=== PATIENT | male | born 1970 | race African-American/Black ===

== ENCOUNTER 2022-04-20 18:52 | Observation (INO) ==
--- NOTE | 2022-04-20 19:16 | XRay Report ---
XR chest 1V portable HISTORY: 52 years-old Male Chest pain, nonspecific acute chest pain COMPARISON: Chest radiograph and CTA chest 05/08/2012 TECHNIQUE: AP view of the chest FINDINGS: Cardiac silhouette is enlarged. Prior median sternotomy with cardiac valvular prosthesis. No pneumoth orax, or large pleural effusion or overt pulmonary edema. Descending thoracic aortic tortuosity with suggested aneurysmal dilation. Degenerative changes of the shoulders and spine. Surgical clips within the right subclavicular tissues. IMPRESSION: 1. Cardiac megaly without acute processes of the chest. 2. Descending thoracic aortic tortuosity/aneurysmal dilation. ACT 112: Negative or not required by law. The above report was generated using voice recognition software. It may contain grammatical, syntax o r spelling errors. Electronically signed by: Jarrett Crowe M.D. 04/20/2022 7:14 PM
[2022-04-20] MEDS ORDERED: NITROGLYCERIN 2% OINTMENT 30GM TUBE EXT STA (19:20)
[2022-04-20 20:15] LABS: Basophils # (auto) 0.04 K/uL (0-0.2); Basophils % (auto) 0.7 %; Eosinophils # (auto) 0.09 K/uL (0-0.50); Eosinophils % (auto) 1.7 %; Hematocrit (blood only) 45.2 % (42.0-52.0); Hemoglobin 15.4 g/dl (14.0-18.0); Immature Granulocytes # (auto) 0.02 K/uL (0.01-0.20); Immature Granulocytes % (auto) 0.4 %; Lymphocytes # (auto) 2.15 K/uL (1.2-3.4); Mean Corpuscular Hemoglobin 29.9 pg (25.0-34.0); Mean Corpuscular Hgb Conc 34.1 g/dL (32.0-36.0); Mean Corpuscular Volume 87.8 fL (80.0-100.0); Mean Platelet Volume 11.3 fL (9.4-12.4); Monocytes % (auto) 7.4 %; Neutrophils # (auto) 2.67 K/uL (1.40-6.50); Neutrophils % (auto) 49.8 %; Platelet Count 202 K/uL (130-400); RDW Coefficient of Variation 12.9 % (11.5-14.5); RDW Standard Deviation 41.4 fL (36.4-46.3); Red Blood Count 5.15 M/uL (4.70-6.10); White Blood Count 5.37 K/ul (4.8-10.8)
[2022-04-20 20:31] LABS: Albumin Globulin Ratio 1.4 (0.9-2); Albumin Level 4.1 gm/dl (3.4-5.0); BUN Creatinine Ratio 10.5 (10-20); Bilirubin,Total 0.9 mg/dl (0.2-1.0); Calcium 8.9 mg/dl (8.5-10.1); Creatinine Clr Calc Pharmacy 115.2 ml/min; Est GFR (African American) 106.2 ml/min; Est GFR (Non-African American) 91.7 ml/min; Potassium 3.4 mmol/L (3.5-5.1); Total Protein 7.1 gm/dl (6.0-8.3)
[2022-04-20 20:37] LABS: Troponin I High Sensitivity 7.2 pg/ml (0-20)
[2022-04-20 20:44] LABS: INR 1.8 (0.9-1.1); Partial Thromboplastin Ratio 1.1; Partial Thromboplastin Time 31.3 Seconds (21.0-31.0); Prothrombin Time 18.9 Seconds (9.0-12.0)
[2022-04-20] MEDS ORDERED: OPTIRAY 320 500ml IV ONE (21:29)
--- NOTE | 2022-04-20 21:32 | Emergency Department Note ---
Impression & Plan Chest pain, History of dissection of thoracic aorta, Aortic valve replaced ED Provider Note INFORMANT: Patient ED PROVIDER(S): Anand Laura MD CHIEF COMPLAINT: Chest pain PLAN: Disposition: Admitted Condition: Good Outpatient prescription management: none Referral: None MEDICAL DECISION MAKING: Patient presented to emergency department because of chest pain. He had pain relief with nitro prehospital. He felt some discomfort starting to come back and was given Nitropaste which alleviated any further pain. On reassessment he was still pain-free. He had a nonischemic ECG. Chest x-ray revealed a widened mediastinum and given his history CT dissection study of the thoracic aorta was ordered. Patient CBC and chemistry panel were unremarkable. Cardiac troponin was negative. CT dissection study reveals no obvious thoracic pathology. His study per protocol did not go through the abdomen and pelvis all the way. The patient has no abdominal symptoms or lower extremity symptoms at this time or the recent days. Given his complicated history and the chest pain relieved with nitroglycerin I discussed further management in the hospital. Patient was in agreement. Consultation was made with Dr. sanchze of the [facility]. Patient was evaluated in the ER and admitted for further management After review of the information above and other included data, I feel the patient requires admission. Triage Nursing notes reviewed and agree them. Vital Signs: reviewed and remarkable for no significant abnormalities Prior /Outside records reviewed: none Differential diagnosis: Cardiac ischemia, aortic dissection, pulmonary embolism, pneumothorax, pneumonia, pericarditis, myocarditis, esophageal rupture, GERD, cholecystitis, pancreatitis, musculoskeletal, as well as other pathologies. Diagnostics, as interpreted by me: ECG: Twelve-lead ECG reveals a normal sinus rhythm at 72 beats from. Left atrial enlargement. Nonspecific ST abnormality. LVH. No ST elevation Cardiac Monitoring: Cardiac monitoring ordered by me: The patient was placed on continuous cardiac monitoring and observed. It revealed a normal sinus rhythm at 67 beats per minute without ectopy or evidence of dysrhythmia. Medical decision rules: none Imaging studies: Chest x-ray shows dilation of the thoracic aorta. CT dissection study reveals no acute surgical problems. Prior surgical changes noted. Radiology did note the celiac trunk is abnormally opacified. HPI: The patient is a 52year old male who presents to the Emergency Room with complaints of chest pain. This started yesterday and is retrosternal. The patient also notes the following associated symptoms, some transient nausea. The patient has been given aspirin and nitroglycerin x2 by EMS for relieving factors. Current pain is rated as 0/10. Patient has a history of thoracic aortic dissection 12 years ago. He notes aortic repair as well as valve replacement. Patient is on metoprolol and Coumadin. Patient does note he occasionally misses doses of his medications. Pt denies LOC, headache, fevers, chills, diaphoresis, visual changes, neck pain, breathing difficulties, nausea, vomiting, abdominal pain, back pain, melena, hematochezia, urinary symptoms, numbness, weakness, lymphadenopathy, rash, or other complaints. PAST MEDICAL HISTORY: See Below, thoracic aortic aneurysm and dissection PAST SURGICAL HISTORY: See Below, repair of thoracic aneurysm SOCIAL HISTORY: See Below, uses marijuana HOME MEDICATIONS: See Below ALLERGIES: See Below VITALS: See Below PHYSICAL EXAMINATION: GENERAL: Awake, alert, well-appearing, in no distress HENT: Normocephalic, atraumatic. Oropharynx unremarkable. EYES: Normal conjunctiva. Sclera non-icteric. NECK: Inspection normal. Non-tender. Supple. No nuchal rigidity. FROM. No masses. RESPIRATORY: Clear to auscultation. No wheezes. No rales. Normal respiratory effort. CARDIAC: Normal rate. Normal rhythm. No murmurs. No rubs. Extremities warm and well perfused. Pulses equal. No JVD. GI: Soft, non-distended. No tenderness to palpation. No rebound or guarding. No masses. RECTAL: Deferred. MUSCULOSKELETAL: Atraumatic. Chest examination reveals no tenderness. The back is symmetrical on inspection without obvious abnormality. There is no CVA tenderness to palpation. No joint edema. LOWER EXTREMITIES: Calves are equal size bilaterally and non-tender. No edema. No discoloration. NEURO: Normal sensorium. No sensory or motor deficits noted. SKIN: No rash or jaundice noted. 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 Replacement of the descending thoracic aorta with a 30 mm tube graft -- follows with [facility] Cardiology Dyslipidemia History of colon polyps HTN (hypertension) Intracardiac thrombosis hx; approx 5 years ago -- hospitalized at [facility] -- says treated with AC therapy Non compliance w medication regimen "I'm a bad patient" -- admits to not taking prescribed medications "consistently" Poor historian Surgical History History of colonoscopy History of hernia surgery as an infant History of wisdom tooth extraction Mechanical heart valve present Family History Mother Colon cancer Father Prostate cancer Social History Smoking Status: Former smoker Second Hand Exposure: No; Hx Alcohol Use: Yes Alcohol type: beer and hard liquor Hx Substance Use: Yes Last Used Substance: Hours (ago) Preferred Language: Syriac Communication Ability: Effective Avionics Systems Technician Required: No Beliefs That Will Affect Care: None Current Living Situation: Alone current occupation: Unemployed Feels Safe at Home: Yes Assistive Devices: None Allergies Allergies Allergy/AdvReac Type Severity Reaction Status Date / Time No Known Allergies Allergy Mild Verified 04/20/22 20:53 Home Meds Home Medications Medication Instructions Recorded Confirmed amlodipine 10 mg tablet 10 mg PO QPM 01/04/21 04/20/22 aspirin 81 mg capsule 81 mg PO QPM 01/04/21 04/20/22 lisinopril 40 mg tablet 40 mg PO QPM 01/04/21 04/20/22 metoprolol succinate 200 mg 200 mg PO QPM 01/04/21 04/20/22 tablet,extended release 24 hr warfarin 5 mg tablet 5 mg PO DIRECTED 01/04/21 04/20/22 atorvastatin 20 mg tablet 20 mg PO HS 04/20/22 04/20/22 pantoprazole 40 mg tablet,delayed 40 mg PO DAILY 04/20/22 04/20/22 release trazodone 50 mg tablet 50 mg PO HS PRN Sleep 04/20/22 04/20/22 Results & Data (ED) Vital Signs Vital Signs - 24 hr 04/20/22 19:03 04/20/22 19:03 04/20/22 19:02 Temperature 36.9 C Temperature Source Oral Pulse Rate 79 Pulse Rate [Apical] 79 Pulse Rate from SpO2 Sensor Pulse Rhythm Regular Pulse Rhythm [Apical] Regular Pulse Strength Normal Pulse Strength [Apical] Normal Respiratory Rate 20 20 Respiratory Effort / Characteristics Non-Labored Non-Labored Respiratory Depth Normal Normal Respiratory Pattern Regular Regular Blood Pressure 146/85 H Blood Pressure [Right Arm] 146/85 H Blood Pressure Mean 105 Blood Pressure Mean [Right Arm] 105 Blood Pressure Position Lying Pulse Oximetry 95 95 95 Oxygen Delivery Method Room Air Room Air Room Air Sepsis Recent Fever Within 48 Hours No Sepsis New/Unexplained Change in Mental Status No Sepsis Action Taken by Nursing No Action Required 04/20/22 19:04 04/20/22 19:05 04/20/22 19:10 Temperature Temperature Source Pulse Rate 74 70 75 Pulse Rate [Apical] Pulse Rate from SpO2 Sensor 70 69 Pulse Rhythm Pulse Rhythm [Apical] Pulse Strength Pulse Strength [Apical] Respiratory Rate 19 19 Respiratory Effort / Characteristics Respiratory Depth Respiratory Pattern Blood Pressure Blood Pressure [Right Arm] Blood Pressure Mean Blood Pressure Mean [Right Arm] Blood Pressure Position Pulse Oximetry 96 94 Oxygen Delivery Method Sepsis Recent Fever Within 48 Hours Sepsis New/Unexplained Change in Mental Status Sepsis Action Taken by Nursing 04/20/22 19:20 04/20/22 19:30 04/20/22 19:40 Temperature Temperature Source Pulse Rate 74 71 72 Pulse Rate [Apical] Pulse Rate from SpO2 Sensor 72 71 72 Pulse Rhythm Pulse Rhythm [Apical] Pulse Strength Pulse Strength [Apical] Respiratory Rate 19 18 23 Respiratory Effort / Characteristics Respiratory Depth Respiratory Pattern Blood Pressure Blood Pressure [Right Arm] Blood Pressure Mean Blood Pressure Mean [Right Arm] Blood Pressure Position Pulse Oximetry 98 96 97 Oxygen Delivery Method Sepsis Recent Fever Within 48 Hours Sepsis New/Unexplained Change in Mental Status Sepsis Action Taken by Nursing 04/20/22 19:41 04/20/22 19:41 04/20/22 19:50 Temperature Temperature Source Pulse Rate 69 67 Pulse Rate [Apical] Pulse Rate from SpO2 Sensor 70 67 Pulse Rhythm Pulse Rhythm [Apical] Pulse Strength Pulse Strength [Apical] Respiratory Rate 20 19 Respiratory Effort / Characteristics Respiratory Depth Respiratory Pattern Blood Pressure 133/87 Blood Pressure [Right Arm] Blood Pressure Mean 102 Blood Pressure Mean [Right Arm] Blood Pressure Position Pulse Oximetry 96 96 Oxygen Delivery Method Sepsis Recent Fever Within 48 Hours Sepsis New/Unexplained Change in Mental Status Sepsis Action Taken by Nursing 04/20/22 20:00 04/20/22 20:00 04/20/22 20:10 Temperature Temperature Source Pulse Rate 66 68 Pulse Rate [Apical] Pulse Rate from SpO2 Sensor 66 68 Pulse Rhythm Pulse Rhythm [Apical] Pulse Strength Pulse Strength [Apical] Respiratory Rate 19 22 Respiratory Effort / Characteristics Respiratory Depth Respiratory Pattern Blood Pressure 142/86 H Blood Pressure [Right Arm] Blood Pressure Mean 104 Blood Pressure Mean [Right Arm] Blood Pressure Position Pulse Oximetry 96 96 Oxygen Delivery Method Sepsis Recent Fever Within 48 Hours Sepsis New/Unexplained Change in Mental Status Sepsis Action Taken by Nursing 04/20/22 20:20 04/20/22 20:30 04/20/22 20:30 Temperature Temperature Source Pulse Rate 65 Pulse Rate [Apical] Pulse Rate from SpO2 Sensor 66 72 Pulse Rhythm Pulse Rhythm [Apical] Pulse Strength Pulse Strength [Apical] Respiratory Rate 15 Respiratory Effort / Characteristics Respiratory Depth Respiratory Pattern Blood Pressure 131/83 Blood Pressure [Right Arm] Blood Pressure Mean 99 Blood Pressure Mean [Right Arm] Blood Pressure Position Pulse Oximetry 97 94 Oxygen Delivery Method Sepsis Recent Fever Within 48 Hours Sepsis New/Unexplained Change in Mental Status Sepsis Action Taken by Nursing 04/20/22 20:40 04/20/22 20:50 04/20/22 21:00 Temperature Temperature Source Pulse Rate 66 Pulse Rate [Apical] Pulse Rate from SpO2 Sensor 69 66 Pulse Rhythm Pulse Rhythm [Apical] Pulse Strength Pulse Strength [Apical] Respiratory Rate 18 Respiratory Effort / Characteristics Respiratory Depth Respiratory Pattern Blood Pressure 116/76 Blood Pressure [Right Arm] Blood Pressure Mean 89 Blood Pressure Mean [Right Arm] Blood Pressure Position Pulse Oximetry 96 96 Oxygen Delivery Method Sepsis Recent Fever Within 48 Hours Sepsis New/Unexplained Change in Mental Status Sepsis Action Taken by Nursing 04/20/22 21:00 04/20/22 21:31 04/20/22 21:32 Temperature Temperature Source Pulse Rate 66 68 66 Pulse Rate [Apical] Pulse Rate from SpO2 Sensor 67 69 67 Pulse Rhythm Pulse Rhythm [Apical] Pulse Strength Pulse Strength [Apical] Respiratory Rate 17 20 21 Respiratory Effort / Characteristics Respiratory Depth Respiratory Pattern Blood Pressure Blood Pressure [Right Arm] Blood Pressure Mean Blood Pressure Mean [Right Arm] Blood Pressure Position Pulse Oximetry 95 96 96 Oxygen Delivery Method Sepsis Recent Fever Within 48 Hours Sepsis New/Unexplained Change in Mental Status Sepsis Action Taken by Nursing 04/20/22 21:32 04/20/22 21:40 Temperature Temperature Source Pulse Rate 68 Pulse Rate [Apical] Pulse Rate from SpO2 Sensor 70 Pulse Rhythm Pulse Rhythm [Apical] Pulse Strength Pulse Strength [Apical] Respiratory Rate 18 Respiratory Effort / Characteristics Respiratory Depth Respiratory Pattern Blood Pressure 123/82 Blood Pressure [Right Arm] Blood Pressure Mean 95 Blood Pressure Mean [Right Arm] Blood Pressure Position Pulse Oximetry 97 Oxygen Delivery Method Sepsis Recent Fever Within 48 Hours Sepsis New/Unexplained Change in Mental Status Sepsis Action Taken by Nursing Laboratory Data 04/20/22 19:21 04/20/22 19:21 Lab Results 04/20/22 04/20/22 04/20/22 Range/Units 19:21 19:21 19:21 WBC 5.37 (4.8-10.8) K/ul RBC 5.15 (4.70-6.10) M/uL Hgb 15.4 (14.0-18.0) g/dl Hct 45.2 (42.0-52.0) % MCV 87.8 (80.0-100.0) fL MCH 29.9 (25.0-34.0) pg MCHC 34.1 (32.0-36.0) g/dL RDW Std Deviation 41.4 (36.4-46.3) fL RDW Coeff of Eyal 12.9 (11.5-14.5) % Plt Count 202 (130-400) K/uL MPV 11.3 (9.4-12.4) fL Immature Gran % (Auto) 0.4 % Neut % (Auto) 49.8 % Lymph % (Auto) 40.0 % Bee % (Auto) 7.4 % Eos % (Auto) 1.7 % Baso % (Auto) 0.7 % Neut # (Auto) 2.67 (1.40-6.50) K/uL Lymph # (Auto) 2.15 (1.2-3.4) K/uL Bee # (Auto) 0.40 (0.11-0.59) K/uL Eos # (Auto) 0.09 (0-0.50) K/uL Baso # (Auto) 0.04 (0-0.2) K/uL Immature Gran # (Auto) 0.02 (0.01-0.20) K/uL PT 18.9 H (9.0-12.0) Seconds INR 1.8 H (0.9-1.1) APTT 31.3 H (21.0-31.0) Seconds PTT Ratio 1.1 Sodium 141 (136-145) mmol/L Potassium 3.4 L (3.5-5.1) mmol/L Chloride 109 H (98-107) mmol/L Carbon Dioxide 27 (21-32) mmol/L Anion Gap 5 (3-11) BUN 10 (6-23) mg/dl Creatinine 0.95 (0.6-1.4) mg/dl Est Cr Clr Drug Dosing 115.2 ml/min Est GFR ( Amer) 106.2 ml/min Est GFR (Non-Af Amer) 91.7 ml/min BUN/Creatinine Ratio 10.5 (10-20) Glucose 107 H (70-99(Fasting)) mg/dl Calcium 8.9 (8.5-10.1) mg/dl Total Bilirubin 0.9 (0.2-1.0) mg/dl AST 20 (13-39) U/L ALT 18 (7-52) U/L Alkaline Phosphatase 57 (34-104) U/L Troponin I High Sens 7.2 (0-20) pg/ml Total Protein 7.1 (6.0-8.3) gm/dl Albumin 4.1 (3.4-5.0) gm/dl Globulin 3.0 (2.5-4.0) gm/dl Albumin/Globulin Ratio 1.4 (0.9-2) Lipase 34 (11-82) U/L Administered Medications Discontinued Medications Ioversol (Optiray 320 500ml) 99 ml IV ONCE ONE Stop: 04/20/22 21:30 Last Admin: 04/20/22 21:30 Dose: 99 ml Documented By: DG Nitroglycerin (Nitroglycerin 2% Ointment 30gm Tube) 0.5 inch EXT NOW STA Stop: 04/20/22 19:21 Last Admin: 04/20/22 19:39 Dose: 0.5 inch Documented By: RSL Imaging Data Radiologist's Impression: Chest X-Ray 04/20/22 19:02 XR chest 1V portable HISTORY: 52 years-old Male Chest pain, nonspecific acute chest pain COMPARISON: Chest radiograph and CTA chest 05/08/2012 TECHNIQUE: AP view of the chest FINDINGS: Cardiac silhouette is enlarged. Prior median sternotomy with cardiac valvular prosthesis. No pneumothorax, or large pleural effusion or overt pulmonary edema. Descending thoracic aortic tortuosity with suggested aneurysmal dilation. Degenerative changes of the shoulders and spine. Surgical clips within the right subclavicular tissues. IMPRESSION: 1. Cardiac megaly without acute processes of the chest. 2. Descending thoracic aortic tortuosity/aneurysmal dilation. ACT 112: Negative or not required by law. The above report was generated using voice recognition software. It may contain grammatical, syntax or spelling errors. Electronically signed by: Jarrett Crowe M.D. 04/20/2022 7:14 PM Discharge Plan Visit Data Chief Complaint: Chest Pain Stated Complaint: chest pain ED Provider: Anand Laura Discharge Problem: Chest pain, History of dissection of thoracic aorta, Aortic valve replaced Forms Stand Alone Forms: My [facility] [email or web address] Prescriptions Prescriptions: No Action metoprolol succinate 200 mg Tablet Extended Release 24 Hr 200 mg PO QPM amlodipine 10 mg Tablet 10 mg PO QPM warfarin 5 mg Tablet 5 mg PO DIRECTED Rx Instructions: PER PT "SON PUT 2 TABS IN EVERY DAY PILL BOX, I STOPPED FOR A WHILE, NOT SURE WHAT LEVEL I'M AT NOW". lisinopril 40 mg Tablet 40 mg PO QPM aspirin 81 mg Capsule 81 mg PO QPM atorvastatin 20 mg tablet 20 mg PO HS Rx Instructions: LAST FILLED 06/10/21 FOR 90 DAYS. trazodone 50 mg tablet 50 mg PO HS PRN (Reason: Sleep) pantoprazole 40 mg tablet,delayed release (DR/EC) 40 mg PO DAILY Referrals Referrals: Cristhian Lynn MD [Primary Care Provider] -
[2022-04-21] MEDS ORDERED: POTASSIUM CHLORIDE CRTAB 20 MEQ TABCR PO STA ×2 (00:03→08:12)
[2022-04-21] MEDS ORDERED: SODIUM CHLORIDE 0.9% 1000ML 1,000 ML IV SCH (00:55)
[2022-04-21] MEDS ORDERED: POLYETHYLENE (MIRALAX) 17 GM PACK PO PRN (00:55)
[2022-04-21] MEDS ORDERED: NITROGLYCERIN SL 0.4 MG/TAB TAB SL PRN (00:55)
[2022-04-21] MEDS ORDERED: traZODone HCL 50 MG TAB PO PRN (00:55)
[2022-04-21] MEDS ORDERED: Heparin IV Adult Wt-Based Low-Dose *NO* Bolus Protocol IV SCH (00:55)
[2022-04-21] MEDS ORDERED: ACETAMINOPHEN 325 MG TAB PO PRN (00:55)
[2022-04-21] MEDS: HEPARIN SODIUM/DEXTROSE 25,000 UNITS/500 ML BAG IV SCH (03:02)
--- NOTE | 2022-04-21 04:07 | History and Physical Report ---
DATE OF ADMISSION: 04/20/2022. CHIEF COMPLAINT: Chest pain. HISTORY OF PRESENT ILLNESS: A 52-year-old male with past medical history significant for dissection of thoracic aorta, status post repair, status post aortic valve replacement, hypertension, abdominal aortic aneurysm without rupture, history of benign neoplasm of colon, history of acute blood loss anemia, history of hepatitis C antibody positive, depression, presents with chest pain. The patient states he is noncompliant with medications, misses the medications sometimes. Last week, he missed his blood pressure medications. He is also not currently being followed with anticoagulation clinic for some time, comes because since yesterday morning, he has chest pain, pain left side radiating to his left arm, pressure-like feeling, constant pain. Nothing made worse. Occasionally feels lightheaded. Denies any shortness of breath, no nausea. Nitro relieved the pain. Currently, no pain. No fevers, no cough, no runny nose. He has some mild abdominal discomfort. Usually constipated. Moves bowels every 3 days. Normal bladder movements. No swelling in the legs. Hemodynamically stable. ALLERGIES: No known drug allergies. PAST MEDICAL HISTORY: As mentioned above. PAST SURGICAL HISTORY: Colonoscopy, left heart catheterization, thoracoabdominal aneurysm repair, aortic valve replacement with prosthetic valve. MEDICATIONS: The patient is on amlodipine 10 mg p.o. a.m., aspirin 81 mg p.o. a.m., atorvastatin 20 mg p.o. at bedtime, lisinopril 40 mg p.o. a.m., metoprolol succinate 200 mg p.o. a.m., Protonix 40 mg p.o. daily, trazodone 50 mg p.o. at bedtime p.r.n., warfarin 5 mg as directed. FAMILY HISTORY: Significant for father had prostate cancer, mother had colon cancer. SOCIAL HISTORY: Quit smoking in 2020. Smoked quarter pack a day for 15 years. Alcohol occasional. Remote history of crack cocaine use in 2005. REVIEW OF SYSTEMS: As per HPI. Rest of review of systems is negative. PHYSICAL EXAMINATION: GENERAL: The patient is of moderate build, not in acute distress. VITAL SIGNS: Temperature 36.9, pulse 66, respiratory rate 18, blood pressure 125/92, oxygen 94% on room air. HEENT: Pupils equal, round and reactive to light. Oral mucosa moist. NECK: No JVD. No neck masses. CARDIOVASCULAR: S1 and S2 heard. Regular rate and rhythm. No murmur, no gallop. RESPIRATORY SYSTEM: Normal AP diameter. No accessory muscle use. No wheezing, crackles. ABDOMEN: Soft, bowel sounds present, nontender, no distention. CENTRAL NERVOUS SYSTEM: Cranial nerves II through XII grossly intact, nonfocal. EXTREMITIES: No edema, no erythema. LABORATORY DATA: WBC 5.3, hemoglobin 15.4, hematocrit 45.2, platelets 202. PT 18.9, INR 1.8. Sodium 144, potassium 3.4, chloride 109, bicarbonate 27, BUN 10, creatinine 0.9, serum glucose 107, calcium 8.9, total bilirubin 0.9, AST 20, ALT 18, alkaline phosphatase 57. Troponin I high sensitivity is 1.2, lipase 34. SARS-CoV-2 rapid test negative. IMAGING DATA: CTA chest, preliminary report, repair of the ascending thoracic aorta and aortic valve replacement are stable. Chest x-ray, cardiomegaly without acute process.. EKG: Normal sinus rhythm at a rate of 72, possible left atrial enlargement, left axis deviation, left ventricular hypertrophy, nonspecific T-wave abnormality seen. ASSESSMENT AND PLAN: This is a 50-year-old male, who presents with chest pain. 1. Chest pain: Rule out acute coronary syndrome. Initial workup was negative. We will follow serial enzymes, echocardiogram. We will keep n.p.o. after midnight. Consult cardiology in the a.m. for further recommendation. Monitor in the [employer]. 2. History of aortic root aneurysm, noted in 2010 while he was awaiting a surgical repair had acute type A thoracic aortic dissection that extended into aortic root of iliac bifurcation, which he underwent emergent repair and mechanical valve conduit in 02/2011 and again, he developed recurrent expanding 6.5-cm arch aneurysm dissection that extended to iliacs. He was status post repair.Today CTA chest, no acute findings. We will follow the final report. The patient has aortic valve replacement, on Coumadin. INR is subtherapeutic at one point. The patient is not following regularly with Coumadin Clinic. We will place him on low-dose IV heparin and continue his Coumadin. Monitor PT/INR. Await cardiac input. 3. History of hypertension: Continue his lisinopril, metoprolol, amlodipine. We will monitor the blood pressure. The patient is missing his blood pressure medications. 4. History of Hyperlipidemia: On statin. 5. History of HCV antibody positive: Needs followup. 6. Deep venous thrombosis prophylaxis: INR is 1.8. He is on IV heparin. We will follow the PT/INR. DISPOSITION: Closely monitor in the med tele. Expect to discharge home and follow with family doctor. Level 1 full code. Job ID: [id number] [facility]ie
[2022-04-21] MEDS ORDERED: FLUARIX QUADRIVALENT 0.5 ML SYR IM ONE (05:18)
--- NOTE | 2022-04-21 08:13 | CT Scan Report ---
CT ANGIOGRAPHY OF THE CHEST DISSECTION PROTOCOL CLINICAL HISTORY: chest pain, hx of thoracic dissection COMPARISON STUDY: Chest radiograph performed earlier today. Chest CT May 08, 2012. TECHNIQUE: Before and following the IV administration of 99 mL of Optiray, helical axial images of th e chest were obtained. Maximal intensity projections and sagittal and coronal reformats were viewed on an independent 3D workstation. IV contrast was administered without complication. Automated expo sure control was utilized for the study. A dose lowering technique was utilized adhering to the prin ciples of YUSUF. CT DOSE: 830.82 mGy.cm FINDINGS: Type A aortic dissection is again noted, as shown on prior CT of May 08, 2012. Status pos t median sternotomy and aortic valve replacement and aortic root repair. Interval aortic arch repair since CT of May 08, 2012 is noted. Residual dissection flap extends into the brachiocephalic trunk. However, the brachiocephalic trunk, common carotid, subclavian and vertebral arteries are patent. The few and false lumens are opacified. Outpouching of the proximal aortic arch is likely postsurgical. The aorta measures 5.5 cm in caliber at this level. The distal aortic arch measures 4.3 cm. The dista l descending aorta measures 4 cm and the proximal abdominal aorta measures 3.7 cm. Celiac axis is pat ent and arises from the true lumen. The inferior extent of the dissection flap is not imaged on this exam. Trace left pleural effusion is likely postsurgical. There is no pericardial effusion. There is mild cardiomegaly. No central pulmonary emboli are identified. The remainder of the pulmonary arterie s suboptimally opacified. Lingular opacity favors atelectasis or scarring. There is no consolidation to suggest pneumonia. There is no pneumothorax. No thoracic lymphadenopathy is present. No acute frac tures within the visualized bony thorax are noted. Visualized portions of the upper abdomen are unrem arkable. IMPRESSION: 1. Status post aortic valve replacement and aortic root replacement. Interval aortic arch repair sin e CT of May 08, 2012. Residual dissection flap with opacification of the true and false lumens. No v essel occlusion. No definite acute findings however correlation with prior postsurgical CT, if availa ble, would be of benefit. Thoracic aortic dilatation, as described above. 2. Trace left pleural effusion which is likely postsurgical. 3. No consolidation to suggest pneumonia. 4. Mild cardiomegaly. ACT 112: Negative or not required by law. Electronically signed by: Romero Harris M.D. 04/21/2022 8:11 AM
[2022-04-21 08:29] LABS: Basophils # (auto) 0.03 K/uL (0-0.2); Basophils % (auto) 0.6 %; Eosinophils # (auto) 0.08 K/uL (0-0.50); Eosinophils % (auto) 1.6 %; Hematocrit (blood only) 45.8 % (42.0-52.0); Hemoglobin 15.6 g/dl (14.0-18.0); Immature Granulocytes # (auto) 0.01 K/uL (0.01-0.20); Immature Granulocytes % (auto) 0.2 %; Lymphocytes # (auto) 1.94 K/uL (1.2-3.4); Lymphocytes % (auto) 39.4 %; Mean Corpuscular Hemoglobin 29.5 pg (25.0-34.0); Mean Corpuscular Hgb Conc 34.1 g/dL (32.0-36.0); Mean Corpuscular Volume 86.7 fL (80.0-100.0); Mean Platelet Volume 11.1 fL (9.4-12.4); Monocytes # (auto) 0.45 K/uL (0.11-0.59); Monocytes % (auto) 9.1 %; Neutrophils # (auto) 2.41 K/uL (1.40-6.50); Neutrophils % (auto) 49.1 %; Platelet Count 217 K/uL (130-400); RDW Coefficient of Variation 12.8 % (11.5-14.5); RDW Standard Deviation 40.3 fL (36.4-46.3); Red Blood Count 5.28 M/uL (4.70-6.10); White Blood Count 4.92 K/ul (4.8-10.8)
[2022-04-21 08:38] LABS: BUN Creatinine Ratio 8.7 (10-20); Calcium 9.1 mg/dl (8.5-10.1); Creatinine Clr Calc Pharmacy 109.2 ml/min; Est GFR (African American) 110.4 ml/min; Est GFR (Non-African American) 95.3 ml/min
[2022-04-21 08:45] LABS: Troponin I High Sensitivity 9.2 pg/ml (0-20)
[2022-04-21 08:49] LABS: INR 1.9 (0.9-1.1); Prothrombin Time 19.1 Seconds (9.0-12.0)
[2022-04-21] MEDS: PANTOprazole 40 MG TAB PO SCH (09:10)
--- NOTE | 2022-04-21 09:12 | Cardiology Consultation ---
Date of Consultation April 21, 2022 Assessment & Plan (1) Chest pain: (2) History of dissection of thoracic aorta: (3) H/O mechanical aortic valve replacement: Plan Medically complex 52-year-old male who initially presented to the emergency department due to chest pain. -Overall chest pain is very atypical. High sensitive troponins were negative x2 and EKG without any concern for ACS-repeat EKG this morning showed resolution and nonspecific T wave abnormality. However, given his prior cardiac history as stated above will proceed with exercise stress echo today. -Had a lengthy discussion regarding medication compliance. Blood pressure and heart rates well controlled. No changes at this time. -Discussed risk of subtherapeutic INRs with the patient. Recommended INR goal of 2.5-3.5 given his history of mechanical AVR-agree with heparin bridge until INR is therapeutic. Will need close follow up with AC clinic as an outpatient once patient is discharged. Case discussed with Dr. Sanders. Supervising Physician Co-Signing Physician Notes Patient seen and personally examined. Complex underlying constellation of issues including prior type I aortic dissection with aortic valve replacement and aortic root repair/replacement. Repeat surgery for distal aortic involvement the arch and descending thoracic aorta with chronic descending thoracic arctic aneurysm Presents with atypical chest pain with some lapse in medical therapies. Patient referred today and underwent stress echocardiography with study negative for stress-induced ischemia at high workload achieving 9 minutes and 15 seconds on a Joel protocol and 85% age-predicted maximal heart rate. No symptoms were elicited by exercise Overall heart function was normal at rest and stress. There were no stress- induced EKG abnormalities or arrhythmia Echocardiogram demonstrates normal aortic valve prosthesis function, mildly thickened aortic root and ascending aorta consistent with surgical repair but no enlargement or pathology CT of the chest performed similar to prior study of 06/03/2021 As above urged compliance with medical therapies and hypertension control We will arrange follow-up through cardiology for ongoing aneurysm surveillance medical management History of Present Illness Reason for Consultation: Chest pain Requesting Physician: Bob alexandra Attending Physician: Shawn Desai MD History of Present Illness Medically complex 52-year-old male presented to [facility] emergency department this morning due to chest pain. Chest pain started on Sunday. Described as a pin poking/tightness sensation that started in his left chest and radiated to his left shoulder and hand. Symptoms occurring for no rhyme or reason-initially occurred while he was laying in bed. No other associated symptoms-denying palpitations, shortness of breath, nausea, or diaphoresis. Patient remains symptoms free since discharge. Notes marijuana use and occasional alcohol use. Lab work unremarkable including negative high sensitive troponin x2. Tele: SR with PACs, 60 bpm CTA of the chest 04/20: 1. Status post aortic valve replacement and aortic root replacement. Interval aortic arch repair since CT of May 08, 2012. Residual dissection flap with opacification of the true and false lumens. No vessel occlusion. No definite acute findings however correlation with prior postsur gical CT, if available, would be of benefit. Thoracic aortic dilatation, as described above. Prior CTA of the chest outpatient dated 06/2021: ANGIOGRAPHIC FINDINGS: Status post aortic valve and ascending aortic repair. There is persistent aortic dissection starting in the distal ascending aorta beyond the graft and involving the aortic arch. This is unchanged in appearance since 01/28/2020. The distal ascending aorta measures up to 43 millimeter, unchanged. There is communication between the false and true lumens in the distal arch. Dissection extends into the innominate artery with thrombosis of the false lumen, unchanged. The left common carotid and left subclavian arteries arise from both false and true lumens and are patent. The distal arch measures up to 38 millimeter, unchanged. There has been interval surgical repair of the descending thoracic aorta dissection and aneurysm. The proximal descending aorta measures 44 millimeter, previously measuring 53 millimeter. The distal descending aorta measures 40 millimeter, unchanged. EKG 04/21: Normal sinus rhythm with a first-degree AV block and PACs. Nonspecific T wave abnormality previously noted resolved. 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 Genetic testing negative Suffered type a thoracic aortic dissection extended to the aortic root and the iliac bifurcation-status post emergent repair by Dr. Velez with placement of a 27 mm Saint Suresh mechanical aortic valve conduit, 02/12/2011- on Coumadin Reexpansion of the aortic arch and dissection extending to the iliacs-status post replacement of descending thoracic aorta, 30 mm tube graft and right femoral cardiopulmonary bypass 05/11/2020 Preop cath demonstrating nonobstructive CAD, 03/18/2020 History of transient postop A-fib Hypertension History of anemia History of hep C positive Former tobacco use, quit 2020 Medication noncompliance Allergies Allergy/AdvReac Type Severity Reaction Status Date / Time No Known Allergies Allergy Mild Verified 04/20/22 20:53 Home Medications Medication Instructions Recorded Confirmed Type amlodipine 10 mg tablet 10 mg PO QPM 01/04/21 04/20/22 History aspirin 81 mg capsule 81 mg PO QPM 01/04/21 04/20/22 History lisinopril 40 mg tablet 40 mg PO QPM 01/04/21 04/20/22 History metoprolol succinate 200 mg 200 mg PO QPM 01/04/21 04/20/22 History tablet,extended release 24 hr warfarin 5 mg tablet 5 mg PO DIRECTED 01/04/21 04/20/22 History atorvastatin 20 mg tablet 20 mg PO HS 04/20/22 04/20/22 History pantoprazole 40 mg tablet,delayed 40 mg PO DAILY 04/20/22 04/20/22 History release trazodone 50 mg tablet 50 mg PO HS PRN Sleep 04/20/22 04/20/22 History Patient History Medical History (Updated 04/21/22 @ 14:36 by Shawn Desai MD) 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 Replacement of the descending thoracic aorta with a 30 mm tube graft -- follows with [facility] Cardiology Dyslipidemia History of colon polyps HTN (hypertension) Intracardiac thrombosis hx; approx 5 years ago -- hospitalized at [place] -- says treated with AC therapy Non compliance w medication regimen "I'm a bad patient" -- admits to not taking prescribed medications "consistently" Poor historian Surgical History (Updated 04/21/22 @ 09:55 by ANDREINA Posada) History of colonoscopy History of hernia surgery as an infant History of wisdom tooth extraction Mechanical heart valve present Family History Mother Colon cancer Father Prostate cancer Social History Smoking Status: Former smoker Second Hand Exposure: No; Do You Dip or Chew Tobacco: No; Tobacco Cessation Education Requested by Patient: No Hx Alcohol Use: Yes Alcohol type: beer and hard liquor Hx Substance Use: Yes Last Used Substance: Just Prior to Arrival Last Used Substance Other:: Quit cocaine a long time ago; used marijuana prior to admission and on 04/18 Preferred Language: Ethiopian Communication Ability: Effective Legal Support Analyst Required: No Beliefs That Will Affect Care: None Current Living Situation: Alone current occupation: Unemployed Other Information That Helps Us Care for You: No Feels Safe at Home: Yes Safety Concerns: Feels Safe At This Time Assistive Devices: None Review of Systems Review of Systems: All systems reviewed & are unremarkable except as noted in HPI & below Physical Exam Constitutional: WD/WN, vitals as above no acute distress Eyes: PERRL, conjunctivae normal, anicteric sclerae Neck: normal visual inspection and trachea midline Respiratory: normal respiratory effort, lungs clear to auscultation Cardiovascular: Rate/Rhythm: regular rate and regular rhythm Heart Sounds: normal S1 and normal S2 ([place] mechanical valve closure) Vessels: no JVD Extremities: no edema Gastrointestinal (Abdomen): normal bowel sounds, soft, nontender, no hepatosplenomegaly Skin: no rashes, warm and dry Psychiatric: A+Ox3, euthymic affect Results & Data ([facility]) Vital Signs (Past 12 Hours) Vital Signs Temp Pulse Pulse Pulse Resp BP BP 04/21/22 08:06 75 04/21/22 07:23 37.1 C 62 18 129/62 04/21/22 00:57 69 04/21/22 00:55 36.9 C 63 18 147/78 H 04/21/22 00:55 36.9 C 63 18 147/78 H 04/20/22 23:30 66 18 125/92 04/20/22 23:07 63 04/20/22 21:40 68 18 04/20/22 21:32 123/82 04/20/22 21:32 66 21 04/20/22 21:31 68 20 Pulse Ox O2 Del Method 04/21/22 08:06 04/21/22 07:23 95 Room Air 04/21/22 00:57 04/21/22 00:55 97 Room Air 04/21/22 00:55 97 Room Air 04/20/22 23:30 94 Room Air 04/20/22 23:07 04/20/22 21:40 97 04/20/22 21:32 04/20/22 21:32 96 04/20/22 21:31 96 Laboratory Results Cardiac Enzymes 04/20/22 04/21/22 Range/Units 19:21 07:55 AST 20 (13-39) U/L Troponin I High Sens 7.2 9.2 (0-20) pg/ml Coagulation 04/20/22 04/21/22 04/21/22 Range/Units 19:21 07:55 08:57 PT 18.9 H 19.1 H (9.0-12.0) Seconds APTT 31.3 H 54.8 H* (21.0-31.0) Seconds CBC 04/20/22 04/21/22 Range/Units 19:21 07:55 WBC 5.37 4.92 (4.8-10.8) K/ul RBC 5.15 5.28 (4.70-6.10) M/uL Hgb 15.4 15.6 (14.0-18.0) g/dl Hct 45.2 45.8 (42.0-52.0) % Plt Count 202 217 (130-400) K/uL Neut # (Auto) 2.67 2.41 (1.40-6.50) K/uL Lymph # (Auto) 2.15 1.94 (1.2-3.4) K/uL [place] # (Auto) 0.40 0.45 (0.11-0.59) K/uL Eos # (Auto) 0.09 0.08 (0-0.50) K/uL Baso # (Auto) 0.04 0.03 (0-0.2) K/uL Comprehensive Metabolic Panel 04/20/22 04/21/22 Range/Units 19:21 07:55 Sodium 141 141 (136-145) mmol/L Potassium 3.4 L 4.0 (3.5-5.1) mmol/L Chloride 109 H 108 H (98-107) mmol/L Carbon Dioxide 27 28 (21-32) mmol/L BUN 10 8 (6-23) mg/dl Creatinine 0.95 0.92 (0.6-1.4) mg/dl Glucose 107 H 83 (70-99(Fasting)) mg/dl Calcium 8.9 9.1 (8.5-10.1) mg/dl AST 20 (13-39) U/L ALT 18 (7-52) U/L Alkaline Phosphatase 57 (34-104) U/L Total Protein 7.1 (6.0-8.3) gm/dl Albumin 4.1 (3.4-5.0) gm/dl Intake and Output 04/20/22 04/21/22 04/21/22 22:59 06:59 14:59 Intake Total 88.333 / 88.333 Balance 88.333 / 88.333 Intake: IV 88.333 / 88.333 Heparin Sodium/Dextrose 25,000 88.333 / 88.333 units In 500 ml @ 1,000 UNITS/ HR 20 mls/hr IV .Q24H [facility] Rx#: [id number] Other: Other Intake Source npo Weight 100.5 kg 98.2 kg Weight Measurement Method Built in Bedscale Standing Scale Diagnostic Findings Echo 04/21/2022: LVEF 50 to 55% No wall motion abnormality Moderate concentric LVH Bileaflet Saint Suresh aortic mechanical prosthesis-gradients normal Aortic root and ascending aorta are mildly thickened consistent with past surgical repair but are of normal size Mild MR
[2022-04-21 11:02] LABS: Partial Thromboplastin Time 54.8 Seconds (21.0-31.0)
--- NOTE | 2022-04-21 14:38 | Hospitalist Progress Note ---
Date of Service April 21, 2022 Assessment & Plan (1) Chest pain: Plan: Significant cardiac history including history of mechanical aortic valve replacement and history of dissection of the thoracic aorta Has been very noncompliant with medications He was admitted with chest pain and ACS has been ruled out He underwent a stress echo and that came out to be negative for any inducible ischemia with exercise capacity above average He remained stable following the procedure No more chest pain and likely discharge tomorrow (2) History of dissection of thoracic aorta: (3) H/O mechanical aortic valve replacement: (4) HTN (hypertension): (5) Dyslipidemia: Plan Has been on Coumadin INR is 1.9 today INR should be 2.5-3.5 given mechanical aortic valve Has been on intravenous heparin and Coumadin discontinued Likely discharge tomorrow following INR being therapeutic CODE STATUS full Admission and Anticipated Discharge Date Admission Date: April 20, 2022 Subjective 04/21/2022 The patient was seen and examined in medical telemetry unit He has been very noncompliant with his medication and was admitted with chest pain No ACS and underwent a stress echo that came out to be unremarkable He has been on intravenous heparin and oral Coumadin Will be discharged when INR is therapeutic Review of Systems Review of Systems: All systems reviewed and are unremarkable except as noted below Cardiovascular: Additional Comments: No chest pain, palpitation or shortness of breath Physical Exam Physical Exam: Lying in bed comfortably Constitutional: well developed and well nourished; not ill appearing Eyes: PERRL, conjunctivae normal, anicteric sclerae ENMT: external ear and nose normal, oropharynx normal Neck: trachea midline, no thyromegaly Respiratory: no respiratory distress Auscultation: lungs clear to auscultation bilaterally Cardiovascular: Rate/Rhythm: regular rate and regular rhythm; not tachycardic Heart Sounds: normal S1 and normal S2; no murmur Extremities: no edema Gastrointestinal (Abdomen): Inspection/Auscultation: normal bowel sounds; abdomen not distended Percussion/Palpation: abdomen soft; abdomen nontender Musculoskeletal: No acute arthritis involving any joint Neurologic: normal touch/pain/proprioception and moves all extremities; no focal motor deficits Alert, awake and oriented x3 Psychiatric: A+Ox3, euthymic affect Lymphatic: no cervical or axillary lymphadenopathy Results & Data Results & Data ([facility]) Vital Signs (Past 12 Hours) Vital Signs Temp Pulse Pulse Resp BP Pulse Ox O2 Del Method 04/21/22 11:36 37.3 C 78 18 140/85 95 Room Air 04/21/22 08:06 75 04/21/22 07:23 37.1 C 62 18 129/62 95 Room Air Laboratory Results Short CBC 04/20/22 04/21/22 Range/Units 19:21 07:55 WBC 5.37 4.92 (4.8-10.8) K/ul Hgb 15.4 15.6 (14.0-18.0) g/dl Hct 45.2 45.8 (42.0-52.0) % Plt Count 202 217 (130-400) K/uL BMP 04/20/22 04/21/22 19:21 07:55 Sodium 141 141 Potassium 3.4 L 4.0 Chloride 109 H 108 H Carbon Dioxide 27 28 BUN 10 8 Creatinine 0.95 0.92 Glucose 107 H 83 Calcium 8.9 9.1 Liver Function 04/20/22 Range/Units 19:21 Total Bilirubin 0.9 (0.2-1.0) mg/dl AST 20 (13-39) U/L ALT 18 (7-52) U/L Alkaline Phosphatase 57 (34-104) U/L Albumin 4.1 (3.4-5.0) gm/dl Medications Administered Current Inpatient Medications Acetaminophen (Acetaminophen 325 Mg Tab) 650 mg PO Q4H PRN PRN Reason: Pain or Fever Stop: 05/21/22 00:54 Amlodipine Besylate (Amlodipine Besylate 5 Mg Tab) 10 mg PO QPM [facility] Stop: 05/21/22 20:59 Aspirin (Aspirin 81 Mg Ectab) 81 mg PO QPM [facility] Stop: 05/21/22 20:59 Atorvastatin Calcium (Atorvastatin 20 Mg Tab) 20 mg PO HS [facility] Stop: 05/21/22 20:59 Heparin Sodium/Dextrose (Heparin Sodium/Dextrose) 25,000 units in 500 mls @ 20 mls/hr IV .Q24H [facility]; Protocol Stop: 05/21/22 00:54 Last Titration: 04/21/22 07:27 Dose: 1,000 units/hr, 20 mls/hr Lisinopril (Lisinopril 40 Mg Tab) 40 mg PO QPM [facility] Stop: 05/21/22 20:59 Metoprolol Succinate (Metoprolol Succ 50mg Ext Rel Tab) 200 mg PO QPM [facility] Stop: 05/21/22 20:59 Miscellaneous (On Heparin And Warfarin: Pending Order) 1 each N/A DAILY@1000 [facility] Stop: 05/22/22 09:59 Nitroglycerin (Nitroglycerin Sl 0.4 Mg/Tab Tab) 0.4 mg SL UD PRN PRN Reason: Chest Pain Stop: 05/21/22 00:54 Pantoprazole Sodium (Pantoprazole 40 Mg Tab) 40 mg PO DAILY [facility] Stop: 05/21/22 08:59 Last Admin: 04/21/22 09:10 Dose: 40 mg Polyethylene Glycol (Polyethylene (Miralax) 17 Gm Pack) 17 gm PO DAILY PRN PRN Reason: Constipation Stop: 05/21/22 00:54 Trazodone HCl (Trazodone Hcl 50 Mg Tab) 50 mg PO HS PRN PRN Reason: Sleep Stop: 05/21/22 00:54 Warfarin Sodium (Warfarin Sod 5 Mg Tab) 5 mg PO DAILY@1600 [facility] Stop: 05/21/22 15:59
[2022-04-21] MEDS ORDERED: WARFARIN SOD 5 MG TAB PO SCH (16:00)
[2022-04-21] MEDS ORDERED: ATORVASTATIN 20 MG TAB PO SCH (21:00)
[2022-04-21] MEDS ORDERED: amLODIPine BESYLATE 5 MG TAB PO SCH (21:00)
[2022-04-21] MEDS ORDERED: lisinopril 40 MG TAB PO SCH (21:00)
[2022-04-21] MEDS ORDERED: ASPIRIN 81 MG ECTAB PO SCH (21:00)
[2022-04-21] MEDS ORDERED: METOPROLOL SUCC 50MG EXT REL TAB PO SCH (21:00)
--- NOTE | 2022-04-21 22:09 | Electrocardiogram Report ---
Test Reason : Blood Pressure : / mmHG Vent. Rate : 072 BPM Atrial Rate : 072 BPM P-R Int : 198 ms QRS Dur : 106 ms QT Int : 402 ms P-R-T Axes : 038 -41 -14 degrees QTc Int : 440 ms Normal sinus rhythm Possible Left atrial enlargement Left axis deviation Left ventricular hypertrophy Nonspecific T wave abnormality Abnormal ECG When compared with ECG of 08-MAY-2012 18:54, Sinus rhythm has replaced Ectopic atrial rhythm Confirmed by Sascha Wang ([id number]) on 04/21/2022 10:08:40 PM Referred By: REFERRED SELF Confirmed By:Edward Wang
--- NOTE | 2022-04-21 22:53 | Electrocardiogram Report ---
Test Reason : Blood Pressure : / mmHG Vent. Rate : 071 BPM Atrial Rate : 071 BPM P-R Int : 236 ms QRS Dur : 098 ms QT Int : 432 ms P-R-T Axes : 053 -17 051 degrees QTc Int : 469 ms Sinus rhythm with 1st degree A-V block with Premature atrial complexes Otherwise normal ECG When compared with ECG of 20-APR-2022 19:00, (unconfirmed) Premature atrial complexes are now Present MO interval has increased Confirmed by Sascha Wang ([id number]) on 04/21/2022 10:52:58 PM Referred By: REFERRED SELF Confirmed By:Edward Wang
[2022-04-22] MEDS: HEPARIN SODIUM/DEXTROSE 25,000 UNITS/500 ML BAG IV SCH (03:37)
[2022-04-22 07:27] LABS: INR 2.4 (0.9-1.1)
[2022-04-22 07:57] LABS: Partial Thromboplastin Time 55.2 Seconds (21.0-31.0)
[2022-04-22] MEDS: PANTOprazole 40 MG TAB PO SCH (08:01)
--- NOTE | 2022-04-22 11:30 | Electrocardiogram Report ---
Test Reason : Blood Pressure : / mmHG Vent. Rate : 066 BPM Atrial Rate : 066 BPM P-R Int : 228 ms QRS Dur : 108 ms QT Int : 464 ms P-R-T Axes : 055 -35 048 degrees QTc Int : 486 ms Sinus rhythm with 1st degree A-V block Left atrial enlargement Left axis deviation Prolonged QT Abnormal ECG When compared with ECG of 21-APR-2022 06:47, Premature atrial complexes are no longer Present Confirmed by Bello Patterson ([id number]) on 04/22/2022 11:29:34 AM Referred By: REFERRED SELF Confirmed By:Bello Patterson
--- NOTE | 2022-04-22 11:42 | Hospitalist Progress Note ---
Date of Service April 22, 2022 Assessment & Plan (1) Chest pain: Plan: Significant cardiac history including history of mechanical aortic valve replacement and history of dissection of the thoracic aorta Has been very noncompliant with medications He was admitted with chest pain and ACS has been ruled out He underwent a stress echo and that came out to be negative for any inducible ischemia with exercise capacity above average Denies any symptoms since admission Has been ambulating in the room without any difficulties No more pain in the chest or left shoulder He will be discharged home this afternoon (2) History of dissection of thoracic aorta: (3) H/O mechanical aortic valve replacement: (4) HTN (hypertension): (5) Dyslipidemia: Plan Has been on Coumadin INR is 1.9 today INR should be 2.5-3.5 given mechanical aortic valve Has been on intravenous heparin and Coumadin discontinued Likely discharge tomorrow following INR being therapeutic INR is 2.4 today-strongly advised to continue with current dose of Coumadin and go to the Coumadin clinic Sunday and if closed Sunday must He was strongly advised to be compliant with the medications and keep appointments with the healthcare providers CODE STATUS full Admission and Anticipated Discharge Date Admission Date: April 20, 2022 Subjective 04/21/2022 The patient was seen and examined in medical telemetry unit He has been very noncompliant with his medication and was admitted with chest pain No ACS and underwent a stress echo that came out to be unremarkable He has been on intravenous heparin and oral Coumadin Will be discharged when INR is therapeutic 04/22/2022 The patient was seen and examined in medical telemetry unit He has been feeling much better and denies any symptoms His INR is 2.4 today He will be discharged home this afternoon Review of Systems Review of Systems: All systems reviewed and are unremarkable except as noted below Cardiovascular: Additional Comments: No chest pain, palpitation or shortness of breath Physical Exam Physical Exam: Lying in bed comfortably Constitutional: well developed and well nourished; not ill appearing Eyes: PERRL, conjunctivae normal, anicteric sclerae ENMT: external ear and nose normal, oropharynx normal Neck: trachea midline, no thyromegaly Respiratory: no respiratory distress Auscultation: lungs clear to auscultation bilaterally Cardiovascular: Rate/Rhythm: regular rate and regular rhythm; not tachycardic Heart Sounds: normal S1 and normal S2; no murmur Extremities: no edema Gastrointestinal (Abdomen): Inspection/Auscultation: normal bowel sounds; abdomen not distended Percussion/Palpation: abdomen soft; abdomen nontender Musculoskeletal: No acute arthritis involving any of the joint and no tenderness over the precordium Neurologic: normal touch/pain/proprioception and moves all extremities; no focal motor deficits Psychiatric: A+Ox3, euthymic affect Lymphatic: no cervical or axillary lymphadenopathy Results & Data Results & Data ([facility]) Vital Signs (Past 12 Hours) Vital Signs Temp Pulse Pulse Resp BP Pulse Ox O2 Del Method 04/22/22 07:44 36.9 C 51 L 18 112/65 93 Room Air 04/22/22 07:42 64 04/22/22 04:00 36.7 C 62 18 127/80 98 Room Air Medications Administered Current Inpatient Medications Acetaminophen (Acetaminophen 325 Mg Tab) 650 mg PO Q4H PRN PRN Reason: Pain or Fever Stop: 05/21/22 00:54 Amlodipine Besylate (Amlodipine Besylate 5 Mg Tab) 10 mg PO QPM [facility] Stop: 05/21/22 20:59 Last Admin: 04/21/22 22:13 Dose: 10 mg Aspirin (Aspirin 81 Mg Ectab) 81 mg PO QPM [facility] Stop: 05/21/22 20:59 Last Admin: 04/21/22 22:14 Dose: 81 mg Atorvastatin Calcium (Atorvastatin 20 Mg Tab) 20 mg PO HS [facility] Stop: 05/21/22 20:59 Last Admin: 04/21/22 22:15 Dose: 20 mg Heparin Sodium/Dextrose (Heparin Sodium/Dextrose) 25,000 units in 500 mls @ 20 mls/hr IV .Q24H [facility]; Protocol Stop: 05/21/22 00:54 Last Admin: 04/22/22 03:37 Dose: 1,000 units/hr, 20 mls/hr Lisinopril (Lisinopril 40 Mg Tab) 40 mg PO QPM [facility] Stop: 05/21/22 20:59 Last Admin: 04/21/22 22:11 Dose: 40 mg Metoprolol Succinate (Metoprolol Succ 50mg Ext Rel Tab) 200 mg PO QPM [facility] Stop: 05/21/22 20:59 Last Admin: 04/21/22 22:14 Dose: 200 mg Miscellaneous (On Heparin And Warfarin: Pending Order) 1 each N/A DAILY@1000 [facility] Stop: 05/22/22 09:59 Last Admin: 04/22/22 10:50 Dose: Not Given Nitroglycerin (Nitroglycerin Sl 0.4 Mg/Tab Tab) 0.4 mg SL UD PRN PRN Reason: Chest Pain Stop: 05/21/22 00:54 Pantoprazole Sodium (Pantoprazole 40 Mg Tab) 40 mg PO DAILY [facility] Stop: 05/21/22 08:59 Last Admin: 04/22/22 08:01 Dose: 40 mg Polyethylene Glycol (Polyethylene (Miralax) 17 Gm Pack) 17 gm PO DAILY PRN PRN Reason: Constipation Stop: 05/21/22 00:54 Trazodone HCl (Trazodone Hcl 50 Mg Tab) 50 mg PO HS PRN PRN Reason: Sleep Stop: 05/21/22 00:54 Warfarin Sodium (Warfarin Sod 5 Mg Tab) 5 mg PO DAILY@1600 [facility] Stop: 05/21/22 15:59 Last Admin: 04/21/22 15:16 Dose: 5 mg
--- NOTE | 2022-04-22 16:47 | Discharge Summary ---
Date of Service April 22, 2022 Admission HPI Per Admitting Provider DICTATED BY:Larry Conrad MD DATE OF ADMISSION: 04/20/2022. CHIEF COMPLAINT: Chest pain. HISTORY OF PRESENT ILLNESS: A 52-year-old male with past medical history significant for dissection of thoracic aorta, status post repair, status post aortic valve replacement, hypertension, abdominal aortic aneurysm without rupture, history of benign neoplasm of colon, history of acute blood loss anemia, history of hepatitis C antibody positive, depression, presents with chest pain. The patient states he is noncompliant with medications, misses the medications sometimes. Last week, he missed his blood pressure medications. He is also not currently being followed with anticoagulation clinic for some time, comes because since yesterday morning, he has chest pain, pain left side radiating to his left arm, pressure-like feeling, constant pain. Nothing made worse. Occasionally feels lightheaded. Denies any shortness of breath, no nausea. Nitro relieved the pain. Currently, no pain. No fevers, no cough, no runny nose. He has some mild abdominal discomfort. Usually constipated. Moves bowels every 3 days. Normal bladder movements. No swelling in the legs. Hemodynamically stable. Admission Exam Per Admitting Provider GENERAL: The patient is of moderate build, not in acute distress. VITAL SIGNS: Temperature 36.9, pulse 66, respiratory rate 18, blood pressure 125/92, oxygen 94% on room air. HEENT: Pupils equal, round and reactive to light. Oral mucosa moist. NECK: No JVD. No neck masses. CARDIOVASCULAR: S1 and S2 heard. Regular rate and rhythm. No murmur, no gallop. RESPIRATORY SYSTEM: Normal AP diameter. No accessory muscle use. No wheezing, crackles. ABDOMEN: Soft, bowel sounds present, nontender, no distention. CENTRAL NERVOUS SYSTEM: Cranial nerves II through XII grossly intact, nonfocal. EXTREMITIES: No edema, no erythema. Principal Diagnosis Atypical chest pain, status post negative stress echo, history of mechanical aortic valve placement and history of dissection of the thoracic aorta Discharge Exam Lying in bed comfortably Constitutional well developed and well nourished; not ill appearing Eyes PERRL, conjunctivae normal, anicteric sclerae ENMT external ear and nose normal, oropharynx normal Neck trachea midline, no thyromegaly Respiratory no respiratory distress Auscultation: lungs clear to auscultation bilaterally Cardiovascular Rate/Rhythm: regular rate and regular rhythm; not tachycardic Heart Sounds: normal S1 and normal S2; no murmur Extremities: no edema Gastrointestinal (Abdomen) Inspection/Auscultation: normal bowel sounds; abdomen not distended Percussion/Palpation: abdomen soft; abdomen nontender Neurologic normal touch/pain/proprioception and moves all extremities; no focal motor deficits Psychiatric A+Ox3, euthymic affect Lymphatic no cervical or axillary lymphadenopathy Discharge Data Allergies Allergy/AdvReac Type Severity Reaction Status Date / Time No Known Allergies Allergy Mild Verified 04/20/22 20:53 Consultations 04/20/22 22:21 ED Decision to Admit Stat 04/21/22 08:00 Consult Cardiology Routine Ordered Studies 04/20/22 19:20 CT angio chest dissec wo/w con Stat Hospital Course (1) Chest pain: Significant cardiac history including history of mechanical aortic valve replacement and history of dissection of the thoracic aorta Has been very noncompliant with medications He was admitted with chest pain and ACS has been ruled out He underwent a stress echo and that came out to be negative for any inducible ischemia with exercise capacity above average Denies any symptoms since admission Has been ambulating in the room without any difficulties No more pain in the chest or left shoulder He will be discharged home this afternoon (2) History of dissection of thoracic aorta: (3) H/O mechanical aortic valve replacement: (4) HTN (hypertension): (5) Dyslipidemia: Plan Has been on Coumadin INR is 1.9 today INR should be 2.5-3.5 given mechanical aortic valve Has been on intravenous heparin and Coumadin discontinued Likely discharge tomorrow following INR being therapeutic INR is 2.4 today-strongly advised to continue with current dose of Coumadin and go to the Coumadin clinic Sunday and if closed Sunday must He was strongly advised to be compliant with the medications and keep appoin tments with the healthcare providers CODE STATUS full Total Time Total Time Spent Total Time Spent (In Minutes): 35 minutes Discharge Plan Discharge Items Patient Disposition: Home - Self-Care Reason For Visit: CHEST PAIN Discharge Diagnosis: Atypical chest pain, status post negative stress echo, history of mechanical aortic valve placement and history of dissection of the thoracic aorta Condition on Discharge: Good Activity: Resume your previous activity Non-emergency contact: Primary Care Provider Call non-emergency contact if: you have any medication questions and your symptoms worsen Follow-up/Referrals: Cristhian Lynn MD [Primary Care Provider] - (Date & Time 04/26/2022 10:00 AM Provider José Luis Krishnan MD [facility] ) Diet: Heart Healthy Addtl Attending Provider Instructions: Please take precautions to avoid falls Take your medications especially Coumadin regularly Please have a follow-up with your Coumadin clinic on Sunday and if Sunday is closed Sunday to check your INR and dose Coumadin accordingly Keep INR between 2.5-3.5 Please give appointments with your healthcare providers Pending Studies at Discharge: No Stand-Alone Forms: My [facility] [employer], Smoking Cessation Medications and DC Order Prescriptions: Continued metoprolol succinate 200 mg Tablet Extended Release 24 Hr 200 mg PO QPM amlodipine 10 mg Tablet 10 mg PO QPM warfarin 5 mg Tablet 5 mg PO DIRECTED Rx Instructions: PER PT "SON PUT 2 TABS IN EVERY DAY PILL BOX, I STOPPED FOR A WHILE, NOT SURE WHAT LEVEL I'M AT NOW". lisinopril 40 mg Tablet 40 mg PO QPM aspirin 81 mg Capsule 81 mg PO QPM atorvastatin 20 mg tablet 20 mg PO HS Rx Instructions: LAST FILLED 06/10/21 FOR 90 DAYS. trazodone 50 mg tablet 50 mg PO HS PRN (Reason: Sleep) pantoprazole 40 mg tablet,delayed release (DR/EC) 40 mg PO DAILY Discharge Orders: Discharge Order (Routine); Ordered 04/22/22 Ordered By: Shawn Gutiérrez/Other Patient Handouts: Communicating About Pain Admission Data Admit Date/Time: 04/20/22 23:50 Attending Provider: Shawn Desai Admit Provider: Larry Conrad Primary Care Provider: Cristhian Lynn Other Providers: Larry Conrad ; Lance Brito ; Jordan Mcclain ; Ravi Sanders ; Dillan Wetzel ; Roberto Fuentes ; Cristhian Lin ; Paty Hernandez ; Emiliana Hall ; Blanca Alford ; Sudeep Wilkins Other Interventions: Discharge Summary Assessment (RN) Last Done: 04/22/22 12:00
== END 2022-04-22 13:00 | disposition home or self-care (01) ==
LOC: 2W 18:52 → ED 18:52 → 2W 04-21 00:32

== ENCOUNTER 2023-05-25 23:20 | Inpatient (IN) ==
[2023-05-26 00:35] LABS: Basophils # (auto) 0.04 K/uL (0.00-0.20); Basophils % (auto) 0.7 %; Eosinophils # (auto) 0.11 K/uL (0.00-0.50); Hematocrit (blood only) 48.2 % (42.0-52.0); Immature Granulocytes # (auto) 0.01 K/uL (0.01-0.20); Immature Granulocytes % (auto) 0.2 %; Lymphocytes # (auto) 1.94 K/uL (1.20-3.40); Lymphocytes % (auto) 34.5 %; Mean Corpuscular Hemoglobin 29.1 pg (25.0-34.0); Mean Corpuscular Hgb Conc 33.2 g/dL (32.0-36.0); Mean Corpuscular Volume 87.6 fL (80.0-100.0); Mean Platelet Volume 11.5 fL (9.4-12.4); Monocytes # (auto) 0.42 K/uL (0.11-0.59); Monocytes % (auto) 7.5 %; Neutrophils % (auto) 55.1 %; Platelet Count 215 K/uL (130-400); RDW Standard Deviation 41.6 fL (36.4-46.3); White Blood Count 5.62 K/ul (4.8-10.8)
[2023-05-26 00:45] LABS: Albumin Globulin Ratio 1.2 (0.9-2); Albumin Level 4.3 gm/dl (3.4-5.0); BUN Creatinine Ratio 8.4 (10-20); Bilirubin,Total 1.6 mg/dl (0.2-1.0); Calcium 9.2 mg/dl (8.6-10.3); Creatinine Clr Calc Pharmacy 92.8 ml/min; Est GFR (African American) 91.4 ml/min; Est GFR (Non-African American) 78.8 ml/min; Globulin 3.6 gm/dl (2.5-4.0); Magnesium 2.1 mg/dl (1.7-2.4); Potassium 3.5 mmol/L (3.5-5.1); Total Protein 7.9 gm/dl (6.0-8.3)
[2023-05-26] MEDS: SODIUM CHLORIDE 0.9% 500 ML IV ONE (00:46)
--- NOTE | 2023-05-26 00:47 | Emergency Department Note ---
Impression & Plan Ptosis of left eyelid Admit to the [facility] ED Provider Note NAME: CHRISTY MACKEY AGE: 53 SEX: Male INFORMANT: Patient ED PROVIDER(S): Nika Reddy DO CHIEF COMPLAINT: Left eyelid droop PLAN: Disposition: Admit to the [facility] MEDICAL DECISION MAKING: This is a 53-year-old male patient who presents emergency department with left eyelid drooping. Patient noted double vision around 7 PM on evening. He did not think much of this and was awake throughout the night but finally fell asleep around 5 AM in the morning on Sunday which is not unusual for him. He did sleep throughout the day on Sunday and woke around 4 PM Sunday afternoon and looked in the mirror and noted that his left eyelid was drooping. He got up and about and felt wobbly and significantly dizzy and weak. He finally contacted a friend marcos who who urged him to come to the emergency department believing that he had had a stroke. Laboratory studies revealed a negative troponin, normal renal function, normal glucose and electrolytes. INR was 3.4. There was no leukocytosis and no evidence of anemia. CT scan of the brain was normal CTA of the head and neck were normal. Patient also had CTA of the chest which was unchanged. I remain concerned about the patient's ptosis of the left eye believing this could represent an acute CVA given his presentation. I discussed the case with the [facility] and they will admit for further care. Care/management discussed with: The patient, shared services manager, and the [facility] Triage Nursing notes: reviewed and agree with them. Vital Signs: reviewed and remarkable for hypertension Chronic Medical/Social Conditions affecting care: Hypertension, thoracic aortic dissection with repair Differential Diagnosis: Okeefe's palsy, acute CVA, ptosis, diplopia Diagnostics, independently interpreted by me: ECG: Normal sinus rhythm at a rate of [address] segment elevation or signs of ischemia. There is no ectopy. Cardiac Monitoring: Normal sinus rhythm at a rate of 70 Imaging studies: CT scan of the brain: As per stat rad CTA of the brain: As per stat rad CTA of the neck: As per stat rad CTA of the chest: As per stat rad HPI: 53 year old Male arrives for evaluation of left eyelid droop. Patient presents with left eyelid drooping. Patient noted double vision around 7 PM on evening. He did not think much of this and was awake throughout the night but finally fell asleep around 5 AM. He did sleep throughout the day on Sunday and woke around 4 PM in the afternoon. He looked in the mirror and noted that his left eyelid was drooped. He realized that he also felt wobbly and weak with ambulating. He also noted that he was dizzy. He contacted a friend who urged him to come to the emergency department later this evening. PAST MEDICAL HISTORY: See Below, PAST SURGICAL HISTORY: See Below, SOCIAL HISTORY: See Below, HOME MEDICATIONS: See list ALLERGIES: None VITALS: See Below PHYSICAL EXAMINATION: HEENT: Head - normocephalic and atraumatic. Pupils are equal, round, and reactive to light. Extraocular eye muscles are intact and sclera are anicteric. Ears - bilaterally patent canals with noninjected tympanic membranes and no evidence of hemotympanum. Nose - moist nasal mucosa without discharge. Mouth - moist buccal mucosa. Oropharynx is nonerythematous and there is no tonsillar exudate or edema noted. Neck: Supple; no JVD, nuchal rigidity, cervical lymphadenopathy, or auscultated bruits. Heart: Regular rate and rhythm. There is a normal S1 and S2 with no murmurs, clicks, or gallops appreciated. Lungs: Clear to auscultation bilaterally with no wheezes, rales, or rhonchi. Abdomen: Soft, completely nontender, nondistended, with good bowel sounds. There are no palpable pulsatile masses or hepatosplenomegaly. There is no guarding, rigidity, or rebound noted. Extremities: No evidence of cyanosis, clubbing, or edema. There are easily palpable peripheral pulses. Neuro:The patient is awake and alert, oriented to day, time, and place. Muscle strength is 5/5 in all 4 extremities. 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 There are no cerebellar signs. Cranial nerves are grossly intact except the left eyelid does droop. There is sparing to the forehead. Emergency department course: The patient was evaluated in room B-9. A complete history and physical was performed. An IV lock was initiated and labs were drawn as above. A twelve-lead EKG was obtained as described above. An order was placed for continuous cardiac monitoring. The patient was in a normal sinus rhythm at a rate of 70. Patient went for CT scan of the brain, CTA of the brain and neck, and CTA of the chest. I reviewed all these findings with the patient and discussed the case with the [facility] Hospitalist. 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 Surgical repair and placement of a 27 mm [place] mechanical valve conduit Dyslipidemia HTN (hypertension) Surgical History Mechanical heart valve present History of wisdom tooth extraction History of hernia surgery as an History of colonoscopy Family History Mother Colon cancer Father Prostate cancer Social History Smoking Status: Never smoker Second Hand Exposure: No; Do You Dip or Chew Tobacco: No; Tobacco Cessation Education Requested by Patient: No Hx Alcohol Use: Yes Alcohol type: beer Hx Substance Use: Yes Last Used Substance: Days (ago) Last Used Substance Other:: Quit cocaine a long time ago; used marijuana prior to admission and on 04/18 Preferred Language: [place] Communication Ability: Effective Powdered Sugar Supervisor Required: No Beliefs That Will Affect Care: None Current Living Situation: Alone current occupation: Unemployed Other Information That Helps Us Care for You: No Feels Safe at Home: Yes Assistive Devices: Glasses Allergies Allergies Allergy/AdvReac Type Severity Reaction Status Date / Time No Known Allergies Allergy Mild Verified 04/20/22 20:53 Home Meds Home Medications Medication Instructions Recorded Confirmed amlodipine 10 mg tablet 10 mg PO QPM 01/04/21 05/26/23 aspirin 81 mg capsule 81 mg PO QPM 01/04/21 05/26/23 lisinopril 40 mg tablet 40 mg PO QPM 01/04/21 05/26/23 metoprolol succinate 200 mg 200 mg PO QPM 01/04/21 05/26/23 tablet,extended release 24 hr warfarin 5 mg tablet 5 mg PO DIRECTED 01/04/21 05/26/23 atorvastatin 20 mg tablet 20 mg PO HS 04/20/22 05/26/23 pantoprazole 40 mg tablet,delayed 40 mg PO DAILY 04/20/22 05/26/23 release Results & Data (ED) Vital Signs Vital Signs - 24 hr 05/25/23 23:31 Temperature 36.8 C Temperature Source Temporal Artery Scan Pulse Rate 70 Respiratory Rate 18 Blood Pressure 172/102 H Blood Pressure Mean 125 Blood Pressure Position Sitting Pulse Oximetry 98 Oxygen Delivery Method Room Air Sepsis Recent Fever Within 48 Hours No Sepsis New/Unexplained Change in Mental Status N/A Sepsis Action Taken by Nursing No Action Required Laboratory Data 05/28/23 07:02 05/28/23 07:02 Lab Results 05/26/23 05/26/23 Range/Units 00:00 02:09 WBC 5.62 (4.8-10.8) K/ul RBC 5.50 (4.70-6.10) M/uL Hgb 16.0 (14.0-18.0) g/dl Hct 48.2 (42.0-52.0) % MCV 87.6 (80.0-100.0) fL MCH 29.1 (25.0-34.0) pg MCHC 33.2 (32.0-36.0) g/dL RDW Std Deviation 41.6 (36.4-46.3) fL RDW Coeff of Eyal 13.0 (11.5-14.5) % Plt Count 215 (130-400) K/uL MPV 11.5 (9.4-12.4) fL Immature Gran % (Auto) 0.2 % Neut % (Auto) 55.1 % Lymph % (Auto) 34.5 % [place] % (Auto) 7.5 % Eos % (Auto) 2.0 % Baso % (Auto) 0.7 % Neut # (Auto) 3.10 (1.40-6.50) K/uL Lymph # (Auto) 1.94 (1.20-3.40) K/uL [place] # (Auto) 0.42 (0.11-0.59) K/uL Eos # (Auto) 0.11 (0.00-0.50) K/uL Baso # (Auto) 0.04 (0.00-0.20) K/uL Immature Gran # (Auto) 0.01 (0.01-0.20) K/uL PT 34.7 H (9.0-12.0) Seconds INR 3.4 H (0.9-1.1) APTT 46 H (21-31) Seconds PTT Ratio 1.6 Sodium 142 (136-145) mmol/L Potassium 3.5 (3.5-5.1) mmol/L Chloride 107 (98-107) mmol/L Carbon Dioxide 27 (21-32) mmol/L Anion Gap 8 (3-11) BUN 9 (6-23) mg/dl Creatinine 1.07 (0.6-1.4) mg/dl Est Cr Clr Drug Dosing 92.8 ml/min Est GFR ( Amer) 91.4 ml/min Est GFR (Non-Af Amer) 78.8 ml/min BUN/Creatinine Ratio 8.4 L (10-20) Glucose 82 (70-99(Fasting)) mg/dl Calcium 9.2 (8.6-10.3) mg/dl Magnesium 2.1 (1.7-2.4) mg/dl Total Bilirubin 1.6 H (0.2-1.0) mg/dl AST 23 (13-39) U/L ALT 39 (7-52) U/L Alkaline Phosphatase 68 (34-104) U/L Troponin I High Sens 9.2 (0-20) pg/ml Total Protein 7.9 (6.0-8.3) gm/dl Albumin 4.3 (3.4-5.0) gm/dl Globulin 3.6 (2.5-4.0) gm/dl Albumin/Globulin Ratio 1.2 (0.9-2) Urine Color Yellow Urine Appearance Clear (Clear) Urine pH 8.0 H (4.5-7.5) Ur Specific [place] 1.030 (1.000-1.030) Urine Protein Negative (Negative) Urine Glucose (UA) Negative (Negative) Urine Ketones Negative (Negative) Urine Blood Negative (Negative) Urine Nitrite Negative (Negative) Urine Bilirubin Negative (Negative) Urine Urobilinogen Negative (Negative) Ur Leukocyte Esterase Negative (Negative) Urine Opiates Screen Neg (Neg) Ur Methadone, Qual Neg (Neg) Urine Barbiturates Neg (Neg) Ur Phencyclidine (PCP) Neg (Neg) U Amphetamin/Meth Scrn Neg (Neg) MDMA (Ecstasy) Screen Neg (Neg) U Benzodiazepines Scrn Neg (Neg) Ur Cocaine Metabolite Neg (Neg) U Marijuana (THC) Screen Pos H (Neg) U Marijuana THC Carboxy 435 H (<5) ng/mL Drug Screen Comment SEE NOTE Administered Medications Amlodipine Besylate (Amlodipine Besylate 5 Mg Tab) 10 mg PO QAM EMANUEL Stop: 06/27/23 08:59 Last Admin: 05/28/23 08:57 Dose: 10 mg Documented By: JOSELO Atorvastatin Calcium (Atorvastatin 20 Mg Tab) 20 mg PO HS [facility] Stop: 06/25/23 20:59 Last Admin: 05/27/23 21:10 Dose: 20 mg Documented By: Admin: 05/26/23 20:27 Dose: 20 mg Documented By: NAZANIN Clopidogrel Bisulfate (Clopidogrel Bisulfate 75 Mg Tab) 75 mg PO DAILY [facility] Stop: 06/27/23 09:59 Last Admin: 05/28/23 10:08 Dose: 75 mg Documented By: JOSELO Metoprolol Succinate (Metoprolol Succ 25mg Ext Rel Tab) 25 mg PO QPM [facility] Stop: 06/25/23 20:59 Last Admin: 05/27/23 21:10 Dose: 25 mg Documented By: Admin: 05/26/23 20:27 Dose: 25 mg Documented By: NAZANIN Pantoprazole Sodium (Pantoprazole 40 Mg Tab) 40 mg PO DAILY [facility] Stop: 06/25/23 09:02 Last Admin: 05/28/23 08:56 Dose: 40 mg Documented By: Admin: 05/27/23 08:48 Dose: 40 mg Documented By: Admin: 05/26/23 12:29 Dose: 40 mg Documented By: DOMINIC Warfarin Sodium (Warfarin Sod 5 Mg Tab) 5 mg PO [id number]@1600 [facility] Stop: 06/25/23 15:59 Last Admin: 05/26/23 15:50 Dose: 5 mg Documented By: LND Warfarin Sodium (Warfarin Sod 10 Mg Tab) 10 mg PO [email or web address]@1600 EMANUEL Stop: 06/26/23 15:59 Last Admin: 05/27/23 18:07 Dose: 10 mg Documented By: YUE Discontinued Medications Amlodipine Besylate (Amlodipine Besylate 5 Mg Tab) 10 mg PO NOW ONE Stop: 05/27/23 12:37 Last Admin: 05/27/23 14:59 Dose: 10 mg Documented By: YUE Aspirin (Aspirin 81 Mg Ectab) 81 mg PO QPM EMANUEL Stop: 06/25/23 20:59 Last Admin: 05/27/23 21:10 Dose: 81 mg Documented By: Admin: 05/26/23 20:27 Dose: 81 mg Documented By: NAZANIN Sodium Chloride (Nss) 500 mls @ 999 mls/hr IV .Q31M ONE Stop: 05/26/23 00:37 Last Infusion: 05/26/23 01:24 Dose: Infused Documented By: Admin: 05/26/23 00:46 Dose: 999 mls/hr Documented By: SHAHEEN Potassium Chloride 20 meq/ (Lactated Ringer's) 1,010 mls @ 60 mls/hr IV .[id number] ONE Stop: 05/26/23 21:42 Last Infusion: 05/26/23 13:33 Dose: Infused Documented By: Admin: 05/26/23 06:02 Dose: 60 mls/hr Documented By: ALEJANDRA Sodium Chloride (Nss) 1,000 mls @ 125 mls/hr IV .Q8H EMANUEL Stop: 06/25/23 13:29 Last Admin: 05/27/23 21:18 Dose: Not Given Documented By: Infusion: 05/27/23 14:48 Dose: Infused Documented By: Admin: 05/27/23 14:47 Dose: Not Given Documented By: Admin: 05/27/23 04:28 Dose: 125 mls/hr Documented By: Infusion: 05/27/23 04:28 Dose: Infused Documented By: Admin: 05/26/23 20:29 Dose: 125 mls/hr Documented By: Infusion: 05/26/23 20:29 Dose: Infused Documented By: Admin: 05/26/23 13:32 Dose: 125 mls/hr Documented By: DOMINIC Pneumococcal 20-Valent Conj Vacc (Pneumococcal Vaccine (Pcv20) 20-Essie Conj-Dip Crm/Pf 0.5 Ml Syr) 0.5 ml IM .ONCE ONE Stop: 05/27/23 07:32 Last Admin: 05/27/23 18:18 Dose: 0.5 ml Documented By: MM Potassium Chloride (Potassium Chloride Crtab 20 Meq Tabcr) 40 meq PO NOW STA Stop: 05/26/23 04:56 Last Admin: 05/26/23 05:43 Dose: 40 meq Documented By: NAW Potassium Chloride (Potassium Chloride Crtab 20 Meq Tabcr) 40 meq PO NOW STA Stop: 05/28/23 08:00 Last Admin: 05/28/23 08:40 Dose: 40 meq Documented By: WRL Discharge Plan Visit Data Chief Complaint: TIA Symptoms Stated Complaint: LT EYE DROOPING, DIZZY, SINCE 3AM, SOME NUMBNESS ED Provider: Nika Reddy Discharge Problem: Ptosis of left eyelid Patient Disposition: Admitted As Inpatient Discharge Instructions Interventions: ED Discharge Assessment Last Done: 05/26/23 08:36
[2023-05-26 00:51] LABS: Troponin I High Sensitivity 9.2 pg/ml (0-20)
[2023-05-26 01:01] LABS: INR 3.4 (0.9-1.1); Partial Thromboplastin Ratio 1.6; Partial Thromboplastin Time 46 Seconds (21-31); Prothrombin Time 34.7 Seconds (9.0-12.0)
[2023-05-26 02:16] LABS: Appearance Urine Clear (Clear); Bilirubin Urine Negative (Negative); Blood Urine Negative (Negative); Color Urine Yellow; Glucose Urine UA Negative (Negative); Ketones Urine Negative (Negative); Leukocyte Esterase Urine Negative (Negative); Nitrite Urine Negative (Negative); Protein Urine Negative (Negative); Urobilinogen Urine Negative (Negative)
--- NOTE | 2023-05-26 02:52 | CT Scan Report ---
Exam(s): CTA HEAD With Contrast IV Amt: 118 ML EXAM: CT Angiography Head With Intravenous Contrast CLINICAL HISTORY: Reason for exam: neuro deficit, acute stroke suspected. TECHNIQUE: Axial computed tomographic angiography images of the head with intravenous contrast. Automated exposure control was utilized for the study. A dose lowering technique was utilized adhering to the principles of ALARA. MIP reconstructed images were created and reviewed. CONTRAST: Patient received 118 ML of IV contrast COMPARISON: No relevant prior studies available. FINDINGS: The dural venous sinuses are patent. Right internal carotid artery: No acute findings. Intracranial segment is patent with no significant stenosis. No aneurysm. Right anterior cerebral artery: Unremarkable. No occlusion or significant stenosis. No aneurysm. Right middle cerebral artery: Ectatic M1 segment. No aneurysm. Right posterior cerebral artery: Unremarkable. No occlusion or significant stenosis. No aneurysm. Right vertebral artery: Unremarkable as visualized. Left internal carotid artery: No acute findings. Intracranial segment is patent with no significant stenosis. No aneurysm. Left anterior cerebral artery: Ectatic left A2 segment. No aneurysm. Left middle cerebral artery: Ectatic M1 segment. No aneurysm. Left posterior cerebral artery: Unremarkable. No occlusion or significant stenosis. No aneurysm. Left vertebral artery: Unremarkable as visualized. Basilar artery: Vertebral basilar dolichoectasia. No occlusion or significant stenosis. No aneurysm. IMPRESSION: Negative CT angiogram of the head. Electronically signed by: Philomena Hughes MD 05/26/23 02:51 AM
--- NOTE | 2023-05-26 02:54 | CT Scan Report ---
Exam(s): CT HEAD Without Contrast EXAM: CT Head Without Intravenous Contrast CLINICAL HISTORY: Reason for exam: neuro deficit, acute stroke suspected. TECHNIQUE: Axial computed tomography images of the head/brain without intravenous contrast. Automated exposure control was utilized for the study. A dose lowering technique was utilized adhering to the principles of ALARA. COMPARISON: No relevant prior studies available. FINDINGS: Brain: Remote ischemic injuries of the bilateral cerebellar lobes. No hemorrhage. No significant white matter disease. No edema. Ventricles: Unremarkable. No ventriculomegaly. Bones/joints: Unremarkable. No acute fracture. Soft tissues: Unremarkable. Sinuses: Unremarkable as visualized. No acute sinusitis. Mastoid air cells: Unremarkable as visualized. No mastoid effusion. IMPRESSION: No evidence of acute intracranial pathology. Electronically signed by: Philomena Hughes MD 05/26/23 02:53 AM
--- NOTE | 2023-05-26 03:02 | CT Scan Report ---
Exam(s): CTA CHEST W/WO Contrast IV Amt: 118 ML EXAM: CT Angiography Chest Without and With Intravenous Contrast CLINICAL HISTORY: Reason for exam: Right face and arm weak/numb. TECHNIQUE: Axial computed tomographic angiography images of the chest without and with intravenous contrast. Automated exposure control was utilized for the study. A dose lowering technique was utilized adhering to the principles of ALARA. MIP reconstructed images were created and reviewed. CONTRAST: Patient received 118 ML of IV contrast COMPARISON: Comparison made to prior CT scan chest from April 17, 2023. FINDINGS: Pulmonary arteries: Unremarkable. No pulmonary embolism. Aorta: There is a dissection of the ascending and proximal descending aorta with filling of the true and false lumens. 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 Status post heart valve replacement. There is a dissection of the proximal abdominal, incompletely visualized. Lungs: Unremarkable. No mass. No consolidation. Pleural space: Unremarkable. No significant effusion. No pneumothorax. Heart: Unremarkable. No cardiomegaly. No significant pericardial effusion. No evidence of RV dysfunction. Bones/joints: Status post median sternotomy. No acute fracture. No dislocation. Soft tissues: Cholelithiasis without cholecystitis. Lymph nodes: Unremarkable. No enlarged lymph nodes. IMPRESSION: No evidence of acute thoracic pathology. Stable aortic dissection status post aortic valve replacement. Electronically signed by: Philomena Hughes MD 05/26/23 03:01 AM
--- NOTE | 2023-05-26 03:07 | CT Scan Report ---
Exam(s): CTA NECK With Contrast IV Amt: 118 ML EXAM: CT Angiography Neck With Intravenous Contrast CLINICAL HISTORY: Reason for exam: neuro deficit, acute stroke suspected. TECHNIQUE: Routine carotid CT angiography protocol was performed with intravenous contrast. NASCET criteria using the distal ICAs for comparison were used for evaluation of stenoses. Automated exposure control was utilized for the study. A dose lowering technique was utilized adhering to the principles of ALARA. MIP reconstructed images were created and reviewed. CONTRAST: Patient received 118 ML of IV contrast COMPARISON: None. FINDINGS: VASCULATURE: Right common carotid artery: Unremarkable. No occlusion or significant stenosis. No dissection. Right internal carotid artery: Unremarkable. Extracranial segment is patent with no occlusion or significant stenosis. No dissection. Right external carotid artery: Unremarkable. No occlusion. Right vertebral artery: Unremarkable. No occlusion or significant stenosis. No dissection. Left common carotid artery: Unremarkable. No occlusion or significant stenosis. No dissection. Left internal carotid artery: Unremarkable. Extracranial segment is patent with no occlusion or significant stenosis. No dissection. Left external carotid artery: Unremarkable. No occlusion. Left vertebral artery: Unremarkable. No occlusion or significant stenosis. No dissection. NECK: Bones/joints: Severe spinal canal stenosis at C6-7. No acute fracture. Soft tissues: Unremarkable. Lung apices: Clear. CAROTID STENOSIS REFERENCE USING NASCET CRITERIA: % ICA stenosis = (1 - narrowest ICA diameter/diameter of distal cervical ICA) x 100. Mild - <50% stenosis. Moderate - 50-69% stenosis. Severe - 70-94% stenosis. Near occlusion - 95-99% stenosis. Occluded - 100% stenosis. IMPRESSION: Negative CTA neck. Electronically signed by: Philomena Hughes MD 05/26/23 03:06 AM
[2023-05-26] MEDS: POTASSIUM CHLORIDE CRTAB 20 MEQ TABCR PO STA (05:43)
--- NOTE | 2023-05-26 05:52 | History & Physical Report ---
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 Rule out CVA given patient vascular risk factors Hx Marfan syndrome/collagen vascular disease as per records hx PVD, aortic aneurysm/dissection status post surgery, mechanical AVR on Coumadin, INR therapeutic hypertension, elevated secondary illness hyperlipidemia on statin Rx prediabetes, hemoglobin A1c of 5.10 Jul 2023 GERD, on PPI history HCV antibody possibility, never required treatment as per patient mood disorder, stable past tobacco/cocaine abuse Medical telemetry Continue home antiplatelet and anticoagulation Rx Neurochecks MRI brain, TTE for stroke workup Neurology consult Re: Left eye ptosis Permissive hypertension until stroke ruled out as cause of left eye ptosis DVT prophylaxis. Coumadin INR goal between 2.5-3.5, history mechanical AVR Full code Text document was generated using [employer] voice recognition software. It may contain grammatical or spelling errors. Kindly contact undersigned for clarification of any documentation item in question. History of Present Illness Chief Complaint: Double vision, droopy left eye Primary Care Provider: Neri Yeung MD History obtained from patient and records. Medical history significant for PVD, aortic aneurysm/dissection status post surgery, mechanical AVR on Coumadin, hypertension, hyperlipidemia, Marfan syndrome/collagen vascular disease as per records, prediabetes, GERD, history HCV, mood disorder, presbyopia as per records, past tobacco/cocaine abuse. Last confinement April 2022 for atypical chest pain. Stress echo negative for inducible ischemia. Few weeks ago patient noted left lower extremity numbness which later involved the upper extremity as per patient. No unusual back/neck pain or recollection of trauma. Patient seen at PCPs office last month. Neuropathy workup recommended. 2 days ago, patient noted double vision both eyes more persistent than usual. Left-sided headache symptoms. Patient woke up yesterday and noted droopy left eye. No arm or leg weakness or slurred speech. No chest pain, no SOB. Compliant with home medications. Patient gives history of intermittent double vision both eyes since aneurysm surgery from years ago. Usually precipitated by fatigue and sleepiness; resolved with rest. Droopy left eye is a new problem as per patient. Patient brought by friend to the ER. Medical History as above Surgical History : Hernia repair, dental surgery, sternal debridement, mechanical AVR, thoracoabdominal aortic aneurysm repair with graft Family History : Stroke, prostate cancer, colon cancer Personal/Social history : Past tobacco abuse, occasional EtOH intake, disabled Allergies Allergy/AdvReac Type Severity Reaction Status Date / Time No Known Allergies Allergy Mild Verified 04/20/22 20:53 Home Medications Medication Instructions Recorded Confirmed Type amlodipine 10 mg tablet 10 mg PO QPM 01/04/21 05/26/23 History aspirin 81 mg capsule 81 mg PO QPM 01/04/21 05/26/23 History lisinopril 40 mg tablet 40 mg PO QPM 01/04/21 05/26/23 History metoprolol succinate 200 mg 200 mg PO QPM 01/04/21 05/26/23 History tablet,extended release 24 hr warfarin 5 mg tablet 5 mg PO DIRECTED 01/04/21 05/26/23 History atorvastatin 20 mg tablet 20 mg PO HS 04/20/22 05/26/23 History pantoprazole 40 mg tablet,delayed 40 mg PO DAILY 04/20/22 05/26/23 History release Past Med/Surg History Medical History Non compliance w medication regimen "I'm a bad patient" -- admits to not taking prescribed medications "consistently" Poor historian Intracardiac thrombosis hx; approx 5 years ago -- hospitalized at [facility] -- says treated with AC therapy History of colon polyps 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 Surgical repair and placement of a 27 mm [place] mechanical valve conduit Dyslipidemia HTN (hypertension) Surgical History (Updated 05/02/23 @ 00:09 by Eleni Eagle) Mechanical heart valve present History of wisdom tooth extraction History of hernia surgery as an History of colonoscopy Family History Mother Colon cancer Father Prostate cancer Social History Smoking Status: Never smoker Second Hand Exposure: No; Do You Dip or Chew Tobacco: No; Hx Alcohol Use: Yes Alcohol type: beer and hard liquor Hx Substance Use: Yes Last Used Substance: Just Prior to Arrival Last Used Substance Other:: Quit cocaine a long time ago; used marijuana prior to admission and on 04/18 Preferred Language: Serbian Communication Ability: Effective Slurry Control Tender Required: No Beliefs That Will Affect Care: None Current Living Situation: Alone current occupation: Unemployed Feels Safe at Home: Yes Assistive Devices: None Review of Systems Review of Systems: As per HPI, all other systems reviewed and negative Physical Exam 2 Physical Exam: GENERAL: Comfortable, pleasant, no respiratory distress SKIN: Normal color, warm HEENT: [place] palpebral conjunctivae, left ptosis, moist buccal mucosa NECK : Supple, no tenderness CHEST : CTA, no tenderness HEART : RRR, mechanical murmur ABDOMEN: Some distention, nontender EXTREMITIES : No LE swelling/tenderness, no other conspicuous deformities noted NEUROLOGIC : Coherent, left ptosis, limited adduction left eye, no facial droop, MMTs BUE 4/5, BLE 4/5, gait and stance not assessed Results & Data Results & Data Vital Signs (Past 12 Hours) Vital Signs Temp Pulse Resp BP Pulse Ox O2 Del Method 05/26/23 05:10 60 05/26/23 04:30 61 18 145/87 H 94 05/26/23 04:00 57 L 18 136/87 93 05/26/23 03:30 57 L 19 132/87 94 05/26/23 03:00 138/91 05/26/23 03:00 56 L 25 H 95 05/26/23 02:30 68 18 142/88 H 96 05/26/23 02:03 63 16 140/103 H 97 05/26/23 01:51 61 19 163/100 H 99 05/26/23 01:00 65 19 167/104 H 98 05/26/23 00:30 66 23 160/114 H 97 05/26/23 00:01 69 21 129/95 05/25/23 23:55 69 20 148/90 H 99 05/25/23 23:31 36.8 C 70 18 172/102 H 98 Room Air Laboratory Results Laboratory Results WBC 5.62 K/ul (4.8-10.8) 05/26/23 00:00 RBC 5.50 M/uL (4.70-6.10) 05/26/23 00:00 Hgb 16.0 g/dl (14.0-18.0) 05/26/23 00:00 Hct 48.2 % (42.0-52.0) 05/26/23 00:00 MCV 87.6 fL (80.0-100.0) 05/26/23 00:00 MCH 29.1 pg (25.0-34.0) 05/26/23 00:00 MCHC 33.2 g/dL (32.0-36.0) 05/26/23 00:00 RDW Std Deviation 41.6 fL (36.4-46.3) 05/26/23 00:00 RDW Coeff of Eyal 13.0 % (11.5-14.5) 05/26/23 00:00 Plt Count 215 K/uL (130-400) 05/26/23 00:00 MPV 11.5 fL (9.4-12.4) 05/26/23 00:00 Immature Gran % (Auto) 0.2 % 05/26/23 00:00 Neut % (Auto) 55.1 % 05/26/23 00:00 Lymph % (Auto) 34.5 % 05/26/23 00:00 Baker % (Auto) 7.5 % 05/26/23 00:00 Eos % (Auto) 2.0 % 05/26/23 00:00 Baso % (Auto) 0.7 % 05/26/23 00:00 Neut # (Auto) 3.10 K/uL (1.40-6.50) 05/26/23 00:00 Lymph # (Auto) 1.94 K/uL (1.20-3.40) 05/26/23 00:00 Baker # (Auto) 0.42 K/uL (0.11-0.59) 05/26/23 00:00 Eos # (Auto) 0.11 K/uL (0.00-0.50) 05/26/23 00:00 Baso # (Auto) 0.04 K/uL (0.00-0.20) 05/26/23 00:00 Immature Gran # (Auto) 0.01 K/uL (0.01-0.20) 05/26/23 00:00 PT 34.7 Seconds (9.0-12.0) H 05/26/23 00:00 INR 3.4 (0.9-1.1) H 05/26/23 00:00 APTT 46 Seconds (21-31) H 05/26/23 00:00 PTT Ratio 1.6 05/26/23 00:00 Sodium 142 mmol/L (136-145) 05/26/23 00:00 Potassium 3.5 mmol/L (3.5-5.1) 05/26/23 00:00 Chloride 107 mmol/L (98-107) 05/26/23 00:00 Carbon Dioxide 27 mmol/L (21-32) 05/26/23 00:00 Anion Gap 8 (3-11) 05/26/23 00:00 BUN 9 mg/dl (6-23) 05/26/23 00:00 Creatinine 1.07 mg/dl (0.6-1.4) 05/26/23 00:00 Est Cr Clr Drug Dosing 92.8 ml/min 05/26/23 00:00 Est GFR ( Amer) 91.4 ml/min 05/26/23 00:00 Est GFR (Non-Af Amer) 78.8 ml/min 05/26/23 00:00 BUN/Creatinine Ratio 8.4 (10-20) L 05/26/23 00:00 Glucose 82 mg/dl (70-99(Fasting)) 05/26/23 00:00 Calcium 9.2 mg/dl (8.6-10.3) 05/26/23 00:00 Magnesium 2.1 mg/dl (1.7-2.4) 05/26/23 00:00 Total Bilirubin 1.6 mg/dl (0.2-1.0) H 05/26/23 00:00 AST 23 U/L (13-39) 05/26/23 00:00 ALT 39 U/L (7-52) 05/26/23 00:00 Alkaline Phosphatase 68 U/L (34-104) 05/26/23 00:00 Troponin I High Sens 9.2 pg/ml (0-20) 05/26/23 00:00 Total Protein 7.9 gm/dl (6.0-8.3) 05/26/23 00:00 Albumin 4.3 gm/dl (3.4-5.0) 05/26/23 00:00 Globulin 3.6 gm/dl (2.5-4.0) 05/26/23 00:00 Albumin/Globulin Ratio 1.2 (0.9-2) 05/26/23 00:00 Urine Color Yellow 05/26/23 02:09 Urine Appearance Clear (Clear) 05/26/23 02:09 Urine pH 8.0 (4.5-7.5) H 05/26/23 02:09 Ur Specific [place] 1.030 (1.000-1.030) 05/26/23 02:09 Urine Protein Negative (Negative) 05/26/23 02:09 Urine Glucose (UA) Negative (Negative) 05/26/23 02:09 Urine Ketones Negative (Negative) 05/26/23 02:09 Urine Blood Negative (Negative) 05/26/23 02:09 Urine Nitrite Negative (Negative) 05/26/23 02:09 Urine Bilirubin Negative (Negative) 05/26/23 02:09 Urine Urobilinogen Negative (Negative) 05/26/23 02:09 Ur Leukocyte Esterase Negative (Negative) 05/26/23 02:09 Impressions Chest CTA 05/26/23 00:07 Exam(s): CTA CHEST W/WO Contrast IV Amt: 118 ML EXAM: CT Angiography Chest Without and With Intravenous Contrast CLINICAL HISTORY: Reason for exam: Right face and arm weak/numb. TECHNIQUE: Axial computed tomographic angiography images of the chest without and with intravenous contrast. Automated exposure control was utilized for the study. A dose lowering technique was utilized adhering to the principles of ALARA. MIP reconstructed images were created and reviewed. CONTRAST: Patient received 118 ML of IV contrast COMPARISON: Comparison made to prior CT scan chest from April 17, 2023. FINDINGS: Pulmonary arteries: Unremarkable. No pulmonary embolism. Aorta: There is a dissection of the ascending and proximal descending aorta with filling of the true and false lumens. 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 Status post heart valve replacement. There is a dissection of the proximal abdominal, incompletely visualized. Lungs: Unremarkable. No mass. No consolidation. Pleural space: Unremarkable. No significant effusion. No pneumothorax. Heart: Unremarkable. No cardiomegaly. No significant pericardial effusion. No evidence of RV dysfunction. Bones/joints: Status post median sternotomy. No acute fracture. No dislocation. Soft tissues: Cholelithiasis without cholecystitis. Lymph nodes: Unremarkable. No enlarged lymph nodes. IMPRESSION: No evidence of acute thoracic pathology. Stable aortic dissection status post aortic valve replacement. Electronically signed by: Philomena Hughes MD 05/26/23 03:[address] 05/26/23 00:08 Exam(s): CT HEAD Without Contrast EXAM: CT Head Without Intravenous Contrast CLINICAL HISTORY: Reason for exam: neuro deficit, acute stroke suspected. TECHNIQUE: Axial computed tomography images of the head/brain without intravenous contrast. Automated exposure control was utilized for the study. A dose lowering technique was utilized adhering to the principles of ALARA. COMPARISON: No relevant prior studies available. FINDINGS: Brain: Remote ischemic injuries of the bilateral cerebellar lobes. No hemorrhage. No significant white matter disease. No edema. Ventricles: Unremarkable. No ventriculomegaly. Bones/joints: Unremarkable. No acute fracture. Soft tissues: Unremarkable. Sinuses: Unremarkable as visualized. No acute sinusitis. Mastoid air cells: Unremarkable as visualized. No mastoid effusion. IMPRESSION: No evidence of acute intracranial pathology. Electronically signed by: Philomena Hughes MD 05/26/23 02:53 AM Head CTA 05/26/23 00:08 Exam(s): CTA HEAD With Contrast IV Amt: 118 ML EXAM: CT Angiography Head With Intravenous Contrast CLINICAL HISTORY: Reason for exam: neuro deficit, acute stroke suspected. TECHNIQUE: Axial computed tomographic angiography images of the head with intravenous contrast. Automated exposure control was utilized for the study. A dose lowering technique was utilized adhering to the principles of ALARA. MIP reconstructed images were created and reviewed. CONTRAST: Patient received 118 ML of IV contrast COMPARISON: No relevant prior studies available. FINDINGS: The dural venous sinuses are patent. Right internal carotid artery: No acute findings. Intracranial segment is patent with no significant stenosis. No aneurysm. Right anterior cerebral artery: Unremarkable. No occlusion or significant stenosis. No aneurysm. Right middle cerebral artery: Ectatic M1 segment. No aneurysm. Right posterior cerebral artery: Unremarkable. No occlusion or significant stenosis. No aneurysm. Right vertebral artery: Unremarkable as visualized. Left internal carotid artery: No acute findings. Intracranial segment is patent with no significant stenosis. No aneurysm. Left anterior cerebral artery: Ectatic left A2 segment. No aneurysm. Left middle cerebral artery: Ectatic M1 segment. No aneurysm. Left posterior cerebral artery: Unremarkable. No occlusion or significant stenosis. No aneurysm. Left vertebral artery: Unremarkable as visualized. Basilar artery: Vertebral basilar dolichoectasia. No occlusion or significant stenosis. No aneurysm. IMPRESSION: Negative CT angiogram of the head. Electronically signed by: Philomena Hughes MD 05/26/23 02:51 AM Neck CTA 05/26/23 00:08 Exam(s): CTA NECK With Contrast IV Amt: 118 ML EXAM: CT Angiography Neck With Intravenous Contrast CLINICAL HISTORY: Reason for exam: neuro deficit, acute stroke suspected. TECHNIQUE: Routine carotid CT angiography protocol was performed with intravenous contrast. NASCET criteria using the distal ICAs for comparison were used for evaluation of stenoses. Automated exposure control was utilized for the study. A dose lowering technique was utilized adhering to the principles of ALARA. MIP reconstructed images were created and reviewed. CONTRAST: Patient received 118 ML of IV contrast COMPARISON: None. FINDINGS: VASCULATURE: Right common carotid artery: Unremarkable. No occlusion or significant stenosis. No dissection. Right internal carotid artery: Unremarkable. Extracranial segment is patent with no occlusion or significant stenosis. No dissection. Right external carotid artery: Unremarkable. No occlusion. Right vertebral artery: Unremarkable. No occlusion or significant stenosis. No dissection. Left common carotid artery: Unremarkable. No occlusion or significant stenosis. No dissection. Left internal carotid artery: Unremarkable. Extracranial segment is patent with no occlusion or significant stenosis. No dissection. Left external carotid artery: Unremarkable. No occlusion. Left vertebral artery: Unremarkable. No occlusion or significant stenosis. No dissection. NECK: Bones/joints: Severe spinal canal stenosis at C6-7. No acute fracture. Soft tissues: Unremarkable. Lung apices: Clear. CAROTID STENOSIS REFERENCE USING NASCET CRITERIA: % ICA stenosis = (1 - narrowest ICA diameter/diameter of distal cervical ICA) x 100. Mild - <50% stenosis. Moderate - 50-69% stenosis. Severe - 70-94% stenosis. Near occlusion - 95-99% stenosis. Occluded - 100% stenosis. IMPRESSION: Negative CTA neck. Electronically signed by: Philomena Hughes MD 05/26/23 03:06 AM Diagnostic Findings EKG as per my interpretation :Rate 65, LAD, LAFB, T wave flattening inferior leads
[2023-05-26] MEDS ORDERED: PHARMACIST DISCHARGE MED REC CONSULT PRN (05:57)
[2023-05-26] MEDS ORDERED: LORazepam 0.5 MG TAB PO PRN (05:59)
[2023-05-26] MEDS ORDERED: ACETAMINOPHEN 325 MG TAB PO PRN (05:59)
[2023-05-26] MEDS ORDERED: traMADol HCL 50 MG TABLET PO PRN (05:59)
[2023-05-26] MEDS ORDERED: PROMETHAZINE HCL 12.5 MG in SODIUM CHLORIDE 0.9% 50 ML IV PRN (05:59)
[2023-05-26] MEDS: POTASSIUM CHLORIDE 20 MEQ in LACTATED RINGER'S 1,000 ML IV ONE (06:02)
--- NOTE | 2023-05-26 07:35 | XRay Report ---
XR chest 1V portable CLINICAL HISTORY: neuro deficit, acute stroke suspected COMPARISON STUDY: Chest radiograph and chest CT April 17, 2023. FINDINGS: There are median sternotomy wires. The postoperative appearance of the thoracic aorta is un changed with tortuosity. There is no evidence for pulmonary edema or pneumonia. No pneumothorax or pl eural effusion. IMPRESSION: No acute cardiopulmonary findings. Stable postoperative findings. ACT 112: Negative or not required by law. Electronically signed by: Romero Harris M.D. 05/26/2023 7:32 AM
[2023-05-26 07:59] LABS: Amphetamines+Metham, Urine Neg (Neg); Barbiturates, Urine Neg (Neg); Benzodiazepine, Urine Neg (Neg); Cocaine, Urine Neg (Neg); MDMA (Ecstacy), Urine Neg (Neg); Marijuana, Urine Pos (Neg); Methadone, Urine Neg (Neg); Opiate, Urine Neg (Neg); Phencyclidine, Urine Neg (Neg)
--- NOTE | 2023-05-26 09:00 | Electrocardiogram Report ---
Test Reason : Blood Pressure : / mmHG Vent. Rate : 066 BPM Atrial Rate : 066 BPM P-R Int : 206 ms QRS Dur : 108 ms QT Int : 432 ms P-R-T Axes : 043 -28 001 degrees QTc Int : 452 ms Normal sinus rhythm Poor R wave progression, consider anterior ID vs. lead placement vs. LVH Abnormal ECG When compared with ECG of 17-APR-2023 03:27, Nonspecific T wave abnormality no longer evident in Lateral leads Confirmed by Dhiraj Jasmine ([id number]) on 05/26/2023 8:59:45 AM Referred By: REFERRED SELF Confirmed By:Dhiraj Jasmine
--- NOTE | 2023-05-26 09:43 | Magnetic Resonance Report ---
MRI OF THE BRAIN WITHOUT CONTRAST CLINICAL HISTORY: Left eye ptosis. Double vision. COMPARISON STUDY: MRA of the head November 21, 2021. Head CT and CTA of the head May 26, 2023. TECHNIQUE: Utilizing a 1.5 Jeanine magnet and dedicated coil, multiplanar, multiecho imaging of the bra in was performed without IV contrast. FINDINGS: There is a 5 mm focus of restricted diffusion within the left occipital lobe on diffusion-w eighted sequence image 12 of 25. This is hypointense on the ADC map and there is a small correspondin g T2 hyperintense focus. There is no mass effect or evidence for hemorrhagic conversion. In addition, there is a 5 mm focus of restricted diffusion within the left cerebellar hemisphere on image 7. Poss ible additional punctate acute to subacute infarct within the posterior left temporal lobe on image 1 0. The ventricular system is unremarkable. Basal cisterns are patent. There are no extra-axial collec tions. Flow-voids for the major intracranial vessels are present. Several old infarcts within the sarah ateral cerebellar hemispheres are present. There are scattered supratentorial subcortical white matte r T2 hyperintense foci. Calvarial signal is normal. Right ethmoid sinuses are partially opacified. Th ere is no mastoid fluid. No intracranial masses are identified on unenhanced exam. IMPRESSION: 1. Small acute to subacute infarcts within the left cerebellar hemisphere and left occipital lobe, me asuring 5 mm. Possible punctate acute to subacute infarct within the posterior left temporal lobe. No mass effect. No evidence for hemorrhagic conversion. 2. 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 3. No acute intracranial hemorrhage. ACT 112: Negative or not required by law. Electronically signed by: Romero Harris M.D. 05/26/2023 9:41 AM
--- OUTSIDE RECORDS SUMMARY | 2023-05-26 12:09 | External Medical Summary ---
Author Name Unknown Address Unknown Organization K01[place] [place] [address] [place] [id number] Laboratory Report Ordering Provider Test Date Status ERLIN PAEZ 04/23/2023 14:38:20 Final Observation Date Value Abnormality Reference (Units ) Status HbA1C 04/23/2023 14:38:20 5.7 Above high normal 4. 0-5.6 (%) Final The use of HbA1c to monitor glycemic status is based on normal hemoglobin and HbA composition. This test should not be used in patients with abnormal hemoglobin that affects the half life of the red blood cell or the in vivo glycation rates. Glucose, estimated average 04/23/2023 14:38:20 117 <126 (mg/dL) Final Performing Location [facility] [place] [address] [place] [id number]
--- OUTSIDE RECORDS SUMMARY | 2023-05-26 12:09 | External Medical Summary | Summary of Care ---
Author Name Unknown Organization [facility] Address [address] [place] [address] Phone [phone] Care Team Providers Care Microbial Specialist Name Role Phone Neri Yeung MD Primary Care Provider [phone]- [phone] Reason for Visit * Reason Comments Depression Encounter Details Date Type Department Care Team (Late st Contact Info) Description 05/10/2023 2:30 PM EST [facility] [address], [place] [id number] Norma Gottlieb LCSW [address] [place] [address] Current moderate episode of major depressive disorder without prior episode (HCC)* Allergies No known active allergiesdocumented as of this encounter (statuses as of 05/10/2023) Medications Medication Sig Dispensed Refills Start Date End Date Status Diclofenac Sodium 1 % Transdermal Gel (Voltaren)Indicatio ns:Chronic left-sided thoracic back pain Place 2 g topically on the skin 2 times a day. To affected area as directed. 100 g 5 01/07/2020 Active traZODone HCl 50 MG Oral Tablet (Desyrel)Indication s:Persistent insomnia Take 1 Tab by mouth at bedtime. 30 Tab 5 12/10/2020 Active Additional Information Patient not taking.Reported on 10/20/2022 Warfarin Sodium 5 MG Oral Tablet (Coumadin) TAKE ONE-HALF TO ONE TABLET BY MOUTH DAILY OR DIRECTED BY COUMADIN CLINIC 90 Tablet 3 05/25/2022 Active amLODIPine Besylate 10 MG Oral Tablet (Norvasc)Indication s:HTN, goal below 130/80 Take 1 Tablet by mouth in the morning. 90 Tablet 3 04/23/2023 Active Aspirin 81 MG Oral Tablet Chewable (Aspirin Low Dose) Take 1 Tablet by mouth in the morning. 91 Tablet 3 04/23/2023 Active Atorvastatin Calcium 20 MG Oral Tablet (Lipitor)Indication s:Dyslipidemia,Hist ory of thoracic aortic aneurysm repair Take 1 Tablet by mouth in the morning. 90 Tablet 3 04/23/2023 Active Lisinopril 40 MG Oral TabletIndications:H TN, goal below 130/80 Take 1 Tablet by mouth in the morning. 90 Tablet 3 04/23/2023 Active Metoprolol Succinate ER 200 MG Oral Tablet Extended Release 24 HourIndications:HTN , goal below 130/80 Take 1 Tablet by mouth in the morning. 90 Tablet 3 04/23/2023 Active Pantoprazole Sodium 40 MG Oral Tablet Delayed Release (Protonix) Take 1 Tablet by mouth in the morning. 90 Tablet 3 04/23/2023 Active LORazepam 0.5 MG Oral Tablet (Ativan)Indications :Anxiety Take 1 Tablet by mouth 3 times a day as needed for Anxiety. 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 History of thoracic aortic aneurysm repair 05/26 AAA (abdominal aortic aneurysm) without rupture 05/26/2013 HTN, goal below 130/80 05/17/2011 HCV antibody positive 04/17/2011 S/P aortic valve replacement 03/15/2011 Benign neoplasm of colon 03/02/2011 Overview: denomas-repeat colonoscopy in 3 yrs Dissection of thoracic aorta 02/15/2011 Aortic valve disorder 02/13/2011 Anticoagulation management encounter 02/13/2011 skilled nursing current use of anticoagulant therapy 1 04/16/2010 Overview: ICD-10 update of inactive term documented as of this encounter (statuses as of 05/10/2023) Resolved Problems Problem Noted Date Diagnosed Date Resolved Date Fracture of phalanx of finger 06/17/2015 04/02/2017 Dislocation, finger 05/19/2015 04/02/19 18 Thrombus 12/22/2014 11/14/2021 Iliac artery aneurysm, left 11/26/2014 04/05/2020 GI bleeding 02/25/2011 04/02/2017 Marfan's syndrome 01/19/2011 02/24/2011 Other specified drug dependence, in remission 01/20/20 11 07/13/2016 Thoracic aortic aneurysm 01/17/2011 Overview: Dilated aortic root HTN, goal below 130/80 01/17/201105/16 documented as of this encounter (statuses as of 05/10/2023) Immunizations Name Administration Dates Next Due COVID-19 mRNA, LNP-s, No Pre serve, 2-Dose Series (Moderna) 10/05/2020,09/03/2020 Seasonal Influenza, PF, 6 M & above, IM , (FluLaval or Fluzone) 12/10/2020,01/07/2020,12/03/2017,2017 Seasonal Influenza, Quadriva lent, No Preserve, IM 11/15/2015 Seasonal Influenza, Split, I IV3, With Preserve, Inj 11/25/2014,01/27/2014,04/01/2013,2010 TD, Preservative Free 01/07/2020 TDAP (age 11 and older)(Adacel) 10/03/2009 documented as of this encounter Social History Tobacco Use Types Packs/Day Years Used Date Smoking Tobacco: Former Cigarettes 0.3 15 0 04/05/2005 - 04/05/2020 Cigars 04/05/2005 - 0 04/05/2020 Smokeless Tobacco: Former Alcohol Use Standard Drinks/Week Comments Yes 0 (1 standard drink = 0.6 oz pur e alcohol) on occasion PHQ-2 Answer Date Recorded PHQ-2 Score 7 01/07/2018 Hunger Vital Sign Answer Date Recorded Within the past 12 months, y ou worried that your food would run out before you got the money to buy more. Never true 12/29/19 23 Within the past 12 months, t he food you bought just didn't last and you didn't have money to get more. Never true 12/28/2022 Sex and Gender Information Value Date Recorded Sex Assigned at Male 08/20/2018 3:26 PM EDT Gender Identity Male 08/20/2018 3:26 PM EDT Sexual Orientation Not on file Job Start Date Occupation Industry Not on file Not on file Not on file documented as of this encounter Functional Status Functional Status Response Date of Assess ment Are you deaf or do you have serious difficulty h earing? No 05/10/2020 Are you blind or do you have serious difficulty seeing, even when wearing glasses? No 05/10/2020 Do you have serious difficul ty walking or climbing stairs? (5 years old or older) No 05/12/2020 Do you have difficulty dress ing or bathing? (5 years old or older) No 05/10/2020 Because of a physical, menta l, or emotional condition, do you have difficulty doing errands alone such as visiting a doctor s office or shopping? (15 years old or older) No 05/11/19 Cognitive Status Response Date of Assessm ent Because of a physical, menta l, or emotional condition, do you have serious difficulty concentrating, remembering, or making decisions? (5 years old or older) No 05/10/2020 documented as of this encounter Progress Notes * Norma Gottlieb, BOW MAKER - 05/10/2023 2:30 PM EST Patient location: HOME. I was not in a hospital or clinic location. After connecting through [employer], patient was verified with two unique identifiers. Patient (or authorized legal underwriting service representative) was then informed that this was a Telemedicine visit and being conducted confidentially over secure lines. Methods to assure confidentiality were taken. Patient acknowledged consent and understanding of privacy and security of the Telemedicine visit. The patient agreed to participate. My office door was closed. No one else was in the room with me. I informed the patient that I have reviewed their record in [facility] and presented the opportunity for them to ask any questions regarding the visit today. The patient agreed to participate. Provider reviewed elements of Outpatient Services Description including limits of confidentiality, how to contact the department, risks and benefits of treatment and consent for treatment. Start Time: 2:54 PM Stop Time: 3:30 PM Total direct iqps-iv-teua time: 36 minutes BEHAVIORAL MEDICINE PROGRESS NOTE Psychology, [address] [address] TYPE OF VISIT: Individual DIAGNOSIS: depression REASON FOR FOLLOW-UP: Individual therapy SESSION FOCUS: The main themes of the session were: exploration of relationships with friends; expression of stressful experiences; management and coping with daily life; and coping with day to day organizational difficulties. NOTES: Pt reported he was late for the session due to sleep difficulties. Pt reported he was up for most of the night then slept during the day. Pt reported having a difficulty time staying on top of financial concerns such as doctors bills and money owed for legal fees. Pt continues to express deep angerwith his closest friend. Pt expressed anger toward his friend due to his friends betrayal. Goal: Improved self-management of depression INTERVENTION: The main therapeutic interventions consisted of: supportive techniques; an emphasis on self-expression; an emphasis on bxft-pgf-dim functioning; and an emphasis on coping with current life difficulties. Outpatient Adult Therapy Treatment Plan Treatment plan was developed on 12/12/22, treatment will continue to focus on goals below; Treatment update will occur when clinically indicated or by 06/09/2023. Patient's goals captured in patient's words: "to not feel burdened to vent and have some clarity" Expected family or significant other involvement: Offer Support Type of Service:Individual Patients Strengths and Facilitating Factors to care: Seeking help, Has hobbies, and Cooperative Treatment Barriers: none identified Crisis Planning: What I can do if I ever experience a crisis (much worse symptoms, severe distress or thoughts of self-harm): walk away from the situation and breathe People I can call in the event of a crisis: nobody Additional resources I can utilize if the previous steps are ineffective (e.g: ED, hotlines): Suicide and Crisis Lifeline - 988 Signature Obtained on Treatment Plan Patient/ Family Received Copy of Treatment Plan Duration of Treatment Frequency of Treatment Patient unable to sign Treatment Plan acknowledgement document. Signature will be obtained at the time or before [facility] bulletin extension expires. Patient has access to [employer] 16-20 sessions every other week Patient Identified Needs/Goals Interventions Objective/ Discharge Criteria Problem/Need 1: Depression Cognitive Behavioral Therapy (CBT), which includes psychoeducation, cognitive restructuring, relaxation/diaphragmatic breathing, problem-solving, and behavioral activation and Motivational interviewing PHQ<5 Please choose a method to track patient's improvement based on clinical assessment: PHQ-9 Adult Data Discharge Discussed with patient: Patient continues to need treatment Collaboration of Care: Yes, provider within [facility], information is shared automatically in medical record Is this the patients' initial treatment plan? No PATIENT EDUCATION: Verbal MENTAL STATUS AND BEHAVIORAL OBSERVATIONS: Appearance: within normal limits Behavior: within normal limits Speech: normal pitch, rate and volume Affect: Congruent with content of conversation Thought Process: within normal limits and goal directed Thought Content: within normal limits Intellectual Function: within normal limits Sensorium: alert and oriented to person, place, time and situation Cognition: grossly intact Insight/Judgment: good Suicide/Homicidal Assessment Validated Screening and Assessment Measures - No change in risk from last session (see note dated 04/26/23 for further details) FOLLOW-UP PLAN: Return: 2 weeks Action Plan: 1. Continue Cognitive Behavioral Therapy and Motivational Interviewing 2. Continue medication management Treatment plan reviewed with the patient. Patient voices understanding and concurs with plan. Norma Gottlieb LCSW Division of Psychiatry & Behavioral Medicine [facility] [phone] documented in this encounter Plan of Treatment Upcoming Encounters Date Type Department Care Team (Late st Contact Info) Description 05/21/2023 9:30 AM EDT Imaging Vascular Lab, [facility] 2nd [facility], [address] [address] 05/24/2023 2:30 PM EDT Telemedicine Psychology, [place] [address] [place] [address] Norma Gottlieb LCSW [address] [place] [address] 06/05/2023 6:10 PM EDT Anticoagulation Pharmacy, [place] [address] [place] [address] [facility] [address] [place] [address] 10/22/2023 1:40 PM EDT Office Visit Family [facility], [place] [address] [place] [facility] [place] [address] Neri Yeung MD [address] [place] [address] 11/29/2023 2:00 PM EDT Office Visit Ophthalmology, [facility] [address] [facility] [place] [address] Kenneth Jalloh, DO [address] [place] [id number] Scheduled Procedures Name Priority Associated Diagnoses Date/Ti me COLONOSCOPY FLEXIBLE PROXIMA L DIAGNOSTIC Recall Screening for colon cancer Health Maintenance Due Date Last Done Comments Albumin/Creatinine Ratio 1988 Hepatitis B (1 of 3 - 19+ 3-dose series) 1989 Depression Screening 04/02/2018 04/02/2017 Zoster Vaccines (1 of 2) 2020 COVID-19 Vaccine (3 - 2022- season) 2022 10/05/2020, 09/03/2020 Influenza Vaccine (FLU shot) (#1) 2022 12/10/2020, 01/07/2020, 12/03/2017, Additional history exists GFR 04/23/2024 04/23/2023, 04/0 03/2021, 06/18/2020, Additional history exists COLONOSCOPY-EVERY 5 YRS AGES 18-100 01/07/2026 01/07/2021, 01/07/2021, 03/02/2011 Diabetes Screening 04/23/2026 04/23/2023, 0 04/23/2023, 06/03/2021, Additional history exists Lipid Panel 04/23/2028 04/23/2023, 04/0 03/2021, 01/07/2020, Additional history exists DTaP,Tdap,and Td Vaccines (3 - Td or Tdap) 01/06/2030 01/07/2020, 10/03/2009 COLONOSCOPY-EVERY 3 YRS AGES 18-100 Discontinued 01/07/2021, 01/07/2021, 03/02/2011 GARDASIL-HPV IMMUNIZATION SERIES Aged Out No longer eligible based on patient's age to complete this topic MENINGOCOCCAL (MENACTRA/MENVEO) Aged Out No longer eligible based on patient's age to complete this topic Pneumococcal Vaccine: Pediatrics (0 to 5 Years) and At-Risk Patients (6 to 64 Years) Aged Out No longer eligible based on patient's age to complete this topic documented as of this encounter Medical Devices Implanted Type Area Park Attendant Device Identifier Shelf Expiration Date Model / Serial / Lot Valve Conduit [id number] - [id number] Implanted:Qty: 1 on 02/12/2011 [place] [facility] [place] - Non Human N/A: Heart ST HARMONY : CARDIOVASCULAR 08/14/2011 [id number]- 514 / [id number] / Graft Gelweave 8x15 [id number] - [id number] Implanted:Qty: 1 on 02/12/2011 [place] [facility] Right: Upper Arm [employer] : CARDIO SYS 08/03/2015 [id number] / / [id number] A Sut Steel 6 M654g - [id number] Implanted:Qty: 6 on 02/16/2011 at [place] [facility] N/A: Chest DO NOT USE 10/03/2015 [id number] / / [id number] [place] Ptfe 6x6in X5 - [id number] Implanted:Qty: 1 on 05/11/2020 by Philipp Valente MD at [place] [facility] N/A: Aorta CR BARD : PERIPHERAL VASCULAR 04/01/2024 [id number] / / [id number] 32 Mm X 30 Cm Gelweave Gelatin Impregnated Woven Vascular Prosthesis Implanted:Qty: 1 on 05/11/2020 by Philipp Valente MD at [place] [facility] N/A: Aorta [employer] : VASCUTEK [id number] 08/02/2022 [id number] / [id number] / [id number] documented as of this encounter Visit Diagnoses Diagnosis Current moderate episode of major depressive disorder without prior episode (HCC)- Primary documented in this encounter Advance Directives Latest Code Status on File Code Status Date Activated Date Inactivated Comments Full Code 05/11/2020 2:33 PM 05/18/2020 3:53 PM This o rder reflects the patients wishes and were consensually agreed upon. Code Status History Code Status Date Activated Date Inactivated Comments Full Code 05/10/2020 9:18 AM 05/11/2020 2:32 PM This or ilya reflects the patients wishes and were consensually agreed upon. Full Code 12/22/2014 5:21 PM 12/29/2014 10:54 PM Th is order reflects the patients wishes and were consensually agreed upon. Question Answer Comments Discussion of Advance Directives occurred with: Patient Does the patient have a Living Will? No Does the patient have Health Care Power of Processor Solid Propellant? No Full Code 02/25/2011 1:12 AM 02/25/2011 6:33 PM Thi s order reflects the patients wishes and were consensually agreed upon. Question Answer Comments Discussion of Advance Directives occurred with: Patient Does the patient have a Living Will? No Does the patient have Health Care Power of Processor Solid Propellant? No Full Code 02/12/2011 9:04 PM 02/21/2011 9:44 AM Thi s order reflects the patients wishes and were consensually agreed upon. Care Teams Microbial Specialist Relationship Specialty Start Date End Date Neri Yeung MD [address] [place] [address] PCP - General Family Medicine 07/08/21 documented as of this encounter
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
--- OUTSIDE RECORDS SUMMARY | 2023-05-26 12:09 | External Medical Summary | Summary of Care ---
Author Name Unknown Organization [facility] Address [address] [place] [address] Phone [phone] Care Team Providers Care Human Resources Compensation Analyst Name Role Phone Neri Yeung MD Primary Care Provider [phone]- [phone] Reason for Visit * Reason Comments Outpatient Testing Encounter Details Date Type Department Care Team (Late st Contact Info) Description 04/23/2023 3:10 PM EST Laboratory Laboratory, [place] [address] [place] [address] [place], [facility] [address] [place] [address] Lipid screening; HTN, goal below 130/80; Encounter for long-term (current) use of medications; Peripheral polyneuropathy; S/P aortic valve replacement Allergies No known active allergiesdocumented as of this encounter (statuses as of 04/23/2023) Medications Medication Sig Dispensed Refills Start Date [...] 81 MG Oral Tablet Chewable (Aspirin Low Dose)Indications:Di ssection of thoracic aorta (HCC) Take 1 Tablet by mouth in the [...] the morning. 90 Tablet 3 04/23/2023 Active documented as of this encounter (statuses as of 04/23/2023) Active Problems Problem Noted Date Diagnosed Date [...] valve disorder 02/13/2011 Anticoagulation management encounter 02/13/2011 senior living current use of anticoagulant therapy 1 04/16/2010 Overview: ICD-10 update of inactive term documented as of this encounter (statuses as of 04/23/2023) Resolved Problems Problem Noted Date Diagnosed Date [...] as of this encounter (statuses as of 04/23/2023) Immunizations Name Administration Dates Next Due COVID-19 [...] (15 years old or older) No 05/11/19 21 Cognitive Status Response Date of Assessm ent Because of a physical, menta l, or emotional condition, do you have serious difficulty concentrating, remembering, or making decisions? (5 years old or older) No 05/10/2020 documented as of this encounter Plan of Treatment Upcoming Encounters Date Type Department Care Team (Late st Contact Info) Description 04/24/2023 7:00 AM EST Anticoagulation Pharmacy, [place] [address] [place] [address] [facility] [address] [place] [address] 04/26/2023 2:30 PM EST Telemedicine Psychology, [place] [address] [place] [address] Norma Gottlieb, YOUTH AGENT [address] [place] [address] 05/07/2023 6:10 PM EST Anticoagulation Pharmacy, [place] [address] [place] [address] [facility] [address] [place] [address] 05/21/2023 9:30 AM EDT Imaging Vascular Lab, [facility] [facility] [address] [facility] [place] [address] 10/22/2023 1:40 PM EDT Office Visit Family Practice, [place] [address] [place] [address] Neri Yeung MD [address] [facility] [place] [address] 11/29/2023 2:00 PM EDT Office Visit Ophthalmology, [facility] [address] [facility] [place] [address] Kenneth Jalloh, DO [address] [facility] [address] [place] [address] Pending Results Name Type Priority Associated Diagnoses Date /Time LIPID PANEL WITH DIRECT LDL IF TG IS HIGH Lab Routine Lipid screening 04/23/2023 2:38 PM EST COMPREHENSIVE METABOLIC PANEL Lab Routine HTN, goal below 130/80 04/23/2023 2:38 PM EST VITAMIN B12 Lab Routine Encounter for long-term (current) use of medications 04/23/2023 2:38 PM EST MAGNESIUM Lab Routine Encounter for long-term (current) use of medications 04/23/2023 2:38 PM EST TSH WITH FREE T4 IF INDICATED Lab Routine Peripheral polyneuropathy 04/23/2023 2:38 PM EST HEMOGLOBIN A1C Lab Routine Peripheral polyneuropathy 04/23/2023 2:38 PM EST PT INR Lab Routine S/P aortic valve replacement 04/23/2023 2:38 PM EST Scheduled Procedures Name Priority Associated Diagnoses Date/Ti me COLONOSCOPY FLEXIBLE PROXIMA L DIAGNOSTIC Recall Screening for colon cancer Health Maintenance Due Date Last Done Comments Albumin/Creatinine Ratio 1988 Hepatitis B (1 of 3 - 19+ 3-dose series) 1989 Depression Screening 04/02/2018 04/02/2017 Zoster Vaccines (1 of 2) 2020 GFR 06/03/2022 06/03/2021, 06/03, 05/18/2020, Additional history exists COVID-19 Vaccine (3 - 2022-24 season) 2022 10/05/2020, 09/03/2020 Influenza Vaccine (FLU shot) (#1) 2022 12/10/2020, 01/07/2020, 12/03/2017, Additional history exists Diabetes Screening 06/03/2024 06/03/2021, 0 06/18/2020, 05/18/2020, Additional history exists COLONOSCOPY-EVERY 5 YRS AGES 18-100 01/07/2026 01/07/2021, 01/07/2021, 03/02/2011 Lipid Panel 06/03/2026 06/03/2021, 11/06/2019, 12/23/2014, Additional history exists DTaP,Tdap,and Td Vaccines (3 [...] this encounter Medical Devices Implanted Type Area Weather Strip Mechanic Device Identifier Shelf Expiration Date Model / Serial / Lot Valve Conduit [id number] - [id number] Implanted:Qty: 1 on 02/12/2011 at [place] [facility] Tissue - Non Human N/A: Heart ST HARMONY : CARDIOVASCULAR 08/14/2011 [id number]- [id number] / [id number] / Graft Gelweave 8x15 [id number] - [id number] Implanted:Qty: 1 on 02/12/2011 at OR [facility] Right: Upper Arm [employer] : CARDIO SYS 08/03/2015 [id number] / / [id number] A Sut Steel 6 M654g - [id number] Implanted:Qty: 6 on 02/16/2011 at OR [facility] N/A: Chest DO NOT USE 10/03/2015 [id number] / / [id number] [place] Ptfe 6x6in X5 - [id number] Implanted:Qty: 1 on 05/11/2020 by Philipp Valente MD at OR [facility] N/A: Aorta CR BARD : PERIPHERAL VASCULAR 04/01/2024 [id number] / / [id number] 32 Mm X 30 Cm Gelweave Gelatin Impregnated Woven Vascular Prosthesis Implanted:Qty: 1 on 05/11/2020 by Philipp Valente MD at OR [facility] N/A: Aorta [employer] : VASCUTEK [id number] 08/02/2022 [id number] / [id number] / [id number] documented as of this encounter Visit Diagnoses Diagnosis Lipid screening Screening for lipoid disorders HTN, goal below 130/80 Unspecified essential hypertension Encounter for long-term (current) use of medications Encounter for long-term (current) use of other medications Peripheral polyneuropathy Unspecified hereditary and idiopathic peripheral neuropathy S/P aortic valve replacement Heart valve replaced by other means documented in this encounter Advance Directives Latest [...] the patient have Health Care Power of Pathology Laboratory Aide? No Full Code 02/25/2011 1:12 AM 02/25/2011 6:33 PM Thi s order reflects the patients wishes and were consensually agreed upon. Question Answer Comments Discussion of Advance Directives occurred with: Patient Does the patient have a Living Will? No Does the patient have Health Care Power of Pathology Laboratory Aide? No Full Code 02/12/2011 9:04 PM 02/21/2011 9:44 AM Thi s order reflects the patients wishes and were consensually agreed upon. Care Teams Human Resources Compensation Analyst Relationship Specialty Start Date End Date Neri Yeung MD [address] [place] [address] PCP - General Family Medicine 07/08/21 documented as of this encounter
--- OUTSIDE RECORDS SUMMARY | 2023-05-26 12:09 | External Medical Summary | Summary of Care ---
Author Name Unknown Organization [facility] Address [address] [place] [address] Phone [phone] Care Team Providers Care Forestry Tree Pruner Name Role Phone Neri Yeung MD Primary Care Provider [phone]- [phone] Reason for Visit * Reason Comments Status Check Return in 6 months Encounter Details Date Type Department Care Team (Latest Contact Info) Description 04/23/2023 1:00 PM EST Office Visit [facility] [address] [place] [address] Neri Yeung MD [address] [place] [address] S/P aortic valve replacement*; History of thoracic aortic aneurysm repair; HTN, goal below 130/80; Dyslipidemia; Peripheral polyneuropathy; Anxiety; residential current use of anticoagulant therapy Allergies No known active allergiesdocumented as of this encounter (statuses as of 04/23/2023) Medications Medication Sig Dispensed Refills Start Date End Date Status Diclofenac Sodium 1 % Transdermal Gel (Voltaren)Indicat ions:Chronic left-sided thoracic back pain Place 2 g topically on the skin 2 times a day. To affected area as directed. 100 g 5 01/07/2020 Active traZODone HCl 50 MG Oral Tablet (Desyrel)Indicati ons:Persistent insomnia Take 1 Tab by mouth at bedtime. 30 Tab 5 12/10/2020 Active Additional Information Patient not taking.Reported on 10/20/2022 Warfarin Sodium 5 MG Oral Tablet (Coumadin) TAKE ONE-HALF TO ONE TABLET BY MOUTH DAILY OR DIRECTED BY COUMADIN CLINIC 90 Tablet 3 05/25/2022 Active amLODIPine Besylate 10 MG Oral Tablet (Norvasc)Indicati ons:HTN, goal below 130/80 Take 1 Tablet by mouth in the morning. 90 Tablet 3 04/23/2023 Active Aspirin 81 MG Oral Tablet Chewable (Aspirin Low Dose) Take 1 Tablet by mouth in the morning. 91 Tablet 3 04/23/2023 Active Atorvastatin Calcium 20 MG Oral Tablet (Lipitor)Indicati ons:Dyslipidemia, History of thoracic aortic aneurysm repair Take 1 Tablet by mouth in the morning. 90 Tablet 3 04/23/2023 Active Lisinopril 40 MG Oral TabletIndications :HTN, goal below 130/80 Take 1 Tablet by mouth in the morning. 90 Tablet 3 04/23/2023 Active Metoprolol Succinate ER 200 MG Oral Tablet Extended Release 24 HourIndications:H TN, goal below 130/80 Take 1 Tablet by mouth in the morning. 90 Tablet 3 04/23/2023 Active Pantoprazole Sodium 40 MG Oral Tablet Delayed Release (Protonix) Take 1 Tablet by mouth in the morning. 90 Tablet 3 04/23/2023 Active LORazepam 0.5 MG Oral Tablet (Ativan)Indicatio ns:Anxiety Take 1 Tablet by mouth 3 times a day as needed for Anxiety. 30 Tablet 0 04/23/2023 Active Metoprolol Succinate ER 200 MG Oral Tablet Extended Release 24 Hour TAKE 1 TABLET BY MOUTH EVERY DAY 90 Tablet 3 08/22/2022 4 Discontinue d(Refill) Aspirin Low Dose 81 MG Oral Tablet Chewable (aspirin)Indicati ons:Dissection of thoracic aorta (HCC) TAKE 1 TABLET BY MOUTH EVERY DAY 91 Tablet 3 11/30/2022 4 Discontinue d(Refill) Atorvastatin Calcium 20 MG Oral Tablet (Lipitor)Indicati ons:Dyslipidemia, History of thoracic aortic aneurysm repair Take 1 Tablet by mouth in the morning. 90 Tablet 3 03/01/2023 4 Discontinue d(Refill) Pantoprazole Sodium 40 MG Oral Tablet Delayed Release (Protonix) Take 1 Tablet by mouth in the morning. 90 Tablet 2 03/01/2023 4 Discontinue d(Refill) amLODIPine Besylate 10 MG Oral Tablet (Norvasc)Indicati ons:HTN, goal below 130/80 Take 1 Tablet by mouth in the morning. 90 Tablet 1 03/01/2023 4 Discontinue d(Refill) Lisinopril 40 MG Oral Tablet Take 1 Tablet by mouth in the morning. 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 1 04/16/2010 [...] 04/05/2005 - 0 04/05/2020 Smokeless Tobacco: Former Tobacco Cessation:Counseling Given: Not Answered Alcohol Use Standard Drinks/Week Comments Yes 0 [...] on file documented as of this encounter Last Filed Vital Signs Vital Sign Reading Time Taken Comments Blood Pressure 144/82 04/23/2023 1:18 PM EST Pulse 86 04/23/2023 1:11 PM EST Temperature 36.6 C (97.9 F) 04/23/2023 1:11 PM ES T Respiratory Rate 18 04/23/2023 1:11 PM EST Oxygen Saturation 98% 04/23/2023 1:11 PM EST Inhaled Oxygen Concentration - - Weight 95.8 kg (211 lb 3.2 oz) 04/23/2023 1:11 P M EST Height 188 cm (6' 2") 04/23/2023 1:11 PM EST Body Mass Index 27.12 04/23/2023 1:11 PM EST documented in this encounter Functional Status Functional Status Response [...] as of this encounter Progress Notes * Neri Yeung MD - 04/23/2023 1:43 PM EST Subjective: Juan Hamilton is a 53 year old male here today for Chief Complaint Patient presents with Status Check Return in 6 months Patient presents for routine six-month return. He was admitted to the hospital a year ago with chest pain. Last week, he returned to the emergency department for an episode of chest pain. No concerning findings. Patient states he has lost his transportation and has been unable to make his visits with the [facility] clinic for his PT INR. His INR was found to be 5.5 in the emergency department. He was told to hold his warfarin for 4 days. Patient states he has been back on it for 3 days. He is agreeable to updating his PT INR today. He is working to get transportation arranged again. His chest pain is better. He has seen improvement with both nitroglycerin and lorazepam in the past when he has had similar pains. He is concerned that his episodes triggers significant anxiety and he can not get things settled down and then needs to go to the ER for evaluation given the seriousness of many of his diagnoses. He does continue to follow with psychology. We discussed potentially considering visit with psychiatry but are holding on that at the current time. Patient was to have had an EGD for evaluation of his abdominal symptoms. Unfortunately, that was canceled as he did not have transportation other than the bus to get to the appointment. He was told he could reschedule it if he could find adequate transportation to and from the visit. States his symptoms have not worsened. He does complain of a burning sensation on the bottom of the left foot. He has not sure of the cause. He is agreeable to having labs to evaluate it further. There was no injury that he was aware of. He does report that he has been out of many of his medications and does have difficulty with compliance. Past Medical History: Diagnosis Date Benign neoplasm of colon 03/02/11 denomas-repeat colonoscopy in 3 yrs HTN, goal below 130/80 01/17/2011 Iliac artery aneurysm, left (HCC) 11/26/2014 Other specified drug dependence, in remission 01/19/2011 Thoracic aortic aneurysm (HCC) 01/17/2011 Past Surgical History: Procedure Laterality Date COLONOSCOPY THRU STOMA, W/BIOPSY 03/02/2011 adenomas-repeat colonoscopy in 3 yrs COLONOSCOPY, DIAGNOSTIC (RECTUM) N/A 01/07/2021 non-bleeding internal hemorrhoids/recall 5 years/Colonoscopy/[place] CORONARY ANGIOGRAPHY W/LEFT HEART CATH 01/17/2011 CORONARY ANGIOGRAPHY W/LEFT HEART CATH performed by ELIANE ESCOBEDO at [facility] CORONARY ANGIOGRAPHY W/LEFT HEART CATH Right 03/18/2020 CORONARY ANGIOGRAPHY W/LEFT HEART CATH performed by Jhon Buchanan DO at [facility] INFORMATION hernia INFORMATION wisdom teeth REPLACEMENT AORTIC VALVE, BYPASS WITH PROSTHETIC VALVE 02/12/2011 REPLACEMENT AORTIC VALVE performed by JERRI BERRY at OR [facility] STERNAL DEBRIDEMENT 02/16/2011 STERNAL DEBRIDEMENT performed by JERRI BERRY at OR [facility] THORACOABDOMINAL ANEURYSM N/A 05/11/2020 THORACOABDOMINAL AORTIC ANEURYSM REPAIR WITH GRAFT performed by Philipp Valente MD at OR [facility] Review of patient's allergies indicates: No Known Allergies Current Outpatient Medications Medication Sig Dispense Refill Diclofenac Sodium 1 % Transdermal Gel (Voltaren) Place 2 g topically on the skin 2 times a day. To affected area as directed. 100 g 5 Warfarin Sodium 5 MG Oral Tablet (Coumadin) TAKE ONE-HALF TO ONE TABLET BY MOUTH DAILY OR DIRECTED BY COUMADIN CLINIC 90 Tablet 3 amLODIPine Besylate 10 MG Oral Tablet (Norvasc) Take 1 Tablet by mouth in the morning. 90 Tablet 3 Aspirin 81 MG Oral Tablet Chewable (Aspirin Low Dose) Take 1 Tablet by mouth in the morning. 91 Tablet 3 Atorvastatin Calcium 20 MG Oral Tablet (Lipitor) Take 1 Tablet by mouth in the morning. 90 Tablet 3 Lisinopril 40 MG Oral Tablet Take 1 Tablet by mouth in the morning. 90 Tablet 3 Metoprolol Succinate ER 200 MG Oral Tablet Extended Release 24 Hour Take 1 Tablet by mouth in the morning. 90 Tablet 3 Pantoprazole Sodium 40 MG Oral Tablet Delayed Release (Protonix) Take 1 Tablet by mouth in the morning. 90 Tablet 3 LORazepam 0.5 MG Oral Tablet (Ativan) Take 1 Tablet by mouth 3 times a day as needed for Anxiety. 30 Tablet 0 traZODone HCl 50 MG Oral Tablet (Desyrel) Take 1 Tab by mouth at bedtime. (Patient not taking: Reported on 10/20/2022) 30 Tab 5 No current facility-administered medications for this visit. Objective: BP 144/82 | Pulse 86 | Temp 36.6 C (97.9 F) (Temporal Artery) | Resp 18 | Ht 1.88 m (6' 2") | Wt 95.8 kg (211 lb 3.2 oz) | SpO2 98% | BMI 27.12 kg/m | BSA 2.24 m GEN: NAD HEENT: Benign NECK: Supple with no LAD, TM, JVD CHEST: CTA B CV: Chronic changes related to previous surgeries. ABD: Soft, NT/ND, No HSM, NABS EXT: No c,c,e. He does have good pedal pulses and good capillary refill. No wounds on the feet noted. Does have a tender spot on the lateral lower leg on the left. 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 Encourage compliance with meds. Recheck PT INR today and try to get work back into [facility] clinic. Patient will let us know if he can arrange transportation for an EGD. Continue proton pump inhibitor for now. Will obtain labs today to evaluate for possible neuropathy of the lower extremities. -for mental health, he will continue with his counselor. He was offered psychiatry visit in [facility] at this time. He does have anxiety which is often times exacerbated by physical symptoms that he gets due to the concerning diagnoses he has had in the past. He states he does get relief with lorazepam when he has a significant increase in anxiety and symptoms. We reviewed appropriate use of the medication and not taking it regularly. Prescription was sent for as needed use for severe anxiety. -continue follow up every 6 months or sooner if needed Follow Up: Return in about 6 months (around 10/22/2023) for recheck. | For: recheck 44 min spent with pt and documentation Neri Yeung MD documented in this encounter Nursing Notes * Katiana Chance LPN - 04/23/2023 1:11 PM EST The patient has been properly identified by confirmation of name and date of . Chief Complaint Patient presents with Status Check Return in 6 months Went to the ER last week Did not take his medication this morning documented in this encounter Plan of Treatment Upcoming Encounters Date Type Department Care Team (Late st Contact Info) Description 04/24/2023 7:00 AM EST Anticoagulation Pharmacy, [place] [address] [place] [address] [facility] [address] [place] [address] 04/26/2023 2:30 PM EST Telemedicine Psychology, [place] [address], [place] [id number] Norma Gottlieb LCSW [address] [place] [address] 05/07/2023 6:10 PM EST [facility]tico[facility], [place] [address] [facility] [address] [facility] [address] [facility] [address] 05/21/2023 9:30 AM EDT Imaging Vascular Lab, [facility] [address] [facility] [address] 10/22/2023 1:40 PM EDT Office Visit Family Practice, [place] [address] [facility] [address] Neri Yeung MD [address] [facility] [address] 11/29/2023 2:00 PM EDT Office Visit Ophthalmology, [facility] [address] [facility] [address] Kenneth Jalloh DO [facility] [place] [address] Pending Results Name Type Priority Associated Diagnoses Date /Time TSH WITH FREE T4 IF INDICATED Lab Routine Peripheral polyneuropathy 04/23/2023 2:38 PM EST HEMOGLOBIN A1C Lab Routine Peripheral polyneuropathy 04/23/2023 2:38 PM EST PT INR Lab Routine S/P aortic valve replacement 04/23/2023 2:38 PM EST Scheduled Orders Name Type Priority Associated Diagnoses Orde r Schedule TSH WITH FREE T4 IF INDICATED Lab Routine Peripheral polyneuropathy Expected: 04/23/2023 (Approximate), Expires: 04/22/2024 HEMOGLOBIN A1C Lab Routine Peripheral polyneuropathy Expected: 04/23/2023 (Approximate), Expires: 04/22/2024 PT INR Lab Routine S/P aortic valve replacement Expected: 04/23/2023 (Approximate), Expires: 04/22/2024 Scheduled Procedures Name Priority Associated Diagnoses Date/Ti [...] 01/07/2021, 01/07/2021, 03/02/2011 Lipid Panel 06/03/2026 06/03/2021, 1106/2019, 12/23/2014, Additional history exists DTaP,Tdap,and Td Vaccines [...] this encounter Medical Devices Implanted Type Area Second Grade Teacher Device Identifier Shelf Expiration Date Model / Serial / Lot Valve Conduit [id number] - [id number] Implanted:Qty: 1 on 02/12/2011 at OR [facility] Tissue - Non Human N/A: Heart ST HARMON[employer] : CARDIOVASCULAR 08/14/2011 27CAVGJ- 514 / [id number] / Graft Gelweave 8x15 [id number] - [id number] Implanted:Qty: 1 on 02/12/2011 at OR [facility] Right: Upper Arm [employer] : CARDIO SYS 08/03/2015 [id number] / / [id number] A Sut Steel 6 M654g - [id number] Implanted:Qty: 6 on 02/16/2011 at OR [facility] N/A: Chest DO NOT USE 10/03/2015 [id number] / / [id number] [place] Ptfe 6x6in X5 - [id number] Implanted:Qty: 1 on 05/11/2020 by Philipp Valente MD at OR [facility] N/A: Aorta CR BARD : PERIPHERAL VASCULAR 04/01/2024 [id number] / / [id number] 32 Mm X 30 Cm Gelweave Gelatin Impregnated Woven Vascular Prosthesis Implanted:Qty: 1 on 05/11/2020 by Philipp Valente MD at OR [facility] N/A: Aorta [employer] : VASCUTEK [id number] 08/02/2022 [id number] / [id number] / [id number] documented as of this encounter Visit Diagnoses Diagnosis S/P aortic valve replacement- Primary Heart valve replaced by other means History of thoracic aortic aneurysm repair Other postprocedural status HTN, goal below 130/80 Unspecified essential hypertension Dyslipidemia Other and unspecified hyperlipidemia Peripheral polyneuropathy Unspecified hereditary and idiopathic peripheral neuropathy Anxiety 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 No Full Code 02/25/2011 1:12 AM 02/25/2011 6:33 PM Thi s order reflects the patients wishes and were consensually agreed upon. Question Answer Comments Discussion of Advance Directives occurred with: Patient Does the patient have a Living Will? No Does the patient have Health Care Power of [place]man? No Full Code 02/12/2011 9:04 PM 02/21/2011 9:44 AM Thi s order reflects the patients wishes and were consensually agreed upon. Care Teams Forestry Tree Pruner Relationship Specialty Start Date End Date Neri Yeung MD [address] [place] [address] PCP - General Family Medicine 07/08/21 documented as of this encounter
--- OUTSIDE RECORDS SUMMARY | 2023-05-26 12:09 | External Medical Summary ---
Author Name Unknown Address Unknown Organization K01:[facility]ATORY [facility] [address] [place] [address] Laboratory Report Ordering Provider Test Date Status ERLIN PAEZ 04/23/2023 14:38:20 Final Observation Date Value Abnormality Reference (Units ) Status Triglyceride 04/23/2023 14:38:20 111 <=174 ( mg/dL) Final Triglyceride Reference Range s (mg/dL):
<150 Acceptable
150-174 Borderline high
175-499 High
>=500 Very high Cholesterol 04/23/2023 14:38:20 249 Above high normal <200 (mg/dL) Final Total Cholesterol Reference Ranges (mg/dL):
<200 Desirable
200-239 Borderline high
>=240 High HDL 04/23/2023 14:38:20 40 >39 (mg/dL ) Final HDL Cholesterol Reference Ra nges (mg/dL):
>=60 High (Desirable)
<50 Low (Undesirable) For Females
<40 Low (Undesirable) For Males NON-HDL CHOLESTEROL 04/23/2023 14:38:20 209 Above high normal <=159 (mg/dL) Final Non-HDL Cholesterol Referenc e Range (mg/dL):
<100 Target level for high risk ASCVD patient
<130 Optimal for general population
130-159 Near optimal for general population
160-189 Borderline High
190-219 High
>=220 Very High LDL, (calculated) 04/23/2023 14:38:20 187 Above high n ormal <=129 (mg/dL) Final LDL Cholesterol Reference Ra nges (mg/dL):
<70 Target level for high risk ASCVD patient
<100 Optimal for general population
100-129 Near optimal for general population
130-159 Borderline high
160-189 High
>=190 Very high Performing Location [place] [facility] [place] [address] [facility] [place] [address]
--- OUTSIDE RECORDS SUMMARY | 2023-05-26 12:09 | External Medical Summary ---
Author Name Unknown Address Unknown Organization K01:[place] [facility] [place] [address] [place] [address] Laboratory Report Ordering Provider Test Date Status ERLIN PAEZ 04/23/2023 14:38:20 Final Observation Date Value Abnormality Reference (Units ) Status Vitamin B12 04/23/2023 14:38:20 [phone] (pg/mL) Final Performing Location LABORATORY [facility] - [address] [place] [address]
--- OUTSIDE RECORDS SUMMARY | 2023-05-26 12:09 | External Medical Summary | Summary of Care ---
Author Name Unknown Organization [facility] Address [address] [place] [address] Phone [phone] Care Team Providers Care Dual Rate Dealer Name Role Phone Neri Yeung MD Primary Care Provider +1- [phone] Reason for Visit * Reason Onset Date Comments STAIR AAA 08/03/2022 Encounter Details Date Type Department Care Team (Late st Contact Info) Description 08/03/2022 Telephone STAIR AAA [address], [place] [id number] Program, Stair [address] [place] [address] STAIR AAA Allergies No known active allergiesdocumented as of this encounter (statuses as of 05/23/2023) Medications Medication Sig Dispensed Refills Start Date End Date Status Diclofenac Sodium 1 % Transdermal Gel (Voltaren)Indica tions:Chronic left-sided thoracic back pain Place 2 g topically on the skin 2 times a day. To affected area as directed. 100 g 5 0 Active traZODone HCl 50 MG Oral Tablet (Desyrel)Indicat ions:Persistent insomnia Take 1 Tab by mouth at bedtime. 30 Tab 5 1 Active Additional Information Patient not taking.Reported on 10/20/2022 Warfarin Sodium 5 MG Oral Tablet (Coumadin) TAKE ONE-HALF TO ONE TABLET BY MOUTH DAILY OR DIRECTED BY COUMADIN CLINIC 90 Tablet 3 3 Active amLODIPine Besylate 10 MG Oral Tablet (Norvasc)Indicat ions:HTN, goal below 130/80 TAKE 1 TABLET BY MOUTH EVERY DAY 90 Tab 3 1 02/29/20 23 Discontinued(Ref ill) Lisinopril 40 MG Oral Tablet TAKE 1 TABLET BY MOUTH EVERY DAY 90 Tablet 0 2 02/29/20 23 Discontinued(Ref ill) Atorvastatin Calcium 20 MG Oral Tablet (Lipitor)Indicat ions:Dyslipidemi a Take by mouth 1 Tablet in the morning. 90 Tablet 3 2 02/29/20 23 Discontinued(Ref ill) Pantoprazole Sodium 40 MG Oral Tablet Delayed Release (Protonix) Take by mouth 1 Tablet in the morning. 90 Tablet 3 2 11/29/19 23 Discontinued Aspirin Low Dose 81 MG Oral Tablet Chewable (aspirin)Indicat ions:Dissection of thoracic aorta (HCC) TAKE 1 TABLET BY MOUTH EVERY DAY 91 Tablet 3 2 12/01/19 23 Discontinued Metoprolol Succinate ER 200 MG Oral Tablet Extended Release 24 Hour TAKE 1 TABLET BY MOUTH EVERY DAY 90 Tablet 1 2 08/23/19 23 Discontinued documented as of this encounter (statuses as of 05/23/2023) Active Problems Problem Noted Date Diagnosed Date [...] valve disorder 02/13/2011 Anticoagulation management encounter 02/13/2011 residential current use of anticoagulant therapy 1 04/16/2010 Overview: ICD-10 update of inactive term documented as of this encounter (statuses as of 05/23/2023) Resolved Problems Problem Noted Date Diagnosed Date [...] as of this encounter (statuses as of 05/23/2023) Immunizations Name Administration Dates Next Due COVID-19 [...] 0.3 15 0 04/05/2005 - 04/05/2020 Cigars Smokeless Tobacco: Former Alcohol Use Standard Drinks/Week [...] No 05/10/2020 documented as of this encounter Miscellaneous Notes * Telephone Encounter - Popeye Laurent LPN - 05/23/2023 9:39 AM EDT AAA - Communication to Patient Called and spoke to patient. Has no transportation. Is getting medical assistance corrected. Scheduled for next month as patient feels he will be able to make this appt. Popeye Laurent LPN Coordinator PO (System to Track Abnormalities of Importance Reliably) [phone] * Telephone Encounter - Popeye Laurent LPN - 05/21/2023 3:42 PM EDT AAA - Communication to Patient Patient cancelled imaging for today. Attempted to call patient. No answer. Voicemail full. Popeye Laurent LPN Coordinator PO (System to Track Abnormalities of Importance Reliably) [phone] * Addendum Note - Popeye Laurent LPN - 04/04/2023 2:24 PM ESTAddended by: POPEYE LAURENT on: 04/04/2023 02:24 PM Modules accepted: Orders * Telephone Encounter - Popeye Laurent LPN - 04/04/2023 2:23 PM EST Patient returned call. Scheduled next duplex. * Telephone Encounter - Popeye Laurent LPN - 04/04/2023 2:05 PM EST AAA - Communication to Patient Patient due for next imaging in May, scheduled. Left Message for patient to return call. Popeye Laurent LPN Coordinator PO (System to Track Abnormalities of Importance Reliably) [phone] * Telephone Encounter - Popeye Laurent LPN - 08/03/2022 11:57 AM EDT AAA - Clinical Summary Name: Juan Hamilton Age: [age] year old AAA Review: Initial Patient Identified by: Problem List Report Imaging Interpretation: CT Type of Result: AAA 3.0 to 3.9 cm AAA Care Plan Recommendation: Aortic Duplex - details below Details: in 2 years Next steps: Enroll in STAIR Program. AAA - Communication to Patient Patient contacted, recommendations reviewed, patient agrees, follow-up letter sent. Enrolled in STAIR Program PCP JEREMY Laurent LPN Coordinator PO (System to Track Abnormalities of Importance Reliably) [phone] Patient managed in STAIR Program for Abdominal Aortic Aneurysm - banner added Popeye L Shriner, ACTIONSCRIPT DEVELOPER Coordinator STAIR (System to Track Abnormalities of Importance Reliably) CT ABD/PELVIS WO IV/ORAL CONTRAST 05/16/[address] CHEST WO CONTRAST; CT ABD/PELVIS WO IV/ORAL CONTRAST05/16/2021 1:07 pm; 05/16/2021 1:06 pm HISTORY s/p thoracoabdominal aneurysm repair; f/u replacement of descending thoracic aorta TECHNIQUE No intravenous contrast was administered. Oral contrast was not administered. COMPARISON XR CHEST 2 VIEWS dated 06/18/2020; CTA CHEST NON-CORONARY W CONTRAST dated 01/28/2020; CTA THORAX - NON CORONARY dated 04/14/2016; CTA THORAX - NON CORONARY dated 11/26/2014 FINDINGS CHEST: LUNG AND LARGE AIRWAYS: There is linear subsegmental atelectasis scattered throughout the left lung. There is a 0.2 cm right upper lobe nodule that is unchanged from 2015 (image 100 series 12). Thereis a 0.2 cm left upper lobe nodule that is unchanged from 2015 (image 104 series 12). A few additional tiny nodules measure less than 0.5 cm in size and are largely unchanged. PLEURA: Mild pleural thickening in the left hemithorax adjacent to the descending thoracic aorta isvisualized. VESSELS: Aortic valve replacement is seen. Postsurgical changes are seen throughout the thoracic aorta. At the level of the pulmonary artery bifurcation, the ascending thoracic aorta measures 3.6 x 4.0 cm (image 163 series 12). The distal ascending thoracic aorta measures 3.9 x 5.4 cm (image 141 series 12). The aorta measures 3.8 x 4.2 cm at the arch. The proximal descending thoracic aorta measures 4.0 x 3.4 cm (image 143 series 12). In the mid descending thoracic aorta at the level left pulmonary veins the aorta measures 3.3 x 4.1 cm. The descending thoracic aorta is tortuous. At the hiatus the aorta measures 4.2 x 4.0 cm (image 319 series 12). HEART: normal size. No pericardial effusion. MEDIASTINUM AND DEAN: within normal limits. CHEST WALL AND LOWER NECK: Sternotomy wires are visualized. ABDOMEN: LIVER: within normal limits. BILE DUCTS: normal caliber. GALLBLADDER: No calcified gallstones. Normal caliber wall. PANCREAS: within normal limits. SPLEEN: within normal limits. ADRENALS: within normal limits. BOWEL: Appendix is normal. Gastrointestinal tract is normal in caliber. KIDNEYS: within normal limits. PELVIS: REPRODUCTIVE ORGANS: no pelvic masses. URETERS: within normal limits. BLADDER: Decompressed. LYMPH NODES: No enlarged mesenteric lymph nodes. RETROPERITONEUM/PERITONEUM: no ascites or free air, no fluid collection. VESSELS: The abdominal aorta measures 3.9 x 3.5 cm at the origin of the superior mesenteric artery (image 100 series 23). The infrarenal abdominal aorta measures 3.6 x 3.3 cm at the origin of the inferior mesenteric artery (image 173 series 23). The infrarenal abdominal aorta measures up to 3.7 x 3.6 cm in diameter caudal to the origin of the inferior mesenteric artery (image 186 series 23). The left common iliac artery measures up to 1.9 x 2.0 cm. The right common iliac artery measures up to 1.7 x 1.6 cm. ABDOMINAL WALL: Postsurgical changes are seen in the right groin. BONES: There is degenerative change in the spine. Impression IMPRESSION 1. Dilatation of the aorta is as described. Postsurgical changes are seen throughout the thoracic aorta. 2. A few subcentimeter pulmonary nodules are again visualized, not significantly changed from previous exams. No follow-up is required. * Telephone Encounter - Kenton Ugalde CRNP - 08/03/2022 8:27 AM EDT Yes, should be enrolled. * Telephone Encounter - Popeye Laurent LPN - 08/03/2022 8:18 AM EDT AAA - Clarification Please verify the AAA diagnosis and make any necessary changes to this patient's problem list. Is this a STAIR patient? CT ABD/PELVIS WO IV/ORAL CONTRAST 05/16/[address] CHEST WO CONTRAST; CT ABD/PELVIS WO IV/ORAL CONTRAST05/16/2021 1:07 pm; 05/16/2021 1:06 pm HISTORY s/p thoracoabdominal aneurysm repair; f/u replacement of descending thoracic aorta TECHNIQUE No intravenous contrast was administered. Oral contrast was not administered. COMPARISON XR CHEST 2 VIEWS dated 06/18/2020; CTA CHEST NON-CORONARY W CONTRAST dated 01/28/2020; CTA THORAX - NON CORONARY dated 04/14/2016; CTA THORAX - NON CORONARY dated 11/26/2014 FINDINGS CHEST: LUNG AND LARGE AIRWAYS: There is linear subsegmental atelectasis scattered throughout the left lung. There is a 0.2 cm right upper lobe nodule that is unchanged from 2015 (image 100 series 12). Thereis a 0.2 cm left upper lobe nodule that is unchanged from 2015 (image 104 series 12). A few additional tiny nodules measure less than 0.5 cm in size and are largely unchanged. PLEURA: Mild pleural thickening in the left hemithorax adjacent to the descending thoracic aorta isvisualized. VESSELS: Aortic valve replacement is seen. Postsurgical changes are seen throughout the thoracic aorta. At the level of the pulmonary artery bifurcation, the ascending thoracic aorta measures 3.6 x 4.0 cm (image 163 series 12). The distal ascending thoracic aorta measures 3.9 x 5.4 cm (image 141 series 12). The aorta measures 3.8 x 4.2 cm at the arch. The proximal descending thoracic aorta measures 4.0 x 3.4 cm (image 143 series 12). In the mid descending thoracic aorta at the level left pulmonary veins the aorta measures 3.3 x 4.1 cm. The descending thoracic aorta is tortuous. At the hiatus the aorta measures 4.2 x 4.0 cm (image 319 series 12). HEART: normal size. No pericardial effusion. MEDIASTINUM AND DEAN: within normal limits. CHEST WALL AND LOWER NECK: Sternotomy wires are visualized. ABDOMEN: LIVER: within normal limits. BILE DUCTS: normal caliber. GALLBLADDER: No calcified gallstones. Normal caliber wall. PANCREAS: within normal limits. SPLEEN: within normal limits. ADRENALS: within normal limits. BOWEL: Appendix is normal. Gastrointestinal tract is normal in caliber. KIDNEYS: within normal limits. PELVIS: REPRODUCTIVE ORGANS: no pelvic masses. URETERS: within normal limits. BLADDER: Decompressed. LYMPH NODES: No enlarged mesenteric lymph nodes. RETROPERITONEUM/PERITONEUM: no ascites or free air, no fluid collection. VESSELS: The abdominal aorta measures 3.9 x 3.5 cm at the origin of the superior mesenteric artery (image 100 series 23). The infrarenal abdominal aorta measures 3.6 x 3.3 cm at the origin of the inferior mesenteric artery (image 173 series 23). The infrarenal abdominal aorta measures up to 3.7 x 3.6 cm in diameter caudal to the origin of the inferior mesenteric artery (image 186 series 23). The left common iliac artery measures up to 1.9 x 2.0 cm. The right common iliac artery measures up to 1.7 x 1.6 cm. ABDOMINAL WALL: Postsurgical changes are seen in the right groin. BONES: There is degenerative change in the spine. Impression IMPRESSION 1. Dilatation of the aorta is as described. Postsurgical changes are seen throughout the thoracic aorta. 2. A few subcentimeter pulmonary nodules are again visualized, not significantly changed from previous exams. No follow-up is required. documented in this encounter Plan of Treatment Upcoming Encounters Date Type Department Care Team (Late st Contact Info) Description 05/24/2023 2:30 PM EDT Telemedicine [facility], [place] [address] [place] [address] Norma Gottlieb, [facility] [address] [place] [address] 06/05/2023 6:10 PM EDT Anticoagulation Pharmacy, [place] [address] [place] [address] [facility] [address] [place] [address] 06/19/2023 9:30 AM EDT Imaging Vascular Lab, [facility] 2nd Floor, [address] [address] 10/22/2023 1:40 PM EDT Office Visit Family [facility], [place] [address] [place] [id number] Neri [facility]ung [facility] [address] [facility] [address] 11/29/2023 2:00 PM EDT Office Visit Ophthalmology, [facility] [address] [place] [address] Kenneth Jalloh, [address] [place] [address] Scheduled Orders Name Type Priority Associated Diagnoses Orde r Schedule VASC AORTIC DUPLEX EVAL-COMPLETE Medical Imaging Routine 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) Ordered: 04/04/2023 Scheduled Procedures Name Priority Associated Diagnoses Date/Ti me COLONOSCOPY FLEXIBLE PROXIMA L DIAGNOSTIC Recall Screening for colon cancer Health Maintenance Due Date Last Done Comments Albumin/Creatinine Ratio 1988 Hepatitis B (1 of 3 - 19+ 3-dose series) 1989 Depression Screening 04/02/2018 04/02/2017 Zoster Vaccines (1 of 2) 2020 COVID-19 Vaccine (3 - 2022-24 season) 2022 [...] this encounter Medical Devices Implanted Type Area Multigraph Operator Device Identifier Shelf Expiration Date Model / Serial / Lot Valve Conduit [id number]-[id number] - [id number] Implanted:Qty: 1 on 02/12/2011 at [place] [facility] [place] Tissue - Non Human N/A: Heart [facility] [place] : CARDIOVASCULAR 08/14/2011 27CAVGJ- 514 / [id number] / Graft Gelweave 8x15 [id number] - [id number] Implanted:Qty: 1 on 02/12/2011 at OR [facility] [place] Right: Upper Arm [employer] : CARDIO SYS 08/03/2015 [id number] / / [id number] Sut Steel 6 M654g - [id number] Implanted:Qty: 6 on 02/16/2011 at [place] [facility] [place] N/A: Chest DO NOT USE 10/03/2015 [id number] / / [id number] [place] Ptfe 6x6in X5 - [id number] Implanted:Qty: 1 on 05/11/2020 by Philipp Valente MD at OR [facility] N/A: Aorta CR BARD : PERIPHERAL VASCULAR 04/01/2024 [id number] / / [id number] 32 Mm X 30 Cm Gelweave Gelatin Impregnated Woven Vascular Prosthesis Implanted:Qty: 1 on 05/11/2020 by Philipp Valente MD at OR [facility] N/A: Aorta [employer] : VASCUTEK [id number] 08/02/2022 [id number] / [id number] / [id number] documented as of this encounter Visit Diagnoses Diagnosis 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)- Primary documented in this encounter Advance [...] the patient have Health Care Power of Sound Effects Supervisor? No Full Code 02/25/2011 1:12 AM 02/25/2011 6:33 PM Thi s order reflects the patients wishes and were consensually agreed upon. Question Answer Comments Discussion of Advance Directives occurred with: Patient Does the patient have a Living Will? No Does the patient have Health Care Power of Sound Effects Supervisor? No Full Code 02/12/2011 9:04 PM 02/21/2011 9:44 AM Thi s order reflects the patients wishes and were consensually agreed upon. Care Teams Dual Rate Dealer Relationship Specialty Start Date End Date Neri Yeung MD [address] [facility] [address] PCP - General Family Medicine 07/08/21 documented as of this encounter
--- OUTSIDE RECORDS SUMMARY | 2023-05-26 12:09 | External Medical Summary ---
Author Name Unknown Address Unknown Organization K01:LAB[place] [facility] [place] [address] [place] [address] Laboratory Report Ordering Provider Test Date Status ERLIN PAEZ 04/23/2023 14:38:20 Final Warfarin Therapy
INR: 2 .0-3.0 conventional anticoagulation
INR: 2.5- 3.5 high intensity anticoagulation Observation Date Value Abnormality Reference (Units ) Status PT 04/23/2023 14:38:20 21.6 Above high normal 11 .6-15.2 (seconds) Final INR 04/23/2023 14:38:20 1.9 Above high normal 0. 8-1.2 Final Performing Location LAB[facility] [facility] [place] [address] [place] [address]
--- OUTSIDE RECORDS SUMMARY | 2023-05-26 12:09 | External Medical Summary | Summary of Care ---
Author Name Unknown Organization [facility] Address [address] [place] [address] Phone [phone] Care Team Providers Care State Historical Society Director Name Role Phone Neri Yeung MD Primary Care Provider +1- [phone] Reason for Visit * Reason Onset Date Comments STAIR AAA 08/03/2022 Encounter Details Date Type Department Care Team (Late st Contact Info) Description 08/03/2022 Telephone STAIR AAA [address] [place], [place] [id number] Program, Stair [address] [place] [address] STAIR AAA Allergies No known active allergiesdocumented as of this encounter (statuses as of 05/21/2023) Medications Medication Sig Dispensed Refills Start Date [...] as of this encounter (statuses as of 05/21/2023) Active Problems Problem Noted Date Diagnosed Date [...] as of this encounter (statuses as of 05/21/2023) Resolved Problems Problem Noted Date Diagnosed Date [...] as of this encounter (statuses as of 05/21/2023) Immunizations Name Administration Dates Next Due COVID-19 [...] answer. Voicemail full. Popeye Laurent LPN Coordinator STAIR (System to Track Abnormalities of Importance Reliably) [phone] * Addendum Note - Popeye Laurent LPN [...] Patient due for next imaging in May, needs scheduled. Left Message for patient to return call. Popeye Laurent LPN Coordinator PO (System to Track Abnormalities of Importance Reliably) [phone] * Telephone Encounter - Popeye Laurent LPN [...] STAIR Program PCP JEREMY Laurent LPN Coordinator OP (System to Track Abnormalities of Importance Reliably) [phone] Patient managed in STAIR Program for Abdominal Aortic Aneurysm - banner added Popeye Laurent LPN Coordinator PO (System to [...] Info) Description 05/24/2023 2:30 PM EDT Telemedicine Psychology, [place] [address] [place], [place] [phone] Norma Gottlieb [facility] [address] [place], [place] [id number] 06/05/2023 6:10 PM EDT Anticoagulation Pharmacy, [place] [address] [place] [address] [facility] [address] [place] [address] 10/22/2023 1:40 PM EDT Office Visit Family [facility], [place] [address] [place] [address] Neri Yeung MD [address] [place] [address] 11/29/2023 2:00 PM EDT Office Visit Ophthalmology, [facility] [address] [facility] [address] Kenneth Jalloh, [address] [facility] [place] [address] Scheduled Orders Name Type Priority Associated Diagnoses [...] this encounter Medical Devices Implanted Type Area Pan Operator Device Identifier Shelf Expiration Date Model / Serial / Lot Valve Conduit [id number]-[id number] - [id number] Implanted:Qty: 1 on 02/12/2011 at [place] [facility] [place] Tissue - Non Human N/A: Heart [employer] [place] : CARDIOVASCULAR 08/14/2011 27CAVGJ- 514 / [id number] / Graft Gelweave 8x15 [id number] - [id number] Implanted:Qty: 1 on 02/12/2011 at OR [facility] [place] Right: Upper Arm [employer] : CARDIO SYS 08/03/2015 [id number] / / [id number] A Sut Steel 6 M654g - [id number] Implanted:Qty: 6 on 02/16/2011 at OR [facility] [place] N/A: Chest DO NOT USE 10/03/2015 M654G / / [id number] [place] Ptfe 6x6in X5 - [id number] Implanted:Qty: 1 on 05/11/2020 by Philipp Valente MD at OR [facility] N/A: Aorta CR BARD : PERIPHERAL VASCULAR 04/01/2024 [id number] / / [id number] 32 Mm X 30 Cm Gelweave Gelatin Impregnated Woven Vascular Prosthesis Implanted:Qty: 1 on 05/11/2020 by Philipp Valente MD at OR [facility] N/A: Aorta [employer] : VASCUTEK [id number] 08/02/2022 [id number] / [id number] / [id number] documented as of this encounter Visit [...] the patient have Health Care Power of Travel Director? No Full Code 02/25/2011 1:12 AM 02/25/2011 6:33 PM Thi s order reflects the patients wishes and were consensually agreed upon. Question Answer Comments Discussion of Advance Directives occurred with: Patient Does the patient have a Living Will? No Does the patient have Health Care Power of Travel Director? No Full Code 02/12/2011 9:04 PM 02/21/2011 9:44 AM Thi s order reflects the patients wishes and were consensually agreed upon. Care Teams State Historical Society Director Relationship Specialty Start Date End Date Neri Yeung MD [address] [place] [address] PCP - General Family Medicine 07/08/21 documented as of this encounter
--- OUTSIDE RECORDS SUMMARY | 2023-05-26 12:09 | External Medical Summary | Summary of Care ---
Author Name Unknown Organization [facility] Address [address] [place] [address] Phone [phone] Care Team Providers Care Pest Control Supervisor Name Role Phone Neri Yeung MD Primary Care Provider [phone]- [phone] Reason for Visit * Reason Comments Depression Encounter Details Date Type Department Care Team (Late st Contact Info) Description 04/26/2023 2:30 PM EST [facility] [address], [place] [id number] Norma Gtotlieb LCSW [address] [place] [address] Current moderate episode of major depressive disorder without prior episode (HCC)* Allergies No known active allergiesdocumented as of this encounter (statuses as of 04/26/2023) Medications Medication Sig Dispensed Refills Start Date [...] as of this encounter (statuses as of 04/26/2023) Active Problems Problem Noted Date Diagnosed Date [...] valve disorder 02/13/2011 Anticoagulation management encounter 02/13/2011 long term acute care registered nurse current use of anticoagulant therapy 1 04/16/2010 Overview: ICD-10 update of inactive term documented as of this encounter (statuses as of 04/26/2023) Resolved Problems Problem Noted Date Diagnosed Date [...] as of this encounter (statuses as of 04/26/2023) Immunizations Name Administration Dates Next Due COVID-19 [...] this encounter Progress Notes * Norma Gottlieb, ASSISTANT PROFESSOR OF SOCIOLOGY - 04/26/2023 2:30 PM EST Patient location: HOME. I was not in a hospital or clinic location. After connecting through [employer], patient was verified with two unique identifiers. Patient (or authorized legal retail customer service representative) was then informed that this [...] that I have reviewed their record in [employer] and presented the opportunity for them to ask any questions regarding the visit today. The patient agreed to participate. Provider reviewed elements of Outpatient Services Description including limits of confidentiality, how to contact the department, risks and benefits of treatment and consent for treatment. Start Time: 2:30 PM Stop Time: 3:28 PM Total direct [id number] time: 58 minutes BEHAVIORAL MEDICINE PROGRESS NOTE Psychology, [address] [address] TYPE OF VISIT: Individual DIAGNOSIS: depression REASON FOR FOLLOW-UP: Individual therapy SESSION FOCUS: The main themes of the session were: exploration of health concerns; management and coping with daily life; and exploration and coping with feelings of guilt and anxiety NOTES: Pt reported a visit to the ED due to chest pain. Pt reported the chest pain brings on anxiety due to his history of serious heart issues. Pt subsequently visited his PCP and discussed these concerns.Pts PCP prescribed an anti-anxiety medication to help the patient when his anxiety spirals. Pt continues to struggle with feelings of guilt in regard to a very close friend he is not getting along with. Pt believes that he was the cause of his friend becoming involved with the legal system when he was younger so in the past he would often look past the ways his friend disrespected him. Now though, his friend has acted in ways that the patient can no longer look past. Goal: Improved self-management of depression INTERVENTION: The main therapeutic interventions consisted of: supportive techniques; an emphasis on self-expression; and evaluating and addressing dysfunctional thoughts. Outpatient Adult Therapy Treatment Plan Treatment plan [...] obtained at the time or before [facility] bulletin extension expires. Patient has access to [employer] 16-20 sessions every other week Patient Identified [...] provider within [facility], information is shared automatically in medical record [...] risk from last session (see note dated 04/19/23 for further details) FOLLOW-UP PLAN: Return: 2 weeks Action Plan: 1. Continue Cognitive Behavioral Therapy and Motivational Interviewing 2. Continue medication management Treatment plan reviewed with the patient. Patient voices understanding and concurs with plan. Norma Gottlieb LCSW Division of Psychiatry & Behavioral Medicine [facility] [phone] documented in this encounter Plan of Treatment Upcoming Encounters Date Type Department Care Team (Late st Contact Info) Description 05/10/2023 2:30 PM EST Telemedicine Psychology, [place] [address] [place] [address] Norma Gottlieb LCSW [address] [place] [address] 05/21/2023 9:30 AM EDT Imaging Vascular Lab, [facility] [address] [place] [address] 06/05/2023 6:10 PM EDT [address], [address] [id number] [facility] [address] [place] [facility] [place] [address] 10/22/2023 1:40 PM EDT Office Visit Family Practice, [place] [address] [facility] [id number] Neri Yeung MD [address] [place] [address] 11/29/2023 2:00 PM EDT Office Visit Ophthalmology, [facility] [address] [facility] [place] [address] Kenneth Jalloh, DO [address] [facility] [address] [place] [address] Scheduled Procedures Name Priority Associated Diagnoses Date/Ti [...] this encounter Medical Devices Implanted Type Area Mascara Molder Device Identifier Shelf Expiration Date Model / Serial / Lot Valve Conduit [id number] - [id number] Implanted:Qty: 1 on 02/12/2011 at OR [facility] Tissue - Non Human N/A: Heart ST HARMONY : CARDIOVASCULAR 08/14/2011 27CAVGJ- 514 / [id number] / Graft Gelweave 8x15 [id number] - [id number] Implanted:Qty: 1 on 02/12/2011 at OR [facility] Right: Upper Arm [employer] : CARDIO SYS 08/03/2015 [id number] / / [id number] A Sut Steel 6 M654g - [id number] Implanted:Qty: 6 on 02/16/2011 at OR [facility] N/A: Chest DO NOT USE 10/03/2015 [id number] / / [id number] [place] Ptfe 6x6in X5 - [id number] Implanted:Qty: 1 on 05/11/2020 by Philipp Valente MD at OR [facility] N/A: Aorta CR BARD : PERIPHERAL VASCULAR 04/01/2024 [id number] / / [id number] 32 Mm X 30 Cm Gelweave Gelatin Impregnated Woven Vascular Prosthesis Implanted:Qty: 1 on 05/11/2020 by Philipp Valente MD at OR [facility] N/A: Aorta [employer] : VASCUTEK [id number] 08/02/2022 [id number] / [id number] / [id number] documented as of this encounter Visit Diagnoses [...] the patient have Health Care Power of Public Health Doctor? No Full Code 02/25/2011 1:12 AM 02/25/2011 6:33 PM Thi s order reflects the patients wishes and were consensually agreed upon. Question Answer Comments Discussion of Advance Directives occurred with: Patient Does the patient have a Living Will? No Does the patient have Health Care Power of Public Health Doctor? No Full Code 02/12/2011 9:04 PM 02/21/2011 9:44 AM Thi s order reflects the patients wishes and were consensually agreed upon. Care Teams Pest Control Supervisor Relationship Specialty Start Date End Date Neri Yeung MD [address] [place] [address] PCP - General Family Medicine 07/08/21 documented as of this encounter
--- OUTSIDE RECORDS SUMMARY | 2023-05-26 12:09 | External Medical Summary | Summary of Care ---
Author Name Unknown Organization [facility] Address [address] [place] [address] Phone [phone] Care Team Providers Care Bead Inspector Name Role Phone Neri Yeung MD Primary Care Provider +1- [phone] Reason for Visit * Reason Comments Dosage Adjustment Via Phone (anticoag Cl inic) Encounter Details Date Type Department Care Team (Latest Contact Info) Description 04/24/2023 7:00 AM [facility] Anticoagulation Pharmacy, [place] [address] [place] [address] [facility] [address] [place] [address] S/P aortic valve replacement*; 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); 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 Allergies No known active allergiesdocumented as of this encounter (statuses as of 04/24/2023) Medications Medication Sig Dispensed Refills Start Date [...] as of this encounter (statuses as of 04/24/2023) Active Problems Problem Noted Date Diagnosed Date [...] valve disorder 02/13/2011 Anticoagulation management encounter 02/13/2011 [facility] current use of anticoagulant therapy 1 04/16/2010 Overview: ICD-10 update of inactive term documented as of this encounter (statuses as of 04/24/2023) Resolved Problems Problem Noted Date Diagnosed Date [...] as of this encounter (statuses as of 04/24/2023) Immunizations Name Administration Dates Next Due COVID-19 [...] as of this encounter Progress Notes * Miguel Angel Cooper [facility] - 04/24/2023 8:08 AM EST Images from the original note were not included. Patient Phone Numbers Called at 8:12 AM, 9:06 AM and no answer/voicemail full. Description Compliance: counseled patient on the need for compliance with his warfarin therapy and Anticoagulation Clinic appointments to help ensure the safety and efficacy of the medication regimen. Patient understands the risks of non- compliance, such as blood clots and bleeding with not taking their warfarin as prescribed on a daily basis. INR Result As of 04/24/2023 INR goal: 2.5-3.5 INR used for dosin.9 (04/23/2023) Patient Findings Positives: Missed doses (He missed 4 doses last week after going to ER and INR was ~5.) Negatives: Signs/symptoms of thrombosis, Signs/symptoms of bleeding, Change in health, Change in alcohol use, Change in activity, Upcoming invasive procedure, Extra doses, Change in medications, Change in diet/appetite, Bruising Warfarin Plan As of 04/24/2023 Full warfarin instructions: 10 mg every Sun, Tue, Nataly; 5 mg all other days Next INR check: 05/22/2023 Repeat PT/INR in 4 week(s) Weekly dose: not changed Miguel Angel Pina RPh, CACP, CDE Clinical Pharmacist Medication Therapy Management Clinic 04/24/2023, 8:11 AM documented in this encounter Plan of Treatment Upcoming Encounters Date Type Department Care Team (Late st Contact Info) Description 04/26/2023 2:30 PM EST Telemedicine [facility] [address] [place] [address] Norma Gottlieb [facility] [address] [place] [address] 05/21/2023 9:30 AM EDT Imaging Vascular Lab, [facility] [address] [address] 06/05/2023 6:10 PM EDT Anticoagulation Pharmacy, [place] [address] [facility] [place] [address] [place], [facility] [address] [facility] [place] [address] 10/22/2023 1:40 PM EDT Office Visit Family [facility], [place] [address] [facility] [place] [phone] Neri Yeung MD [address] [place] [facility] [place] [address] 11/29/2023 2:00 PM EDT Office Visit Ophthalmology, [facility] [address] [facility] [place] [address] Kenneth Jalloh, DO 21 [facility] [place] [address] Scheduled Procedures Name Priority Associated Diagnoses Date/Ti me COLONOSCOPY FLEXIBLE PROXIMA L DIAGNOSTIC Recall Screening for colon cancer Health Maintenance Due Date Last Done Comments Albumin/Creatinine Ratio 1988 Hepatitis B (1 of 3 - 19+ 3-dose series) 1989 Depression Screening 04/02/2018 04/02/2017 Zoster Vaccines (1 of 2) 2020 COVID-19 Vaccine ( - 2022- season) 2022 10/05/2020, 09/03/2020 Influenza [...] this encounter Medical Devices Implanted Type Area Company Dancer Device Identifier Shelf Expiration Date Model / Serial / Lot Valve Conduit [id number] - [id number] Implanted:Qty: 1 on 02/12/2011 at OR [facility] Tissue - Non Human N/A: Heart ST [place]MONY : CARDIOVASCULAR 08/14/2011 27CAVGJ- 514 / [id number] / Graft Gelweave 8x15 [id number] - [id number] Implanted:Qty: 1 on 02/12/2011 at OR [facility] Right: Upper Arm [employer] : CARDIO SYS 08/03/2015 [id number] / / [id number] A Sut Steel 6 M654g - [id number] Implanted:Qty: 6 on 02/16/2011 at OR [facility] N/A: Chest DO NOT USE 10/03/2015 M654G / / [id number] [place] Ptfe 6x6in X5 - [id number] Implanted:Qty: 1 on 05/11/2020 by Philipp Valente MD at OR [facility] N/A: Aorta CR BARD : PERIPHERAL VASCULAR 04/01/2024 [id number] / / [id number] 32 Mm X 30 Cm Gelweave Gelatin Impregnated Woven Vascular Prosthesis Implanted:Qty: 1 on 05/11/2020 by Philipp Valente MD at OR [facility] N/A: Aorta [employer] : VASCUTEK [id number] 08/02/2022 [id number] / [id number] / [id number] documented as of this encounter Visit Diagnoses Diagnosis S/P aortic valve replacement- Primary Heart valve replaced by other means 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) [facility] current use of anticoagulant therapy documented in [...] the patient have Health Care Power of Reaming Machine Operator For Plastic? No Full Code 02/25/2011 1:12 AM 02/25/2011 6:33 PM Thi s order reflects the patients wishes and were consensually agreed upon. Question Answer Comments Discussion of Advance Directives occurred with: Patient Does the patient have a Living Will? No Does the patient have Health Care Power of Reaming Machine Operator For Plastic? No Full Code 02/12/2011 9:04 PM 02/21/2011 9:44 AM Thi s order reflects the patients wishes and were consensually agreed upon. Care Teams Bead Inspector Relationship Specialty Start Date End Date Neri Yeung MD [address] [place] [address] PCP - General Family Medicine 07/08/21 documented as of this encounter
--- OUTSIDE RECORDS SUMMARY | 2023-05-26 12:09 | External Medical Summary ---
Author Name Unknown Address Unknown Organization K01:[facility] - [address] [facility] [place] [address] Laboratory Report Ordering Provider Test Date Status PHILIPPEERLIN 04/23/2023 14:38:20 Final Observation Date Value Abnormality Reference (Units ) Status BUN 04/23/2023 14:38:20 9 6-20 (mg/dL) Final Creatinine 04/23/2023 14:38:20 1.1 0.6-1.2 (mg/dL) Final Glomerular filtration rate/1.73 sq M.predicted [Volume Rate/Area] in Serum, Plasma or Blood by Creatinine-based formula (CKD-EPI) 04/23/2023 14:38:20 78 >=60 (mL/min) Final eGFR is calculated based on the CKD-EPI 2020 equation SODIUM 04/23/2023 14:38:20 143 135-146 (m mol/L) Final Potassium 04/23/2023 14:38:20 4.1 3.5-5.1 (m mol/L) Final Cl 04/23/2023 14:38:20 105 98-107 (mm ol/L) Final CO2 04/23/2023 14:38:20 26 22-32 (mmo l/L) Final Anion gap 04/23/2023 14:38:20 12 7-15 (mmol /L) Final Glucose 04/23/2023 14:38:20 102 70-120 (mg /dL) Final Albumin 04/23/2023 14:38:20 4.7 3.8-5.0 (g /dL) Final AST (Aspartate aminotransferase) 04/23/2023 14:38:20 22 10-50 (U/L) Fin al Alk Phos 04/23/2023 14:38:20 78 35-130 (U/ L) Final Bilirubin, Total 04/23/2023 14:38:20 1.6 Above high no rmal <=1.2 (mg/dL) Final Calcium 04/23/2023 14:38:20 9.4 8.4-10.2 ( mg/dL) Final Protein 04/23/2023 14:38:20 7.8 6.0-8.3 (g /dL) Final ALT (Alanine aminotransferase) 04/23/2023 14:38:20 22 10-50 (U/L) Dane osman Performing Location [facility] - [facility] [address] [facility] [address]
[2023-05-26] MEDS: PANTOprazole 40 MG TAB PO SCH (12:29)
[2023-05-26] MEDS: SODIUM CHLORIDE 0.9% 1,000 ML IV SCH (13:32)
--- NOTE | 2023-05-26 15:42 | Neurology Consultation ---
Date of Consultation May 26, 2023 Assessment & Plan (1) Acute left ROAD CLEANER stroke: A 53 yo M with Hx of arotic dissection and AV replacement w mechanical valve on Coumadin and ASA 325 mg daily (INR 3.4) with acute left embolic ROAD CLEANER stroke with punctate infarct in the left midbrain near the periaqueductal joshua. Punctate infarct in left midbrain would likely be associated with ipsilateral CN III palsy. Recommend TTE and cardiology consult. Would recommend swtiching ASA 325 mg daily to Plavix 75 mg daily if ok with cardiology. Continue Coumadin INR goal per cardiology although likely near 3 (3-4). SBP goal < 140, DBP< 90 mm hg. Patient will need eye patch. No driving due to acute diplopia /ptosis. Recommend ophthalmology referral. Outpatient follow up with Neuro in [address] Dan on 05/26/23 at 15:29. (2) Ptosis of left eyelid: (3) HTN (hypertension): (4) H/O mechanical aortic valve replacement: (5) Dyslipidemia: (6) History of dissection of thoracic aorta: (7) Aortic valve replaced: History of Present Illness Reason for Consultation: Left eye pstosis, CN III palsy Requesting Physician: Dr. Onur Dan Attending Physician: Onur Dan MD History of Present Illness A 53 yo M with HX of aortic dissection and mechanical heart valve on Coumadin (INR 3.4) and ASA 325 mg daily admitted with left eye ptosis and binoccular diplopia. Onset was on 05/23/22 around 7 pm. No improvement in symptoms. Admitted yesterday for stroke assessement. Was outside window for IV TNK. CTA head and neck Negative. MRI completed today and confirmed stroke in left ROAD CLEANER territory. Allergies Allergy/AdvReac Type Severity Reaction Status Date / Time No Known Allergies Allergy Mild Verified 04/20/22 20:53 Home Medications Medication Instructions Recorded Confirmed Type amlodipine 10 mg tablet 10 mg PO QPM 01/04/21 05/26/23 History aspirin 81 mg capsule 81 mg PO QPM 01/04/21 05/26/23 History lisinopril 40 mg tablet 40 mg PO QPM 01/04/21 05/26/23 History metoprolol succinate 200 mg 200 mg PO QPM 01/04/21 05/26/23 History tablet,extended release 24 hr warfarin 5 mg tablet 5 mg PO DIRECTED 01/04/21 05/26/23 History atorvastatin 20 mg tablet 20 mg PO HS 04/20/22 05/26/23 History pantoprazole 40 mg tablet,delayed 40 mg PO DAILY 04/20/22 05/26/23 History release Patient History Medical History Non compliance w medication regimen "I'm a bad patient" -- admits to not taking prescribed medications "consistently" Poor historian Intracardiac thrombosis hx; approx 5 years ago -- hospitalized at [place] -- says treated with AC therapy History of colon polyps 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 Surgical repair and placement of a 27 mm [place] mechanical valve conduit Dyslipidemia HTN (hypertension) Surgical History (Updated 05/02/23 @ 00:09 by Eleni Eagle) Mechanical heart valve present History of wisdom tooth extraction History of hernia surgery as an History of colonoscopy Family History Mother Colon cancer Father Prostate cancer Social History Smoking Status: Never smoker Second Hand Exposure: No; Do You Dip or Chew Tobacco: No; Tobacco Cessation Education Requested by Patient: No Hx Alcohol Use: Yes Alcohol type: beer Hx Substance Use: Yes Last Used Substance: Days (ago) Last Used Substance Other:: Quit cocaine a long time ago; used marijuana prior to admission and on 04/18 Preferred Language: Tamazight Communication Ability: Effective Global Sales Executive Required: No Beliefs That Will Affect Care: None Current Living Situation: Alone current occupation: Unemployed Other Information That Helps Us Care for You: No Feels Safe at Home: Yes Assistive Devices: Glasses Physical Exam Physical Exam: EXAM: Constitutional: appearance normally developed Face: normocephalic and atraumatic Eyes: left eye ptosis Neck: supple Respiratory: normal effort Abdomen: non distended Skin: no rashes, lesions, or ulcers noted Psychiatric: normal mood and normal affect NEUROLOGIC EXAMINATION: Appearance: no acute distress Orientation: awake, alert and oriented x 3 Mental Status: alert Attention: normal Knowledge: appropriate Language: no aphasia Speech: no dysarthria Cranial Nerves: CN 2 - no visual defect on confrontation and pupils round, equal CN 3, 4, 6 - left eye does not fully adduct, left appears to fully adbduct , right eye appears normal CN 5 - facial sensation intact CN 7 - no facial asymmetry CN 8 - intact hearing CN 9, 10 - palate symmetric CN 11 - good shoulder shrug CN 12 - tongue midline Gait: deferred Coordination: no ataxia with finger to nose testing Sensory: intact and symmetric to light touch SEVERITY SCORES: National [place] [employer] Stroke Scale: 1A. LOC: 0 1B. Question: 0 1C. Commands: 0 2. Gaze: 1 3. Visual Zayas: 0 4. Facial Palsy: 0 5A. Arm Left: 0 5B. Arm Right: 0 6A. Leg Left: 0 6B. Leg Right: 0 7. Ataxia: 0 8. Sensory: 0 9. Aphasia: 0 10. Dysarthria: 0 11. Extinction: 0 Total: 1 Results & Data Vital Signs (Past 12 Hours) Vital Signs Temp Pulse Pulse Resp BP BP Pulse Ox 05/26/23 15:19 72 05/26/23 11:47 36.7 C 66 20 103/64 93 05/26/23 11:14 65 05/26/23 09:42 05/26/23 09:42 36.6 C 16 144/88 H 98 05/26/23 09:03 05/26/23 09:03 36.6 C 65 16 144/88 H 98 05/26/23 08:36 60 16 146/91 H 96 05/26/23 08:30 62 19 140/100 96 05/26/23 08:00 59 L 19 146/91 H 97 05/26/23 07:30 65 19 125/82 97 05/26/23 07:00 67 19 144/105 H 96 05/26/23 06:30 66 17 159/100 H 96 05/26/23 05:30 74 22 140/96 98 05/26/23 05:10 60 05/26/23 05:00 60 19 128/90 95 05/26/23 04:30 61 18 145/87 H 94 05/26/23 04:00 57 L 18 136/87 93 Pulse Ox O2 Del Method O2 Del Method 05/26/23 15:19 05/26/23 11:47 Room Air 05/26/23 11:14 05/26/23 09:42 Room Air 05/26/23 09:42 Room Air 05/26/23 09:03 98 Room Air 05/26/23 09:03 Room Air 05/26/23 08:36 Room Air 05/26/23 08:30 Room Air 05/26/23 08:00 Room Air 05/26/23 07:30 Room Air 05/26/23 07:00 Room Air 05/26/23 06:30 05/26/23 05:30 05/26/23 05:10 05/26/23 05:00 05/26/23 04:30 05/26/23 04:00 Laboratory Results INR 3.4 UA + for marijuana Diagnostic Findings MRI Brain reviewed and my impression is acute embolic appearing infarcts in the left midbrain near the periaqueductal joshua, left cerebellum, left occipital lobes and left temporal lobe.
[2023-05-26] MEDS: WARFARIN SOD 5 MG TAB PO SCH (15:50)
--- NOTE | 2023-05-26 17:27 | Hospitalist Progress Note ---
Date of Service May 26, 2023 Assessment & Plan (1) Ptosis of left eyelid: Plan: Acute CVA 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 Small acute to subacute infarcts within the left cerebellar hemisphere and left occipital lobe, measuring 5 mm. Possible punctate acute to subacute infarct within the posterior left temporal lobe. No mass effect. No evidence for hemorrhagic conversion. 2. 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 No acute intracranial hemorrhage. Patient reports he tends to miss his taking his Coumadin and going to the Coumadin clinic due to transportation issues Discussed with neurology service Recommend consultation with cardiology service May need to change aspirin to Plavix INR 3.4 Resume usual Coumadin INR daily Hx Marfan syndrome/collagen vascular disease as per records hx PVD, aortic aneurysm/dissection status post surgery, mechanical AVR on Coumadin, INR therapeutic hypertension -- On the lower side, hold all BP medications to avoid hypotension in light of acute CVA, IV fluids ordered hyperlipidemia on statin Rx prediabetes, hemoglobin A1c of 5.10 Jul 2023 GERD, on PPI history HCV antibody possibility, never required treatment as per patient mood disorder, stable past tobacco/cocaine abuse DVT prophylaxis. Coumadin INR goal between 2.5-3.5, history mechanical AVR Full code plan of care discussed with patient in detail and at length all questions answered he is understanding, agreeable, comfortable with the plan of care Admission and Anticipated Discharge Date Admission Date: May 26, 2023 Subjective Follow-up for acute CVA, etc. Seen resting in bed, comfortable, not in distress Still having blurring of vision, left eye ptosis No other focal neurologic symptoms Denies headache, dizziness, chest pain, shortness of breath, palpitations No other new symptom Review of Systems Review of Systems: all noted and negative except for above Physical Exam Physical Exam: General- oriented x 3, not in distress, speaks in sentences with no effort or accessory muscle use Eyes- anicteric Neck- no JVD Lungs- clear breath sounds bilaterally, no rales/wheezes Heart- normal rate, regular rhythm; no murmurs Abdomen- normal bowel sounds, nondistended, soft, nontender Extremities- no pretibial edema, no calf tenderness Neuro- alert, oriented x 3; positive ptosis, positive blurring of vision, otherwise other cranial nerves grossly intact no gross focal neurologic deficits Skin- warm & dry Results & Data Results & Data Vital Signs (Past 12 Hours) Vital Signs Temp Pulse Pulse Resp BP BP Pulse Ox 05/26/23 15:52 36.8 C 63 18 132/82 97 05/26/23 15:19 72 05/26/23 11:47 36.7 C 66 20 103/64 93 05/26/23 11:14 65 05/26/23 09:42 05/26/23 09:42 36.6 C 16 144/88 H 98 05/26/23 09:03 05/26/23 09:03 36.6 C 65 16 144/88 H 98 05/26/23 08:36 60 16 146/91 H 96 05/26/23 08:30 62 19 140/100 96 05/26/23 08:00 59 L 19 146/91 H 97 05/26/23 07:30 65 19 125/82 97 05/26/23 07:00 67 19 144/105 H 96 05/26/23 06:30 66 17 159/100 H 96 05/26/23 05:30 74 22 140/96 98 Pulse Ox O2 Del Method O2 Del Method 05/26/23 15:52 Room Air 05/26/23 15:19 05/26/23 11:47 Room Air 05/26/23 11:14 05/26/23 09:42 Room Air 05/26/23 09:42 Room Air 05/26/23 09:03 98 Room Air 05/26/23 09:03 Room Air 05/26/23 08:36 Room Air 05/26/23 08:30 Room Air 05/26/23 08:00 Room Air 05/26/23 07:30 Room Air 05/26/23 07:00 Room Air 05/26/23 06:30 05/26/23 05:30 all noted and reviewed including below
[2023-05-26] MEDS: ASPIRIN 81 MG ECTAB PO SCH (20:27)
[2023-05-26] MEDS: ATORVASTATIN 20 MG TAB PO SCH (20:27)
[2023-05-26] MEDS: METOPROLOL SUCC 25MG EXT REL TAB PO SCH (20:27)
[2023-05-27 06:50] LABS: Basophils # (auto) 0.03 K/uL (0.00-0.20); Basophils % (auto) 0.6 %; Eosinophils % (auto) 2.1 %; Hematocrit (blood only) 41.5 % (42.0-52.0); Hemoglobin 14.3 g/dl (14.0-18.0); Immature Granulocytes # (auto) 0.01 K/uL (0.01-0.20); Immature Granulocytes % (auto) 0.2 %; Lymphocytes # (auto) 1.95 K/uL (1.20-3.40); Lymphocytes % (auto) 40.7 %; Mean Corpuscular Hemoglobin 29.9 pg (25.0-34.0); Mean Corpuscular Hgb Conc 34.5 g/dL (32.0-36.0); Mean Corpuscular Volume 86.6 fL (80.0-100.0); Mean Platelet Volume 11.1 fL (9.4-12.4); Monocytes # (auto) 0.38 K/uL (0.11-0.59); Monocytes % (auto) 7.9 %; Neutrophils # (auto) 2.32 K/uL (1.40-6.50); Neutrophils % (auto) 48.5 %; Platelet Count 185 K/uL (130-400); RDW Coefficient of Variation 13.1 % (11.5-14.5); RDW Standard Deviation 41.2 fL (36.4-46.3); Red Blood Count 4.79 M/uL (4.70-6.10); White Blood Count 4.79 K/ul (4.8-10.8)
[2023-05-27 07:10] LABS: Anion Gap 5 (3-11); BUN Creatinine Ratio 12.9 (10-20); Blood Urea Nitrogen 12 mg/dl (6-23); C Reactive Protein < 0.50 mg/dl (0-0.5); Calcium 8.2 mg/dl (8.6-10.3); Carbon Dioxide 24 mmol/L (21-32); Chloride 111 mmol/L (98-107); Chol HDL Ratio 3.8 (0-5); Cholesterol 144 mg/dl (0-200); Creatinine Clr Calc Pharmacy 106.8 ml/min; Est GFR (African American) 108.2 ml/min; Est GFR (Non-African American) 93.4 ml/min; Glucose 97 mg/dl (70-99(Fasting)); HDL Cholesterol 38 mg/dl; LDL Cholesterol Calculated 85 mg/dl; Potassium 3.7 mmol/L (3.5-5.1); Sodium 140 mmol/L (136-145); Triglycerides 105 mg/dl (0-150); VLDL Cholesterol 21 mg/dl (0-30)
[2023-05-27 07:16] LABS: Estimated Average Glucose 123 mg/dl; Hemoglobin A1C 5.9 % (4.5-5.6)
[2023-05-27 07:18] LABS: INR 3.5 (0.9-1.1); Prothrombin Time 35.8 Seconds (9.0-12.0)
--- NOTE | 2023-05-27 09:21 | Cardiology Consultation ---
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 Although INR was therapeutic at 3.4 on presentation (compliant with medications for 7 to 10 days prior to arrival) patient has been significantly noncompliant with home medications for at least the last 6 months. I wonder if the patient is not having asymptomatic paroxysmal atrial fibrillation. Recommendations: 1. Compliance with medications urged/discussed 2. Agree with switching aspirin to clopidogrel 75 mg/day 3. INR goal 2.5-3.5 4. Explore home INR monitoring 5. SBP goal less than 140 mmHg 6. LDL goal less than 70 mg/deciliter 7. Outpatient cardiology follow-up with Dr. Mcclain I spent a total of 65 minutes on the date of service in preparation, delivery, and documentation of the care provided to this patient excluding any time spent in the performance of separately billed services. This visit was a split-shared visit with the substantive portion of the medical decision making performed by the supervising wharf tender/billing provider. Supervising Physician Co-Signing Physician Notes I have reviewed the advanced practitioner's documentation on the date of service referenced in note, and I agree with, and take responsibility for the plan of care. 53-year-old male with mechanical aortic aortic valve 27 mm [place]h valve, TAVR thoracic arctic dissection extending from aortic root iliac bifurcation underwent descending thoracic aorta graft Presents with left eye ptosis diplopia, MRI of the brain shows small acute to subacute infarcts within the left cerebellar hemisphere and left occipital lobe, acute to subacute infarct of the posterior left temporal lobe. And several old infarct within the cerebellar hemispheres, neck and head CTA head no significant findings noted Patient reports that he has been noncompliant with his Coumadin. the Past 1 week he started having symptoms so has been taking his medications regularly. Echo ; mechanical aortic valve is not well-visualized gradients are within normal limits. in view of multiple infarcts will plan FOr TANMAY I spent a total of [20] minutes coordinating, documenting, and providing care for this patient excluding time spent in the performance of separately billed services or time spent by another provider. History of Present Illness Reason for Consultation: Acute CVA, likely embolic. Mechanical aortic valve Requesting Physician: Onur Dan MD Attending Physician: Onur Dan MD History of Present Illness Mr. Juan Hamilton is a 53-year-old male who was admitted to [facility] with binocular diplopia and left eye ptosis starting on May 24, [address] of the head and neck were negative. MRI confirmed left PHYTOPATHOLOGY TEACHER territory CVA. Patient notes significant noncompliance with all medications though did, over the past week and a half, resume aspirin as well as Coumadin anticoagulation. Transportation to the clinic is an issue as well. INR on presentation was 3.4. He does have a history of transient postoperative atrial fibrillation and a moderately enlarged left atrium however EKG and telemetry monitoring throughout hospitalization demonstrated sinus throughout. Resting echocardiography revealed normal LV systolic function, EF 60 to 65%, with no mitral regurgitation. Mechanical valve in the aortic position not well visualized but with normal gradients and no interatrial shunt. 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 While awaiting surgical repair, patient suffered an acute type A thoracic aortic dissection that extended from the aortic root to the iliac bifurcation, undergoing emergent repair by Dr. Velez with placement of a [address] [place]uresh mechanical valve conduit on 02/12/2011. Unfortunately overtime patient developed recurrent expanding 6.5 cm arch aneurysm and dissection extending to the iliacs. Status post 05/11/20 replacement of the descending thoracic aorta with a 30 mm tube graft, right femoral-femoral cardiopulmonary bypass. Transient postoperative atrial fibrillation observed. Preoperative diagnostic cardiac catheterization on March 18, 2020 demonstrated mild luminal irregularities only. Hypertension Family History: Father with prostate cancer. Mother with colon cancer. Social History: No cigarettes. No smokeless tobacco. + Marijuana from the dispensary. No "powder" for many years. Allergies Allergy/AdvReac Type Severity Reaction Status Date / Time No Known Allergies Allergy Mild Verified 04/20/22 20:53 Home Medications Medication Instructions Recorded Confirmed Type amlodipine 10 mg tablet 10 mg PO QPM 01/04/21 05/26/23 History aspirin 81 mg capsule 81 mg PO QPM 01/04/21 05/26/23 History lisinopril 40 mg tablet 40 mg PO QPM 01/04/21 05/26/23 History metoprolol succinate 200 mg 200 mg PO QPM 01/04/21 05/26/23 History tablet,extended release 24 hr warfarin 5 mg tablet 5 mg PO DIRECTED 01/04/21 05/26/23 History atorvastatin 20 mg tablet 20 mg PO HS 04/20/22 05/26/23 History pantoprazole 40 mg tablet,delayed 40 mg PO DAILY 04/20/22 05/26/23 History release Patient History Medical History Non compliance w medication regimen "I'm a bad patient" -- admits to not taking prescribed medications "consistently" Poor historian Intracardiac thrombosis hx; approx 5 years ago -- hospitalized at [facility] -- says treated with AC therapy History of colon polyps 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 Surgical repair and placement of a 27 mm [place] Suresh mechanical valve conduit Dyslipidemia HTN (hypertension) Surgical History Mechanical heart valve present History of wisdom tooth extraction History of hernia surgery as an infant History of colonoscopy Family History Mother Colon cancer Father Prostate cancer Social History Smoking Status: Never smoker Second Hand Exposure: No; Do You Dip or Chew Tobacco: No; Tobacco Cessation Education Requested by Patient: No Hx Alcohol Use: Yes Alcohol type: beer Hx Substance Use: Yes Last Used Substance: Days (ago) Last Used Substance Other:: Quit cocaine a long time ago; used marijuana prior to admission and on 04/18 Preferred Language: Kazakh Communication Ability: Effective Tool Storage Attendant Required: No Beliefs That Will Affect Care: None Current Living Situation: Alone current occupation: Unemployed Other Information That Helps Us Care for You: No Feels Safe at Home: Yes Assistive Devices: Glasses Review of Systems Review of Systems: Complete review of systems is otherwise as stated above, negative, or noncontributory Physical Exam Physical Exam: General: A&Ox3. NAD. HENT: Normocephalic. Atraumatic. Eyes: Left eye ptosis . Conjunctiva pink, sclera clear. Neck: No carotid bruits. No JVD. No HJR. Heart: RRR. Person mechanical valve sound. Soft systolic murmur heard at the right upper sternal border. No rub. PMI is nondisplaced. Lungs: Clear to auscultation. Abdomen: +BS. Soft. Nontender. No masses or organomegaly. Extremities: No clubbing, cyanosis, or edema. Limited neurological examination is without focal deficits. Pulses: radial=2/4, posterior tibial=2/4. Results & Data Vital Signs (Past 12 Hours) Vital Signs Temp Pulse Pulse Resp BP Pulse Ox O2 Del Method 05/27/23 08:14 36.6 C 71 18 156/91 H 98 Room Air 05/27/23 03:53 37 C 74 18 124/79 95 Room Air 05/26/23 23:18 36.9 C 71 16 129/83 93 Room Air 05/26/23 21:56 65 Laboratory Results Coagulation 05/27/23 Range/Units 06:18 PT 35.8 H (9.0-12.0) Seconds Lipids 05/27/23 Range/Units 06:18 Triglycerides 105 (0-150) mg/dl Cholesterol 144 (0-200) mg/dl HDL Cholesterol 38 mg/dl Cholesterol/HDL Ratio 3.8 (0-5) CBC 05/27/23 Range/Units 06:18 WBC 4.79 L (4.8-10.8) K/ul RBC 4.79 (4.70-6.10) M/uL Hgb 14.3 (14.0-18.0) g/dl Hct 41.5 L (42.0-52.0) % Plt Count 185 (130-400) K/uL Neut # (Auto) 2.32 (1.40-6.50) K/uL Lymph # (Auto) 1.95 (1.20-3.40) K/uL [place] # (Auto) 0.38 (0.11-0.59) K/uL Eos # (Auto) 0.10 (0.00-0.50) K/uL Baso # (Auto) 0.03 (0.00-0.20) K/uL Comprehensive Metabolic Panel 05/27/23 Range/Units 06:18 Sodium 140 (136-145) mmol/L Potassium 3.7 (3.5-5.1) mmol/L Chloride 111 H (98-107) mmol/L Carbon Dioxide 24 (21-32) mmol/L BUN 12 (6-23) mg/dl Creatinine 0.93 (0.6-1.4) mg/dl Glucose 97 (70-99(Fasting)) mg/dl Calcium 8.2 L (8.6-10.3) mg/dl Intake and Output 05/26/23 05/27/23 05/27/23 22:59 06:59 14:59 Intake Total 868.75 / 3318.75 1440 / 3318.75 Output Total Balance 867.75 / 3317.75 1440 / 3317.75 Intake: IV 868.75 / 2878.75 1000 / 2878.75 Sodium Chloride 0.9% 1,000 ml @ 868.75 / 1868.75 1000 / 1868.75 125 mls/hr IV .Q8H [facility] Rx#: [id number] Oral 440 / 440 Output: # Bowel Movements Other: Weight 92 kg Weight Measurement Method Built in [facility]
--- NOTE | 2023-05-27 12:43 | Hospitalist Progress Note ---
Date of Service May 27, 2023 Assessment & Plan (1) Ptosis of left eyelid: Plan: Acute CVA 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 Small acute to subacute infarcts within the left cerebellar hemisphere and left occipital lobe, measuring 5 mm. Possible punctate acute to subacute infarct within the posterior left temporal lobe. No mass effect. No evidence for hemorrhagic conversion. 2. 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 No acute intracranial hemorrhage. Patient reports he tends to miss his taking his Coumadin and going to the Coumadin clinic due to transportation issues Discussed with neurology service Recommend consultation with cardiology service May need to change aspirin to Plavix INR 3.4 Resume usual Coumadin INR daily 05/26 red leader consulted awaiting final recommendations will need outpatient Opthalmology eval SBP goal < 140, DBP< 90 mm hg. Patient will need eye patch. No driving due to acute diplopia /ptosis. Recommend ophthalmology referral. Outpatient follow up with Neuro in 8 weeks. Hx Marfan syndrome/collagen vascular disease as per records hx PVD, aortic aneurysm/dissection status post surgery, mechanical AVR on Coumadin, INR therapeutic hypertension -- resume Amlodipine monitor BP hyperlipidemia on statin Rx prediabetes, hemoglobin A1c of 5.10 Jul 2023 GERD, on PPI history HCV antibody possibility, never required treatment as per patient mood disorder, stable past tobacco/cocaine abuse DVT prophylaxis. Coumadin INR goal between 2.5-3.5, history mechanical AVR Full code plan of care discussed with patient in detail and at length all questions answered he is understanding, agreeable, comfortable with the plan of care Admission and Anticipated Discharge Date Admission Date: May 26, 2023 Subjective ff up for acute CVA, etc seen resting in bed, comfortable in good spirits states blurring of vision is the same- eye patch helping still has L eyelid drooping no other new focal neurologic symptoms no chest pain, dyspnea, palpitations, dizziness no other new symptoms patient states he is ready and would like to go home today Review of Systems Review of Systems: all noted and negative except for above Physical Exam Physical Exam: General- oriented x 3, not in distress, speaks in sentences with no effort or accessory muscle use Eyes- anicteric (+) L eye ptosis Neck- no JVD Lungs- clear breath sounds bilaterally, no crackles/wheezing Heart- normal rate, regular rhythm; no murmurs Abdomen- normal bowel sounds, nondistended, soft, no tenderness Extremities- no pretibial edema, no calf tenderness Neuro- alert, oriented x 3; no new gross focal neurologic deficits Skin- warm & dry Results & Data Results & Data Vital Signs (Past 12 Hours) Vital Signs Temp Pulse Pulse Resp BP Pulse Ox O2 Del Method 05/27/23 12:09 36.6 C 66 18 160/82 H 96 Room Air 05/27/23 09:00 64 05/27/23 08:14 36.6 C 71 18 156/91 H 98 Room Air 05/27/23 03:53 37 C 74 18 124/79 95 Room Air all noted and reviewed including below
[2023-05-27] MEDS: amLODIPine BESYLATE 5 MG TAB PO ONE (14:59)
[2023-05-27 15:27] LABS: Marijuana Quant, GCMS Urine 435 ng/mL (<5)
[2023-05-27] MEDS: WARFARIN SOD 10 MG TAB PO SCH (18:07)
[2023-05-27] MEDS: PNEUMOCOCCAL VACCINE (PCV20) 20-VAL CONJ-DIP CRM/PF 0.5 ML SYR IM ONE (18:18)
[2023-05-28 07:30] LABS: Basophils # (auto) 0.03 K/uL (0.00-0.20); Basophils % (auto) 0.5 %; Eosinophils # (auto) 0.12 K/uL (0.00-0.50); Eosinophils % (auto) 2.1 %; Hematocrit (blood only) 44.4 % (42.0-52.0); Immature Granulocytes # (auto) 0.01 K/uL (0.01-0.20); Immature Granulocytes % (auto) 0.2 %; Lymphocytes # (auto) 1.72 K/uL (1.20-3.40); Lymphocytes % (auto) 29.8 %; Mean Corpuscular Hemoglobin 29.3 pg (25.0-34.0); Mean Corpuscular Hgb Conc 33.8 g/dL (32.0-36.0); Mean Corpuscular Volume 86.7 fL (80.0-100.0); Mean Platelet Volume 11.1 fL (9.4-12.4); Monocytes # (auto) 0.47 K/uL (0.11-0.59); Monocytes % (auto) 8.1 %; Neutrophils # (auto) 3.42 K/uL (1.40-6.50); Neutrophils % (auto) 59.3 %; Platelet Count 180 K/uL (130-400); RDW Standard Deviation 40.7 fL (36.4-46.3); Red Blood Count 5.12 M/uL (4.70-6.10); White Blood Count 5.77 K/ul (4.8-10.8)
[2023-05-28 07:51] LABS: BUN Creatinine Ratio 9.3 (10-20); Calcium 8.8 mg/dl (8.6-10.3); Creatinine Clr Calc Pharmacy 92.8 ml/min; Est GFR (African American) 91.4 ml/min; Est GFR (Non-African American) 78.8 ml/min; Potassium 3.4 mmol/L (3.5-5.1)
[2023-05-28] MEDS: POTASSIUM CHLORIDE CRTAB 20 MEQ TABCR PO STA (08:40)
[2023-05-28] MEDS: amLODIPine BESYLATE 5 MG TAB PO SCH (08:57)
--- NOTE | 2023-05-28 09:12 | Pharmacy Report ---
- Date of Service May 28, 2023 - Pharmacy CVA/TIA Medication Review Medications to Prevent Stroke handout has been added to the patients discharge packet. Antiplatelet(s) * Clopidogrel 75 mg PO daily Cholesterol * Currently receiving moderate-intensity statin, atorvastatin 20 mg PO daily * Plan is to discharge on high-intensity atorvastatin 40 mg PO daily DVT Prophylaxis * On warfarin (see below) Therapeutic Anticoagulation * On warfarin for mechanical aortic valve replacement Type 2 Diabetes * Patient does not have T2DM
[2023-05-28 09:13] LABS: INR 3.6 (0.9-1.1); Prothrombin Time 36.3 Seconds (9.0-12.0)
[2023-05-28] MEDS: CLOPIDOGREL BISULFATE 75 MG TAB PO SCH (10:08)
--- NOTE | 2023-05-28 11:50 | Cardiology Progress Note ---
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 Although INR was therapeutic at 3.4 on presentation (compliant with medications for 7 to 10 days prior to arrival) patient has been significantly noncompliant with home medications for at least the last 6 months. I wonder if the patient is not having asymptomatic paroxysmal atrial fibrillation. Recommendations: 1. Compliance with medications urged/discussed 2. Agree with switching aspirin to clopidogrel 75 mg/day 3. INR goal 2.5-3.5 4. Explore home INR monitoring 5. SBP goal less than 140 mmHg 6. LDL goal less than 70 mg/deciliter 7. Outpatient cardiology follow-up with Dr. Mcclain Patient clinically stable. Presenting with acute stroke secondary to lapse in medical therapies. Patient admits significant departure from anticoagulation regimen Echocardiogram without valve dysfunction Plan as above no indications for TANMAY or further imaging at this time Will need rehab for neurologic deficits Discussed care with Dr. Mcclain to relate decision making I spent a total of 35 minutes on the date of service in preparation, delivery, and documentation of the care provided to this patient excluding any time spent in the performance of separately billed services. This visit was a split-shared visit with the substantive portion of the medical decision making performed by the supervising manager garage/billing provider. Admission and Anticipated Discharge Date Admission Date: May 26, 2023 Subjective Patient seen and examined, chart, medications, telemetry reviewed Prior echocardiograms reviewed Patient ambulatory in the hallway only difficulties are mild gait instability due to visual issues. Wearing eye patch Anticoagulation therapeutic Review of Systems Review of Systems: All systems reviewed & are unremarkable except as noted in Subjective Physical Exam Constitutional: no acute distress ENMT: external ear and nose normal, oropharynx normal Neck: trachea midline, no thyromegaly Respiratory: normal respiratory effort, lungs clear to auscultation Cardiovascular: Rate/Rhythm: regular rate and regular rhythm Heart Sounds: + murmur (Grade 2 or 6 systolic murmur with crisp mechanical valve sounds) Vessels: no JVD Extremities: no edema Gastrointestinal (Abdomen): normal bowel sounds, soft, nontender, no hepatosplenomegaly Musculoskeletal: no cyanosis or clubbing, extremities motor strength 5/5 Results & Data Vital Signs (Past 12 Hours) Vital Signs Temp Pulse Pulse Resp BP BP Pulse Ox 05/28/23 10:56 36.6 C 72 16 154/88 H 97 05/28/23 07:43 78 05/28/23 07:00 36.8 C 78 14 137/84 99 05/28/23 03:49 36.8 C 75 18 154/87 H 96 O2 Del Method 05/28/23 10:56 Room Air 05/28/23 07:43 05/28/23 07:00 Room Air 05/28/23 03:49 Room Air Laboratory Results Laboratory Results - last 24 hr 05/26/23 05/28/23 05/28/23 02:09 07:02 08:20 WBC 5.77 RBC 5.12 Hgb 15.0 Hct 44.4 MCV 86.7 MCH 29.3 MCHC 33.8 RDW Std Deviation 40.7 RDW Coeff of Eyal 13.0 Plt Count 180 MPV 11.1 Immature Gran % (Auto) 0.2 Neut % (Auto) 59.3 Lymph % (Auto) 29.8 [place] % (Auto) 8.1 Eos % (Auto) 2.1 Baso % (Auto) 0.5 Neut # (Auto) 3.42 Lymph # (Auto) 1.72 [place] # (Auto) 0.47 Eos # (Auto) 0.12 Baso # (Auto) 0.03 Immature Gran # (Auto) 0.01 PT 36.3 H INR 3.6 H Sodium 140 Potassium 3.4 L Chloride 107 Carbon Dioxide 26 Anion Gap 7 BUN 10 Creatinine 1.07 Est Cr Clr Drug Dosing 92.8 Est GFR ( Amer) 91.4 Est GFR (Non-Af Amer) 78.8 BUN/Creatinine Ratio 9.3 L Glucose 101 H Calcium 8.8 U Marijuana THC Carboxy 435 H Drug Screen Comment SEE NOTE
[2023-05-28] MEDS ORDERED: STROKE PATIENT DISCHARGE STA (13:34)
--- NOTE | 2023-05-28 13:36 | Discharge Summary ---
Discharge Summary Date of Service May 28, 2023 delayed entry date of service noted above Notes For Next Care Provider Medication Changes From Visit YOUR NEW MEDICATIONS INCLUDE: Plavix-for stroke prevention Stop taking aspirin. Increase simvastatin from 20 mg to 40 mg p.o. daily Admission HPI Per Admitting Provider History obtained from patient and records. Medical history significant for PVD, aortic aneurysm/dissection status post surgery, mechanical AVR on Coumadin, hypertension, hyperlipidemia, Marfan syndrome/collagen vascular disease as per records, prediabetes, GERD, history HCV, mood disorder, presbyopia as per records, past tobacco/cocaine abuse. Last confinement April 2022 for atypical chest pain. Stress echo negative for inducible ischemia. Few weeks ago patient noted left lower extremity numbness which later involved the upper extremity as per patient. No unusual back/neck pain or recollection of trauma. Patient seen at PCPs office last month. Neuropathy workup recommended. 2 days ago, patient noted double vision both eyes more persistent than usual. Left-sided headache symptoms. Patient woke up yesterday and noted droopy left eye. No arm or leg weakness or slurred speech. No chest pain, no SOB. Compliant with home medications. Patient gives history of intermittent double vision both eyes since aneurysm surgery from years ago. Usually precipitated by fatigue and sleepiness; resolved with rest. Droopy left eye is a new problem as per patient. Patient brought by friend to the ER. Medical History as above Surgical History : Hernia repair, dental surgery, sternal debridement, mechanical AVR, thoracoabdominal aortic aneurysm repair with graft Family History : Stroke, prostate cancer, colon cancer Personal/Social history : Past tobacco abuse, occasional EtOH intake, disabled Admission Exam Per Admitting Provider GENERAL: Comfortable, pleasant, no respiratory distress SKIN: Normal color, warm HEENT: [place] palpebral conjunctivae, left ptosis, moist buccal mucosa NECK : Supple, no tenderness CHEST : CTA, no tenderness HEART : RRR, mechanical murmur ABDOMEN: Some distention, nontender EXTREMITIES : No LE swelling/tenderness, no other conspicuous deformities noted NEUROLOGIC : Coherent, left ptosis, limited adduction left eye, no facial droop, MMTs BUE 4/5, BLE 4/5, gait and stance not assessed Principal Dx & Hospital Course #1 = Principal Diagnosis (1) Ptosis of left eyelid: Acute CVA 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 Small acute to subacute infarcts within the left cerebellar hemisphere and left occipital lobe, measuring 5 mm. Possible punctate acute to subacute infarct within the posterior left temporal lobe. No mass effect. No evidence for hemorrhagic conversion. 2. 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 No acute intracranial hemorrhage. Patient reports he tends to miss his taking his Coumadin and going to the Coumadin clinic due to transportation issues Discussed with neurology service Recommend consultation with cardiology service May need to change aspirin to Plavix INR 3.4 Resume usual Coumadin INR daily 05/26 landscaping supervisor consulted awaiting final recommendations will need outpatient Opthalmology eval SBP goal < 140, DBP< 90 mm hg. Patient will need eye patch. No driving due to acute diplopia /ptosis. Recommend ophthalmology referral. Outpatient follow up with Neuro in 8 weeks. 05/27 Cardiology service does not feel TANMAY is indicated at this point Agree with transitioning from aspirin to Plavix Will need to ensure patient's INR is between 2.5-3.5 Discussed with patient in detail and at length the importance of having therapeutic INR to prevent stroke and other complications Patient verbalized understanding and agreement Will check with [facility] if home INR checks could be feasible for the patient Medical assistance enrollment in process, patient followed up with his sliver cutter who are assisting him for this, this should facilitate follow-up as an transportation for the Follow-up with neurologist in 2 to 3 weeks Follow-up with landscaping supervisor in 2 to 3 weeks Please refer to j2ee java developer Hx Marfan syndrome/collagen vascular disease as per records hx PVD, aortic aneurysm/dissection status post surgery, mechanical AVR on Coumadin, INR therapeutic hypertension -- resume Amlodipine and lisinopril monitor BP hyperlipidemia on statin Rx --Lipitor increased to 40 mg daily prediabetes, hemoglobin A1c of 5.10 Jul 2023 --A1c 5.9 GERD, on PPI history HCV antibody possibility, never required treatment as per patient mood disorder, stable past tobacco/cocaine abuse DVT prophylaxis. Coumadin INR goal between 2.5-3.5, history mechanical AVR Full code plan of care discussed with patient in detail and at length all questions answered he is understanding, agreeable, comfortable with the plan of care Discharge Exam General- oriented x 3, not in distress, speaks in sentences with no effort or accessory muscle use Eyes- anicteric Neck- no JVD Lungs- clear breath sounds bilaterally, no rales/wheezes Heart- normal rate, regular rhythm; no murmurs Abdomen- normal bowel sounds, nondistended, soft, nontender Extremities- no pretibial edema, no calf tenderness Neuro- alert, oriented x 3; (+) L eye ptosis, no other new gross focal neurologic deficits Skin- warm & dry Updated Medication List Medication Instructions Recorded Confirmed Type amlodipine 10 mg tablet 10 mg PO QPM 01/04/21 05/26/23 History lisinopril 40 mg tablet 40 mg PO QPM 01/04/21 05/26/23 History metoprolol succinate 200 mg 200 mg PO QPM 01/04/21 05/26/23 History tablet,extended release 24 hr warfarin 5 mg tablet 5 mg PO DIRECTED 01/04/21 05/26/23 History pantoprazole 40 mg tablet,delayed 40 mg PO DAILY 04/20/22 05/26/23 History release atorvastatin 40 mg tablet 40 mg PO HS 30 days #30 tabs 05/28/23 Rx clopidogrel 75 mg tablet 75 mg PO DAILY 30 days #30 tabs 05/28/23 Rx Hospital Stay Data Consultations 05/26/23 05:16 ED Decision to Admit Stat 05/26/23 05:57 Consult Neurology Routine 05/26/23 15:34 Consult Cardiology Routine Diagnostic Imagining Performed Laboratory Results WBC 5.77 K/ul (4.8-10.8) 05/28/23 07:02 RBC 5.12 M/uL (4.70-6.10) 05/28/23 07:02 Hgb 15.0 g/dl (14.0-18.0) 05/28/23 07:02 Hct 44.4 % (42.0-52.0) 05/28/23 07:02 MCV 86.7 fL (80.0-100.0) 05/28/23 07:02 MCH 29.3 pg (25.0-34.0) 05/28/23 07:02 MCHC 33.8 g/dL (32.0-36.0) 05/28/23 07:02 RDW Std Deviation 40.7 fL (36.4-46.3) 05/28/23 07:02 RDW Coeff of Eyal 13.0 % (11.5-14.5) 05/28/23 07:02 Plt Count 180 K/uL (130-400) 05/28/23 07:02 MPV 11.1 fL (9.4-12.4) 05/28/23 07:02 Immature Gran % (Auto) 0.2 % 05/28/23 07:02 Neut % (Auto) 59.3 % 05/28/23 07:02 Lymph % (Auto) 29.8 % 05/28/23 07:02 [place] % (Auto) 8.1 % 05/28/23 07:02 Eos % (Auto) 2.1 % 05/28/23 07:02 Baso % (Auto) 0.5 % 05/28/23 07:02 Neut # (Auto) 3.42 K/uL (1.40-6.50) 05/28/23 07:02 Lymph # (Auto) 1.72 K/uL (1.20-3.40) 05/28/23 07:02 [place] # (Auto) 0.47 K/uL (0.11-0.59) 05/28/23 07:02 Eos # (Auto) 0.12 K/uL (0.00-0.50) 05/28/23 07:02 Baso # (Auto) 0.03 K/uL (0.00-0.20) 05/28/23 07:02 Immature Gran # (Auto) 0.01 K/uL (0.01-0.20) 05/28/23 07:02 ESR 9 mm/hr (0-20) 05/27/23 06:18 PT 36.3 Seconds (9.0-12.0) H 05/28/23 08:20 INR 3.6 (0.9-1.1) H 05/28/23 08:20 APTT 46 Seconds (21-31) H 05/26/23 00:00 PTT Ratio 1.6 05/26/23 00:00 Sodium 140 mmol/L (136-145) 05/28/23 07:02 Potassium 3.4 mmol/L (3.5-5.1) L 05/28/23 07:02 Chloride 107 mmol/L (98-107) 05/28/23 07:02 Carbon Dioxide 26 mmol/L (21-32) 05/28/23 07:02 Anion Gap 7 (3-11) 05/28/23 07:02 BUN 10 mg/dl (6-23) 05/28/23 07:02 Creatinine 1.07 mg/dl (0.6-1.4) 05/28/23 07:02 Est Cr Clr Drug Dosing 92.8 ml/min 05/28/23 07:02 Est GFR ( Amer) 91.4 ml/min 05/28/23 07:02 Est GFR (Non-Af Amer) 78.8 ml/min 05/28/23 07:02 BUN/Creatinine Ratio 9.3 (10-20) L 05/28/23 07:02 Glucose 101 mg/dl (70-99(Fasting)) H 05/28/23 07:02 Estimat Average Glucose 123 mg/dl 05/27/23 06:18 Hemoglobin A1c 5.9 % (4.5-5.6) H 05/27/23 06:18 Calcium 8.8 mg/dl (8.6-10.3) 05/28/23 07:02 Magnesium 2.1 mg/dl (1.7-2.4) 05/26/23 00:00 Total Bilirubin 1.6 mg/dl (0.2-1.0) H 05/26/23 00:00 AST 23 U/L (13-39) 05/26/23 00:00 ALT 39 U/L (7-52) 05/26/23 00:00 Alkaline Phosphatase 68 U/L (34-104) 05/26/23 00:00 Troponin I High Sens 9.2 pg/ml (0-20) 05/26/23 00:00 C-Reactive Protein < 0.50 mg/dl (0-0.5) 05/27/23 06:18 Total Protein 7.9 gm/dl (6.0-8.3) 05/26/23 00:00 Albumin 4.3 gm/dl (3.4-5.0) 05/26/23 00:00 Globulin 3.6 gm/dl (2.5-4.0) 05/26/23 00:00 Albumin/Globulin Ratio 1.2 (0.9-2) 05/26/23 00:00 Triglycerides 105 mg/dl (0-150) 05/27/23 06:18 Cholesterol 144 mg/dl (0-200) 05/27/23 06:18 LDL Cholesterol, Calc 85 mg/dl 05/27/23 06:18 VLDL Cholesterol, Calc 21 mg/dl (0-30) 05/27/23 06:18 HDL Cholesterol 38 mg/dl 05/27/23 06:18 Cholesterol/HDL Ratio 3.8 (0-5) 05/27/23 06:18 Urine Color Yellow 05/26/23 02:09 Urine Appearance Clear (Clear) 05/26/23 02:09 Urine pH 8.0 (4.5-7.5) H 05/26/23 02:09 Ur Specific [place] 1.030 (1.000-1.030) 05/26/23 02:09 Urine Protein Negative (Negative) 05/26/23 02:09 Urine Glucose (UA) Negative (Negative) 05/26/23 02:09 Urine Ketones Negative (Negative) 05/26/23 02:09 Urine Blood Negative (Negative) 05/26/23 02:09 Urine Nitrite Negative (Negative) 05/26/23 02:09 Urine Bilirubin Negative (Negative) 05/26/23 02:09 Urine Urobilinogen Negative (Negative) 05/26/23 02:09 Ur Leukocyte Esterase Negative (Negative) 05/26/23 02:09 Urine Opiates Screen Neg (Neg) 05/26/23 02:09 Ur Methadone, Qual Neg (Neg) 05/26/23 02:09 Urine Barbiturates Neg (Neg) 05/26/23 02:09 Ur Phencyclidine (PCP) Neg (Neg) 05/26/23 02:09 U Amphetamin/Meth Scrn Neg (Neg) 05/26/23 02:09 MDMA (Ecstasy) Screen Neg (Neg) 05/26/23 02:09 U Benzodiazepines Scrn Neg (Neg) 05/26/23 02:09 Ur Cocaine Metabolite Neg (Neg) 05/26/23 02:09 U Marijuana (THC) Screen Pos (Neg) H 05/26/23 02:09 U Marijuana THC Carboxy 435 ng/mL (<5) H 05/26/23 02:09 Drug Screen Comment SEE NOTE 05/26/23 02:09 Impressions Chest CTA 05/26/23 00:07 Exam(s): CTA CHEST W/WO Contrast IV Amt: 118 ML EXAM: CT Angiography Chest Without and With Intravenous Contrast CLINICAL HISTORY: Reason for exam: Right face and arm weak/numb. TECHNIQUE: Axial computed tomographic angiography images of the chest without and with intravenous contrast. Automated exposure control was utilized for the study. A dose lowering technique was utilized adhering to the principles of ALARA. MIP reconstructed images were created and reviewed. CONTRAST: Patient received 118 ML of IV contrast COMPARISON: Comparison made to prior CT scan chest from April 17, 2023. FINDINGS: Pulmonary arteries: Unremarkable. No pulmonary embolism. Aorta: There is a dissection of the ascending and proximal descending aorta with filling of the true and false lumens. 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 Status post heart valve replacement. There is a dissection of the proximal abdominal, incompletely visualized. Lungs: Unremarkable. No mass. No consolidation. Pleural space: Unremarkable. No significant effusion. No pneumothorax. Heart: Unremarkable. No cardiomegaly. No significant pericardial effusion. No evidence of RV dysfunction. Bones/joints: Status post median sternotomy. No acute fracture. No dislocation. Soft tissues: Cholelithiasis without cholecystitis. Lymph nodes: Unremarkable. No enlarged lymph nodes. IMPRESSION: No evidence of acute thoracic pathology. Stable aortic dissection status post aortic valve replacement. Electronically signed by: Philomena Hughes MD 05/26/23 03:01 AM Chest X-Ray 05/26/23 00:08 XR chest 1V portable CLINICAL HISTORY: neuro deficit, acute stroke suspected COMPARISON STUDY: Chest radiograph and chest CT April 17, 2023. FINDINGS: There are median sternotomy wires. The postoperative appearance of the thoracic aorta is unchanged with tortuosity. There is no evidence for pulmonary edema or pneumonia. No pneumothorax or pleural effusion. IMPRESSION: No acute cardiopulmonary findings. Stable postoperative findings. ACT 112: Negative or not required by law. Electronically signed by: Romero Harris M.D. 05/26/2023 7:[address] 05/26/23 00:08 Exam(s): CT HEAD Without Contrast EXAM: CT Head Without Intravenous Contrast CLINICAL HISTORY: Reason for exam: neuro deficit, acute stroke suspected. TECHNIQUE: Axial computed tomography images of the head/brain without intravenous contrast. Automated exposure control was utilized for the study. A dose lowering technique was utilized adhering to the principles of ALARA. COMPARISON: No relevant prior studies available. FINDINGS: Brain: Remote ischemic injuries of the bilateral cerebellar lobes. No hemorrhage. No significant white matter disease. No edema. Ventricles: Unremarkable. No ventriculomegaly. Bones/joints: Unremarkable. No acute fracture. Soft tissues: Unremarkable. Sinuses: Unremarkable as visualized. No acute sinusitis. Mastoid air cells: Unremarkable as visualized. No mastoid effusion. IMPRESSION: No evidence of acute intracranial pathology. Electronically signed by: Philomena Hughes MD 05/26/23 02:53 AM Head CTA 05/26/23 00:08 Exam(s): CTA HEAD With Contrast IV Amt: 118 ML EXAM: CT Angiography Head With Intravenous Contrast CLINICAL HISTORY: Reason for exam: neuro deficit, acute stroke suspected. TECHNIQUE: Axial computed tomographic angiography images of the head with intravenous contrast. Automated exposure control was utilized for the study. A dose lowering technique was utilized adhering to the principles of ALARA. MIP reconstructed images were created and reviewed. CONTRAST: Patient received 118 ML of IV contrast COMPARISON: No relevant prior studies available. FINDINGS: The dural venous sinuses are patent. Right internal carotid artery: No acute findings. Intracranial segment is patent with no significant stenosis. No aneurysm. Right anterior cerebral artery: Unremarkable. No occlusion or significant stenosis. No aneurysm. Right middle cerebral artery: Ectatic M1 segment. No aneurysm. Right posterior cerebral artery: Unremarkable. No occlusion or significant stenosis. No aneurysm. Right vertebral artery: Unremarkable as visualized. Left internal carotid artery: No acute findings. Intracranial segment is patent with no significant stenosis. No aneurysm. Left anterior cerebral artery: Ectatic left A2 segment. No aneurysm. Left middle cerebral artery: Ectatic M1 segment. No aneurysm. Left posterior cerebral artery: Unremarkable. No occlusion or significant stenosis. No aneurysm. Left vertebral artery: Unremarkable as visualized. Basilar artery: Vertebral basilar dolichoectasia. No occlusion or significant stenosis. No aneurysm. IMPRESSION: Negative CT angiogram of the head. Electronically signed by: Philomena Hughes MD 05/26/23 02:51 AM Neck CTA 05/26/23 00:08 Exam(s): CTA NECK With Contrast IV Amt: 118 ML EXAM: CT Angiography Neck With Intravenous Contrast CLINICAL HISTORY: Reason for exam: neuro deficit, acute stroke suspected. TECHNIQUE: Routine carotid CT angiography protocol was performed with intravenous contrast. NASCET criteria using the distal ICAs for comparison were used for evaluation of stenoses. Automated exposure control was utilized for the study. A dose lowering technique was utilized adhering to the principles of ALARA. MIP reconstructed images were created and reviewed. CONTRAST: Patient received 118 ML of IV contrast COMPARISON: None. FINDINGS: VASCULATURE: Right common carotid artery: Unremarkable. No occlusion or significant stenosis. No dissection. Right internal carotid artery: Unremarkable. Extracranial segment is patent with no occlusion or significant stenosis. No dissection. Right external carotid artery: Unremarkable. No occlusion. Right vertebral artery: Unremarkable. No occlusion or significant stenosis. No dissection. Left common carotid artery: Unremarkable. No occlusion or significant stenosis. No dissection. Left internal carotid artery: Unremarkable. Extracranial segment is patent with no occlusion or significant stenosis. No dissection. Left external carotid artery: Unremarkable. No occlusion. Left vertebral artery: Unremarkable. No occlusion or significant stenosis. No dissection. NECK: Bones/joints: Severe spinal canal stenosis at C6-7. No acute fracture. Soft tissues: Unremarkable. Lung apices: Clear. CAROTID STENOSIS REFERENCE USING NASCET CRITERIA: % ICA stenosis = (1 - narrowest ICA diameter/diameter of distal cervical ICA) x 100. Mild - <50% stenosis. Moderate - 50-69% stenosis. Severe - 70-94% stenosis. Near occlusion - 95-99% stenosis. Occluded - 100% stenosis. IMPRESSION: Negative CTA neck. Electronically signed by: Philomena Hughes MD 05/26/23 03:06 AM Brain MRI 05/26/23 05:57 MRI OF THE BRAIN WITHOUT CONTRAST CLINICAL HISTORY: Left eye ptosis. Double vision. COMPARISON STUDY: MRA of the head November 21, 2021. Head CT and CTA of the head May 26, 2023. TECHNIQUE: Utilizing a 1.5 Jeanine magnet and dedicated coil, multiplanar, multiecho imaging of the brain was performed without IV contrast. FINDINGS: There is a 5 mm focus of restricted diffusion within the left occipital lobe on diffusion-weighted sequence image 12 of 25. This is hypointense on the ADC map and there is a small corresponding T2 hyperintense focus. There is no mass effect or evidence for hemorrhagic conversion. In addition, there is a 5 mm focus of restricted diffusion within the left cerebellar hemisphere on image 7. Possible additional punctate acute to subacute infarct within the posterior left temporal lobe on image 10. The ventricular system is unremarkable. Basal cisterns are patent. There are no extra-axial collections. Flow-voids for the major intracranial vessels are present. Several old infarcts within the bilateral cerebellar hemispheres are present. There are scattered supratentorial subcortical white matter T2 hyperintense foci. Calvarial signal is normal. Right ethmoid sinuses are partially opacified. There is no mastoid fluid. No intracranial masses are identified on unenhanced exam. IMPRESSION: 1. Small acute to subacute infarcts within the left cerebellar hemisphere and left occipital lobe, measuring 5 mm. Possible punctate acute to subacute infarct within the posterior left temporal lobe. No mass effect. No evidence for hemorrhagic conversion. 2. 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 3. No acute intracranial hemorrhage. ACT 112: Negative or not required by law. Electronically signed by: Romero Harris M.D. 05/26/2023 9:41 AM Pending Results Patient Have Any Pending Studies at Discharge: No Discharge Instructions Given to Patient (Per Discharging Provider) PLEASE REFER TO YOUR NEW MEDICATION LIST AND FOLLOW INSTRUCTIONS CAREFULLY. YOUR NEW MEDICATIONS INCLUDE: Plavix-for stroke prevention Stop taking aspirin. Increase simvastatin from 20 mg to 40 mg p.o. daily Inform your primary care physician immediately if you are experiencing muscle cramping. It is very important that you follow-up with Coumadin clinic for INR checks, and proper Coumadin dosing. It is also very important that you take your Coumadin and other medications on a daily basis to control your medical conditions and prevent medical complications. No driving. PLEASE CALL YOUR PRIMARY CARE PHYSICIAN OR RETURN TO THE ER IF WITH WORSENING OF SYMPTOMS, INCLUDING Chest pain, shortness of breath, palpitations, dizziness, etc. FOLLOW UP WITH PRIMARY CARE PHYSICIAN IN 1 WEEK. FOLLOW-UP WITH COUMADIN CLINIC IN 1 WEEK. [facility] WILL BE NOTIFYING YOU SOON REGARDING AN APPOINTMENT SCHEDULE. TAKE CARE. Who to Call and When: Medical Emergencies: Call 911 immediately if you experience any of the following warning signs and symptoms of Stroke: Sudden numbness or weakness of the face, arm or leg, especially on one side of the body Sudden confusion, trouble speaking or understanding Sudden trouble seeing in one or both eyes Sudden trouble walking, dizziness, loss of balance or coordination Sudden severe headache with no cause Do not delay calling 911 if you experience any warning signs or symptoms of a stroke. Delay in seeking medical attention may affect what treatments can be given to you. Risk Factors for Stroke: You can reduce your chances of stroke by working with your medical provider to adopt a healthy lifestyle. Some specific ways to lower your chance of stroke are: If you are a smoker, now is the time to stop smoking cigarettes If you are diabetic, improve the control of your blood sugars Avoid excessive amounts of alcohol Control high blood pressure Lose weight if you are overweight Be sure to lead an active lifestyle Eat a healthy diet low in salt, cholesterol and fat You should know about other risk factors for stroke that you are unable to control. These include: Age 55 years or older Male gender Certain racial groups: , or / Family History of Stroke, Mini stroke or Heart Attack Sickle Cell Disease Follow Up: It is important for you to keep your follow up appointments with your medical provider. Total Time Total Time Spent Total Time Spent (In Minutes): >30 minutes
== END 2023-05-28 15:06 | disposition home or self-care (01) | DRG 65 ==
LOC: ED 23:20 → EDINP 05-26 05:56 → 2N 05-26 08:36
DX: H02.402 Unspecified ptosis of left eyelid; Z79.01 Long term (current) use of anticoagulants; I63.432 Cerebral infarction due to embolism of left posterior cerebral artery; I69.398 Other sequelae of cerebral infarction; Z79.82 Long term (current) use of aspirin; Q87.418 Marfan syndrome with other cardiovascular manifestations; E78.5 Hyperlipidemia, unspecified; I73.9 Peripheral vascular disease, unspecified; F39 Unspecified mood [affective] disorder; I10 Essential (primary) hypertension; K21.9 Gastro-esophageal reflux disease without esophagitis; H02.432 Paralytic ptosis of left eyelid; Z95.2 Presence of prosthetic heart valve; R73.03 Prediabetes